=== PATIENT | male | born 1965 | race Caucasian/White ===

== ENCOUNTER 2016-11-17 07:04 | Observation (INO) | payer OTHER ==
[2016-11-17] MEDS ORDERED: DEXAMETHASONE SOD PHOSPHATE 10 MG/ML 1 ML VIAL IV STA (07:20)
[2016-11-17] MEDS ORDERED: IPRATROPIUM 0.5 MG/2.5 ML NEBU INHALATION STA (07:20)
[2016-11-17] MEDS ORDERED: ALBUTEROL NEBULIZED 2.5 MG/3 ML INHALATION STA (07:20)
[2016-11-17] MEDS ORDERED: SODIUM CHLORIDE 0.9% 1,000 ML IV STA (07:20)
--- NOTE | 2016-11-17 07:51 | ED ---
General Adult HPI - General Chief complaint: Shortness of Breath Stated complaint: KARTHIK Time Seen by Provider: 11/17/16 07:15 Source: patient, RN notes reviewed Mode of arrival: wheelchair Limitations: no limitations - History of Present Illness Initial comments: 51-year-old male with no significant past medical history presents with 2 day history of cough and difficult breathing. Patient states that this morning he became significantly more short of breath. He also reports some anterior chest tightness. Patient has no known history of asthma or COPD. He is a long-time smoker smokes approximately three quarters of a pack cigarettes daily. Denies fever or chills. Denies any radiating chest pain. Cough is been nonproductive. No gallop pain. No nausea vomiting or diarrhea. - Related Data Home Medications Medication Instructions Recorded Confirmed Dm/Acetaminophen/Doxylamine [Vicks 2 cap PO HS PRN 11/17/16 11/17/16 Nyquil Liquicaps] Allergies Allergy/AdvReac Type Severity Reaction Status Date / Time No Known Allergies Allergy Verified 11/17/16 07:30 Review of Systems ROS Statement: Those systems with pertinent positive or pertinent negative responses have been documented in the HPI. ROS Other: All systems not noted in ROS Statement are negative. Past Medical History Past Medical History: COPD History of Any Multi-Drug Resistant Organisms: None Reported Past Surgical History: Hernia Repair Past Psychological History: No Psychological Hx Reported Smoking Status: Current every day smoker Past Alcohol Use History: Daily Past Drug Use History: Marijuana General Exam Limitations: no limitations General appearance: alert, in distress Head exam: Present: atraumatic, normocephalic Eye exam: Present: normal appearance, PERRL ENT exam: Present: mucous membranes dry Neck exam: Present: full ROM. Absent: meningismus Respiratory exam: Present: respiratory distress, wheezes, rhonchi, prolonged expiratory Cardiovascular Exam: Present: normal rhythm, tachycardia GI/Abdominal exam: Present: soft. Absent: distended, tenderness Extremities exam: Present: normal inspection, normal capillary refill. Absent: pedal edema, calf tenderness Back exam: Present: normal inspection, full ROM. Absent: tenderness Neurological exam: Present: alert, oriented X3 Psychiatric exam: Present: normal affect, normal mood Skin exam: Present: warm, dry, intact. Absent: cyanosis, diaphoretic Course Vital Signs 11/17/16 11/17/16 11/17/16 07:11 07:31 07:49 Temperature 98.2 F Pulse Rate 115 H 109 H 101 H Respiratory 26 H 24 Rate Blood Pressure 168/121 152/89 O2 Sat by Pulse 94 L 100 Oximetry 11/17/16 11/17/16 07:59 08:17 Temperature Pulse Rate 110 H 108 H Respiratory 20 Rate Blood Pressure 164/94 O2 Sat by Pulse 99 Oximetry - Reevaluation(s) Reevaluation #1: 11/17/16 08:57 On reevaluation, respiratory status has improved, however patient still has accessory muscle use, and end expiratory wheeze. EKG Findings - EKG Comments: EKG Findings:: EKG shows sinus tachycardia with a ventricular rate of 111, AL interval 136, QRS duration 84, QTC 456, no ST segment elevation or depression, no T-wave abnormality Medical Decision Making - Medical Decision Making 51-year-old male no history of asthma or COPD presenting with cough and dyspnea. Patient has bilateral end expiratory wheeze, scattered rhonchi, accessory muscle use. He is given albuterol Atrovent, steroids in the emergency department. Chest x-ray is obtained, negative for focal pneumonia. On reevaluation after nebulized treatment patient still has accessory muscle use and proximal spastic cough as well as an expiratory wheeze. He will be placed in observation for continued treatment. Diagnosis: Acute bronchitis, reactive airway disease, tobacco use - Lab Data Result diagrams: 11/17/16 07:15 11/17/16 07:15 Lab Results 11/17/16 11/17/16 11/17/16 Range/Units 07:15 07:15 07:15 WBC 7.0 (3.8-10.6) k/uL RBC 5.18 (4.30-5.90) m/uL Hgb 17.0 (13.0-17.5) gm/dL Hct 48.6 (39.0-53.0) % MCV 93.9 (80.0-100.0) fL MCH 32.9 (25.0-35.0) pg MCHC 35.0 (31.0-37.0) g/dL RDW 13.3 (11.5-15.5) % Plt Count 211 (150-450) k/uL Neutrophils % 80 % Lymphocytes % 9 % Monocytes % 6 % Eosinophils % 3 % Basophils % 0 % Neutrophils # 5.6 (1.3-7.7) k/uL Lymphocytes # 0.6 L (1.0-4.8) k/uL Monocytes # 0.4 (0-1.0) k/uL Eosinophils # 0.2 (0-0.7) k/uL Basophils # 0.0 (0-0.2) k/uL PT (9.0-12.0) sec INR (<1.2) APTT (22.0-30.0) sec D-Dimer (<0.60) mg/L FEU Sodium 140 (137-145) mmol/L Potassium 4.4 (3.5-5.1) mmol/L Chloride 104 (98-107) mmol/L Carbon Dioxide 26 (22-30) mmol/L Anion Gap 10 mmol/L BUN 9 (9-20) mg/dL Creatinine 0.81 (0.66-1.25) mg/dL Est GFR (MDRD) Af Amer >60 (>60 ml/min/1.73 sqM) Est GFR (MDRD) Non-Af >60 (>60 ml/min/1.73 sqM) Glucose 95 (74-99) mg/dL Calcium 9.6 (8.4-10.2) mg/dL Total Bilirubin 0.4 (0.2-1.3) mg/dL AST 61 H (17-59) U/L ALT 55 (21-72) U/L Alkaline Phosphatase 79 (38-126) U/L Total Creatine Kinase 475 H (55-170) U/L CK-MB (CK-2) 8.7 H* (0.0-2.4) ng/mL CK-MB (CK-2) Rel Index 1.8 Troponin I <0.012 (0.000-0.034) ng/mL NT-Pro-B Natriuret Pep pg/mL Total Protein 7.4 (6.3-8.2) g/dL Albumin 4.6 (3.5-5.0) g/dL 11/17/16 11/17/16 Range/Units 07:15 07:15 WBC (3.8-10.6) k/uL RBC (4.30-5.90) m/uL Hgb (13.0-17.5) gm/dL Hct (39.0-53.0) % MCV (80.0-100.0) fL MCH (25.0-35.0) pg MCHC (31.0-37.0) g/dL RDW (11.5-15.5) % Plt Count (150-450) k/uL Neutrophils % % Lymphocytes % % Monocytes % % Eosinophils % % Basophils % % Neutrophils # (1.3-7.7) k/uL Lymphocytes # (1.0-4.8) k/uL Monocytes # (0-1.0) k/uL Eosinophils # (0-0.7) k/uL Basophils # (0-0.2) k/uL PT 9.5 (9.0-12.0) sec INR 0.9 (<1.2) APTT 24.5 (22.0-30.0) sec D-Dimer 0.29 (<0.60) mg/L FEU Sodium (137-145) mmol/L Potassium (3.5-5.1) mmol/L Chloride (98-107) mmol/L Carbon Dioxide (22-30) mmol/L Anion Gap mmol/L BUN (9-20) mg/dL Creatinine (0.66-1.25) mg/dL Est GFR (MDRD) Af Amer (>60 ml/min/1.73 sqM) Est GFR (MDRD) Non-Af (>60 ml/min/1.73 sqM) Glucose (74-99) mg/dL Calcium (8.4-10.2) mg/dL Total Bilirubin (0.2-1.3) mg/dL AST (17-59) U/L ALT (21-72) U/L Alkaline Phosphatase (38-126) U/L Total Creatine Kinase (55-170) U/L CK-MB (CK-2) (0.0-2.4) ng/mL CK-MB (CK-2) Rel Index Troponin I (0.000-0.034) ng/mL NT-Pro-B Natriuret Pep 78 pg/mL Total Protein (6.3-8.2) g/dL Albumin (3.5-5.0) g/dL Disposition Clinical Impression: Reactive airway disease Disposition: [facility] Referrals: None,Stated [Primary Care Provider] - 1-2 days Decision to Admit Reason: Admit from EC Decision Date: 11/17/16 Decision Time: 08:58
[2016-11-17 07:54] LABS: Basophils % (A) 0 %; CH 33.1; CHCM 35.4; Eosinophils # (A) 0.2 k/uL (0-0.7); Eosinophils % (A) 3 %; HCT 48.6 % (39.0-53.0); HDW 2.35; Luc # (Auto) 0.09; Luc % (Auto) 1; Lymphocytes # (A) 0.6 k/uL (1.0-4.8); Lymphocytes % (A) 9 %; MCH 32.9 pg (25.0-35.0); MCV 93.9 fL (80.0-100.0); Mean Platelet Volume 6.8; Monocytes # (A) 0.4 k/uL (0-1.0); Monocytes % (A) 6 %; Neutrophils # (A) 5.6 k/uL (1.3-7.7); Neutrophils % (A) 80 %; RBC 5.18 m/uL (4.30-5.90); RDW 13.3 % (11.5-15.5); WBC (Perox) 7.28
[2016-11-17 07:55] LABS: ALT 55 U/L (21-72); AST 61 U/L (17-59); Alkaline Phosphatase 79 U/L (38-126); Anion Gap 10 mmol/L; Blood Urea Nitrogen 9 mg/dL (9-20); Calcium 9.6 mg/dL (8.4-10.2); Carbon Dioxide 26 mmol/L (22-30); Chloride 104 mmol/L (98-107); Glucose 95 mg/dL (74-99); Non-African American GFR(MDRD) >60 (>60 ml/min/1.73 sqM); Potassium 4.4 mmol/L (3.5-5.1); Sodium 140 mmol/L (137-145); Total Bilirubin 0.4 mg/dL (0.2-1.3); Total Protein 7.4 g/dL (6.3-8.2)
[2016-11-17 08:01] LABS: INR 0.9 (<1.2); Partial Thromboplastin Time 24.5 sec (22.0-30.0); Prothrombin Time 9.5 sec (9.0-12.0)
[2016-11-17 08:09] LABS: Creatine Kinase 475 U/L (55-170)
--- NOTE | 2016-11-17 08:22 | XR ---
EXAMINATION TYPE: XR chest 2V DATE OF EXAM: 11/17/2016 COMPARISON: 07/04/2011 HISTORY: Shortness of breath TECHNIQUE: Frontal and lateral views of the chest are obtained. FINDINGS: Scattered senescent parenchymal changes noted. Hyperinflation compatible with COPD. No evidence for infiltrate. No evidence for atelectasis. Heart size is stable. Mediastinal structures are stable and grossly unremarkable. No evidence for hilar prominence. Degenerative changes dorsal spine. IMPRESSION: 1. No evidence for acute pulmonary disease.
[2016-11-17 08:23] LABS: Troponin I <0.012 ng/mL (0.000-0.034)
[2016-11-17 08:36] LABS: Creatine Kinase MB 8.7 ng/mL (0.0-2.4)
[2016-11-17] MEDS ORDERED: LEVOFLOXACIN 500 MG TAB PO SCH (09:00)
[2016-11-17] MEDS ORDERED: NICOTINE 21MG/24HR PATCH TRANSDERM SCH (09:00)
[2016-11-17] MEDS ORDERED: predniSONE 20 MG TAB PO SCH (12:00)
[2016-11-17] MEDS: IPRATROPIUM-ALBUTEROL 3 ML NEB INHALATION PRN ×2 (14:06→16:56)
[2016-11-17] MEDS ORDERED: HEPARIN SODIUM,PORCINE 5,000 UNIT/ML 1 ML VIAL SQ SCH (16:00)
[2016-11-17 19:32] VITALS: BP 142/88; PULSE 98; RESP 16; TEMP 98.3
--- NOTE | 2017-01-14 11:49 | P.HPIM ---
History of Present Illness H&P Date: 11/17/16 Chief Complaint: Shortness of breath 51-year-old male with no significant past medical history presents to the ER with complaints of shortness of breath and cough worsening for the past 2 days. Patient otherwise denied any sputum production. No complaints of chest pain patient does have chest tightness. Patient continues to smoke on a daily basis. Denied any nausea vomiting or abdominal pain no fever no chills. No recent illnesses or sick contacts. No recent travel. Review of Systems Constitutional: Patient denies any fever or chills . No generalized weakness or weight loss. Abdomen: Patient denied nausea vomiting and diarrhea and abdominal pain. Cardiovascular: Patient denies any chest pain or short of breath no palpitations. Respiratory: He does have cough without sputum production. Shortness of breath. Neurologic: Patient denied any numbness or tingling headache. Musculoskeletal: Patient denies any complaints of joint swelling or deformity. Skin: Negative Psychiatric: Negative Endocrine: No heat or cold intolerance. No recent weight gain. Genitourinary: No dysuria or hematuria. All other 14 point ROS negative except the above Past Medical History Past Medical History: COPD History of Any Multi-Drug Resistant Organisms: None Reported Past Surgical History: Hernia Repair Additional Past Surgical History / Comment(s): Bilateral inguinal hernia repairs. Past Anesthesia/Blood Transfusion Reactions: No Reported Reaction Smoking Status: Current every day smoker - Past Family History Mother Family Medical History: Diabetes Mellitus Additional Family Medical History / Comment(s): Mother has type II diabetes and trigeminal neuralgia Father Family Medical History: Coronary Artery Disease (CAD) Additional Family Medical History / Comment(s): Father had CABG and a mitral valve replaced. He is . Medications and Allergies Home Medications Medication Instructions Recorded Confirmed Type Dm/Acetaminophen/Doxylamine [Vicks 2 cap PO HS PRN 11/17/16 11/17/16 History Nyquil Liquicaps] Allergies Allergy/AdvReac Type Severity Reaction Status Date / Time No Known Allergies Allergy Verified 11/17/16 07:30 Physical Exam Vitals: Vital Signs Temp Pulse Resp BP Pulse Ox 11/17/16 11:12 98.7 F 90 18 144/98 95 11/17/16 09:47 98.4 F 96 20 137/88 95 11/17/16 08:17 108 H 20 164/94 99 11/17/16 07:59 110 H 11/17/16 07:49 101 H 24 152/89 100 11/17/16 07:31 109 H 11/17/16 07:11 98.2 F 115 H 26 H 168/121 94 L Intake and Output 11/16/16 11/17/16 11/17/16 22:59 06:59 14:59 Other: Weight 79.379 kg Patient Weight 11/18/16 06:59 Weight 79.379 kg PHYSICAL EXAMINATION: Patient is lying in the bed comfortably, no acute distress, awake alert and oriented.. HEENT: Normocephalic. Neck is supple. Pupils reactive. Nostrils clear. Oral cavity is moist. Ears reveal no drainage. Neck reveals no JVD, carotid bruits, or thyromegaly. CHEST EXAMINATION: Trachea is central. Symmetrical expansion. Bilateral air entry diminished with expiratory wheezing CARDIAC: Normal S1, S2 with no gallops. No murmurs ABDOMEN: Soft. Bowel sounds normal. No organomegaly. No abdominal bruits. Extremities: reveal no edema. No clubbing or cyanosis Neurologically awake, alert, oriented x3 with well-coordinated movements. No focal deficits noted Skin: No rash or skin lesions. Psychiatric: Operative. Nonsuicidal Musculoskeletal: No joint swelling or deformity. Normal range of motion. Results CBC & Chem 7: 11/17/16 07:15 11/17/16 07:15 Labs: Abnormal Lab Results - Last 24 Hours (Table) 11/17/16 11/17/16 11/17/16 Range/Units 07:15 07:15 07:15 Lymphocytes # 0.6 L (1.0-4.8) k/uL AST 61 H (17-59) U/L Total Creatine Kinase 475 H (55-170) U/L CK-MB (CK-2) 8.7 H* (0.0-2.4) ng/mL Thrombosis Risk Factor Assmnt - Choose All That Apply Any of the Below Risk Factors Present?: Yes Each Factor Represents 1 point: Age 41-60 years, Obesity (BMI >25) Other Risk Factors: No Other congenital or acquired thrombophilia - If yes, enter type in comment: No Thrombosis Risk Factor Assessment Total Risk Factor Score: 2 Thrombosis Risk Factor Assessment Level: Low Risk Assessment and Plan Assessment: #1 acute bronchospasm. Suspected underlying COPD with exacerbation Plan: Patient will be continued on DuoNeb's, prednisone and antibiotics in the form of levofloxacin. We will continue to monitor closely. Patient was advised to follow with pulmonary clinic upon discharge for pulmonary function tests. We will continue to monitor the patient and further recommendations as to on the clinical course.
--- NOTE | 2017-01-14 11:51 | P.DS ---
Providers Date of admission: 11/17/16 08:55 Expected date of discharge: 11/17/16 Attending physician: Randall Hummel Primary care physician: Stated None Hospital Course: Discharge diagnosis #1 acute bronchospasm. Suspected underlying COPD with exacerbation Hospital course 51-year-old male with no significant past medical history presents to the ER with complaints of shortness of breath and cough worsening for the past 2 days. Patient otherwise denied any sputum production. No complaints of chest pain patient does have chest tightness. Patient continues to smoke on a daily basis. Denied any nausea vomiting or abdominal pain no fever no chills. No recent illnesses or sick contacts. No recent travel. Patient was continued on DuoNeb's, prednisone and antibiotics in the form of levofloxacin. Patient was advised to follow with pulmonary clinic upon discharge for pulmonary function tests. We will continue to monitor the patient and further recommendations as to on the clinical course. Patient left AMA Patient Condition at Discharge: Fair Plan - Discharge Summary New Discharge Prescriptions: No Action Dm/Acetaminophen/Doxylamine [Vicks Nyquil Liquicaps] 2 cap PO HS PRN PRN Reason: Cold Symptoms Discharge Medication List Dm/Acetaminophen/Doxylamine [Vicks Nyquil Liquicaps] 2 cap PO HS PRN 11/17/16 [ History] Follow up Appointment(s)/Referral(s): None,Stated [Primary Care Provider] - 1-2 days Discharge Disposition: Left Against Medical Advice
== END 2016-11-17 21:18 | disposition left against medical advice (07) ==
LOC: EC 07:04 → 3OBS 08:55
PROVIDERS: ADMIT Internal Medicine; ATTEND Internal Medicine
DX: J45.909 Unspecified asthma, uncomplicated (principal); J20.9 Acute bronchitis, unspecified; F17.210 Nicotine dependence, cigarettes, uncomplicated
CPT/HCPCS: 36415; 71020; 80053; 82550; 82553; 83880; 84484; 85025; 85379; 85610; 85730; 87040; 93005; 94640; 96361; 96374; 99285

== ENCOUNTER 2021-07-08 21:37 | Inpatient (IN) | payer OTHER ==
--- NOTE | 2021-07-08 23:03 | ED ---
SOB HPI - General Chief Complaint: Shortness of Breath Stated Complaint: KARTHIK Time Seen by Provider: 07/08/21 23:01 Source: patient, RN notes reviewed, old records reviewed Mode of arrival: wheelchair Limitations: no limitations - History of Present Illness Initial Comments: Is a 56-year-old male who does have history of COPD. Patient presented today fo r cough congestion fever mainly not feeling well. He doesn't have any travel history sick contacts did for [place] today which was negative. No real chest pain just shortness of breath cough congestion. No travel history no significant sick contacts. Patient has had rotavirus in the past. MD Complaint: shortness of breath, cough, "asthma attack" (Fever) -: days(s) Severity: moderate Severity scale (1-10): 7 Quality: aching Consistency: constant Improves With: nothing Worsens With: exertion, movement Known History Of: COPD, asthma, recurrent pneumonia Context: recent URI, anxiety, recent illness Associated Symptoms: pain with inspiration, fever, cough, sputum production Treatments Prior to Arrival: none - Related Data Home Medications Medication Instructions Recorded Confirmed Dm/Acetaminophen/Doxylamine [Vicks 2 cap PO HS PRN 11/17/16 11/17/16 Nyquil Liquicaps] Allergies Allergy/AdvReac Type Severity Reaction Status Date / Time No Known Allergies Allergy Verified 07/08/21 22:53 Review of Systems ROS Statement: Those systems with pertinent positive or pertinent negative responses have been documented in the HPI. ROS Other: All systems not noted in ROS Statement are negative. Past Medical History Past Medical History: COPD History of Any Multi-Drug Resistant Organisms: None Reported Past Surgical History: Hernia Repair Additional Past Surgical History / Comment(s): Bilateral inguinal hernia repairs. Past Anesthesia/Blood Transfusion Reactions: No Reported Reaction Past Psychological History: No Psychological Hx Reported Smoking Status: Current every day smoker Past Alcohol Use History: Daily Past Drug Use History: Marijuana - Past Family History Mother Family Medical History: Diabetes Mellitus Additional Family Medical History / Comment(s): Mother has type II diabetes and trigeminal neuralgia Father Family Medical History: Coronary Artery Disease (CAD) Additional Family Medical History / Comment(s): Father had CABG and a mitral valve replaced. He is . General Exam Limitations: no limitations General appearance: alert, in no apparent distress, anxious Head exam: Present: atraumatic, normocephalic, normal inspection Eye exam: Present: normal appearance, PERRL, EOMI. Absent: scleral icterus, conjunctival injection, periorbital swelling ENT exam: Present: normal exam, mucous membranes dry Neck exam: Present: normal inspection. Absent: tenderness, meningismus, lym phadenopathy Respiratory exam: Present: respiratory distress, wheezes, accessory muscle use, decreased breath sounds, prolonged expiratory. Absent: rales, rhonchi, stridor Cardiovascular Exam: Present: normal rhythm, tachycardia, normal heart sounds. Absent: systolic murmur, diastolic murmur, rubs, gallop, clicks GI/Abdominal exam: Present: soft, normal bowel sounds. Absent: distended, tenderness, guarding, rebound, rigid Extremities exam: Present: normal inspection, full ROM, normal capillary refill. Absent: tenderness, pedal edema, joint swelling, calf tenderness Back exam: Present: normal inspection Neurological exam: Present: alert, oriented X3, CN II-XII intact Psychiatric exam: Present: normal affect, normal mood Skin exam: Present: warm, dry, intact, normal color. Absent: rash Course Vital Signs 07/08/21 07/09/21 07/09/21 22:48 00:20 00:25 Temperature 103 F H Pulse Rate 154 H 140 H 138 H Respiratory 24 Rate Blood Pressure 121/74 O2 Sat by Pulse 93 L Oximetry - Reevaluation(s) Reevaluation #1: 07/08/21 23:40 Medical record is reviewed Reevaluation #2: 07/09/21 00:55 Patient feeling improved here in the emergency department Reevaluation #3: 07/09/21 00:56 Patient informed results and questions answered - Consultations Consultation #1: Spoke with allegra who agrees to admit this patient Medical Decision Making - Medical Decision Making 56 male in mild distress with fever positive for influenza COPD exacerbation and impending alcohol withdrawal. Patient will be admitted for monitoring of the above, supportive care also hypomagnesemia and replacement - Lab Data Result diagrams: 07/08/21 23:17 07/08/21 23:17 Lab Results 07/08/21 07/08/21 07/08/21 Range/Units 22:56 22:56 23:17 WBC 5.0 (3.8-10.6) k/uL RBC 3.39 L (4.30-5.90) m/uL Hgb 14.3 (13.0-17.5) gm/dL Hct 40.5 (39.0-53.0) % MCV 119.4 H (80.0-100.0) fL MCH 42.3 H (25.0-35.0) pg MCHC 35.4 (31.0-37.0) g/dL RDW 15.7 H (11.5-15.5) % Plt Count 142 L (150-450) k/uL MPV 8.0 Neutrophils % (Manual) 82 % Band Neuts % (Manual) 5 % Lymphocytes % (Manual) 3 % Monocytes % (Manual) 9 % Basophils % (Manual) 1 % Neutrophils # (Manual) 4.30 (1.3-7.7) k/uL Lymphocytes # (Manual) 0.15 L (1.0-4.8) k/uL Monocytes # (Manual) 0.45 (0-1.0) k/uL Basophils # (Manual) 0.05 (0-0.2) k/uL Nucleated RBCs 0 (0-0) /100 WBC Manual Slide Review Performed Poikilocytosis (manual Present Macrocytosis Marked A Stomatocytes Present PT (9.0-12.0) sec INR (<1.2) APTT (22.0-30.0) sec Sodium (137-145) mmol/L Potassium (3.5-5.1) mmol/L Chloride (98-107) mmol/L Carbon Dioxide (22-30) mmol/L Anion Gap mmol/L BUN (9-20) mg/dL Creatinine (0.66-1.25) mg/dL Est GFR (CKD-EPI)AfAm (>60 ml/min/1.73 sqM) Est GFR (CKD-EPI)NonAf (>60 ml/min/1.73 sqM) Glucose (74-99) mg/dL Plasma Lactic Acid Pop (0.7-2.0) mmol/L Calcium (8.4-10.2) mg/dL Magnesium (1.6-2.3) mg/dL Total Bilirubin (0.2-1.3) mg/dL AST (17-59) U/L ALT (4-49) U/L Alkaline Phosphatase (38-126) U/L Troponin I (0.000-0.034) ng/mL C-Reactive Protein (<1.0) mg/dL NT-Pro-B Natriuret Pep pg/mL Total Protein (6.3-8.2) g/dL Albumin (3.5-5.0) g/dL Coronavirus (PCR) Not Detected (Not Detectd) Influenza Type A RNA Detected H (Not Detectd) Influenza Type B (PCR) Not Detected (Not Detectd) 07/08/21 07/08/21 07/08/21 Range/Units 23:17 23:17 23:17 WBC (3.8-10.6) k/uL RBC (4.30-5.90) m/uL Hgb (13.0-17.5) gm/dL Hct (39.0-53.0) % MCV (80.0-100.0) fL MCH (25.0-35.0) pg MCHC (31.0-37.0) g/dL RDW (11.5-15.5) % Plt Count (150-450) k/uL MPV Neutrophils % (Manual) % Band Neuts % (Manual) % Lymphocytes % (Manual) % Monocytes % (Manual) % Basophils % (Manual) % Neutrophils # (Manual) (1.3-7.7) k/uL Lymphocytes # (Manual) (1.0-4.8) k/uL Monocytes # (Manual) (0-1.0) k/uL Basophils # (Manual) (0-0.2) k/uL Nucleated RBCs (0-0) /100 WBC Manual Slide Review Poikilocytosis (manual Macrocytosis Stomatocytes PT 10.8 (9.0-12.0) sec INR 1.0 (<1.2) APTT 27.7 (22.0-30.0) sec Sodium 127 L (137-145) mmol/L Potassium 3.8 (3.5-5.1) mmol/L Chloride 93 L (98-107) mmol/L Carbon Dioxide 26 (22-30) mmol/L Anion Gap 8 mmol/L BUN 15 (9-20) mg/dL Creatinine 0.87 (0.66-1.25) mg/dL Est GFR (CKD-EPI)AfAm >90 (>60 ml/min/1.73 sqM) Est GFR (CKD-EPI)NonAf >90 (>60 ml/min/1.73 sqM) Glucose 105 H (74-99) mg/dL Plasma Lactic Acid Pop 1.6 (0.7-2.0) mmol/L Calcium 8.6 (8.4-10.2) mg/dL Magnesium 0.9 L* (1.6-2.3) mg/dL Total Bilirubin 1.0 (0.2-1.3) mg/dL AST 119 H (17-59) U/L ALT 38 (4-49) U/L Alkaline Phosphatase 122 (38-126) U/L Troponin I (0.000-0.034) ng/mL C-Reactive Protein 5.9 H (<1.0) mg/dL NT-Pro-B Natriuret Pep pg/mL Total Protein 6.9 (6.3-8.2) g/dL Albumin 4.3 (3.5-5.0) g/dL Coronavirus (PCR) (Not Detectd) Influenza Type A RNA (Not Detectd) Influenza Type B (PCR) (Not Detectd) 07/08/21 07/08/21 Range/Units 23:17 23:17 WBC (3.8-10.6) k/uL RBC (4.30-5.90) m/uL Hgb (13.0-17.5) gm/dL Hct (39.0-53.0) % MCV (80.0-100.0) fL MCH (25.0-35.0) pg MCHC (31.0-37.0) g/dL RDW (11.5-15.5) % Plt Count (150-450) k/uL MPV Neutrophils % (Manual) % Band Neuts % (Manual) % Lymphocytes % (Manual) % Monocytes % (Manual) % Basophils % (Manual) % Neutrophils # (Manual) (1.3-7.7) k/uL Lymphocytes # (Manual) (1.0-4.8) k/uL Monocytes # (Manual) (0-1.0) k/uL Basophils # (Manual) (0-0.2) k/uL Nucleated RBCs (0-0) /100 WBC Manual Slide Review Poikilocytosis (manual Macrocytosis Stomatocytes PT (9.0-12.0) sec INR (<1.2) APTT (22.0-30.0) sec Sodium (137-145) mmol/L Potassium (3.5-5.1) mmol/L Chloride (98-107) mmol/L Carbon Dioxide (22-30) mmol/L Anion Gap mmol/L BUN (9-20) mg/dL Creatinine (0.66-1.25) mg/dL Est GFR (CKD-EPI)AfAm (>60 ml/min/1.73 sqM) Est GFR (CKD-EPI)NonAf (>60 ml/min/1.73 sqM) Glucose (74-99) mg/dL Plasma Lactic Acid Pop (0.7-2.0) mmol/L Calcium (8.4-10.2) mg/dL Magnesium (1.6-2.3) mg/dL Total Bilirubin (0.2-1.3) mg/dL AST (17-59) U/L ALT (4-49) U/L Alkaline Phosphatase (38-126) U/L Troponin I 0.023 (0.000-0.034) ng/mL C-Reactive Protein (<1.0) mg/dL NT-Pro-B Natriuret Pep 250 pg/mL Total Protein (6.3-8.2) g/dL Albumin (3.5-5.0) g/dL Coronavirus (PCR) (Not Detectd) Influenza Type A RNA (Not Detectd) Influenza Type B (PCR) (Not Detectd) - EKG Data -: EKG Interpreted by Me (EKG is sinus tachycardia 151 PA 126 QRS 90 QTC 365) - Radiology Data Radiology results: report reviewed (Chest x-rays negative for acute disease), image reviewed Critical Care Time Critical Care Time: Yes Total Critical Care Time: 31 Disposition Clinical Impression: Reactive airway disease, Acute exacerbation of chronic obstructive pulmonary disease, Fever, Tachycardia, Hypomagnesemia, Influenza A, Weakness, Alcohol withdrawal, Sepsis Disposition: ADMITTED IP TO THIS HOSP Condition: Fair Is patient prescribed a controlled substance at d/c from ED?: No Referrals: None,Stated [Primary Care Provider] - 1-2 days
[2021-07-08] MEDS ORDERED: SODIUM CHLORIDE 0.9% 500 ML 500 ML IV STA (23:05)
[2021-07-08] MEDS ORDERED: IPRATROPIUM-ALBUTEROL 3 ML NEB INHALATION STA (23:05)
[2021-07-08] MEDS ORDERED: IBUPROFEN 800 MG TAB PO STA (23:05)
[2021-07-08] MEDS ORDERED: ACETAMINOPHEN TAB 500 MG TAB PO STA (23:05)
[2021-07-08] MEDS ORDERED: SODIUM CHLORIDE 0.9% 1,000 ML IV STA ×2 (23:05)
--- NOTE | 2021-07-08 23:45 | XR ---
EXAMINATION TYPE: XR chest 1V portable DATE OF EXAM: 07/08/2021 COMPARISON: 11/17/2016 HISTORY: Short of breath TECHNIQUE: FINDINGS: Heart is normal. Lungs are clear of infiltrate. No heart failure. There are chest leads. Co stophrenic angles are clear. IMPRESSION: No active cardiopulmonary disease. No change.
[2021-07-08 23:49] LABS: HCT 40.5 % (39.0-53.0); HGB 14.3 gm/dL (13.0-17.5); MCHC 35.4 g/dL (31.0-37.0); MCV 119.4 fL (80.0-100.0); Macrocytosis Marked; Platelet Count 142 k/uL (150-450); RBC 3.39 m/uL (4.30-5.90); RDW 15.7 % (11.5-15.5)
[2021-07-08 23:50] LABS: MCH 42.3 pg (25.0-35.0)
[2021-07-08 23:58] LABS: Partial Thromboplastin Time 27.7 sec (22.0-30.0); Prothrombin Time 10.8 sec (9.0-12.0)
[2021-07-09 00:07] LABS: ALT 38 U/L (4-49); AST 119 U/L (17-59); African American GFR (CKD) >90 (>60 ml/min/1.73 sqM); Albumin 4.3 g/dL (3.5-5.0); Alkaline Phosphatase 122 U/L (38-126); Anion Gap 8 mmol/L; Blood Urea Nitrogen 15 mg/dL (9-20); C Reactive Protein 5.9 mg/dL (<1.0); Calcium 8.6 mg/dL (8.4-10.2); Carbon Dioxide 26 mmol/L (22-30); Chloride 93 mmol/L (98-107); Glucose 105 mg/dL (74-99); Non-African American GFR(CKD) >90 (>60 ml/min/1.73 sqM); Potassium 3.8 mmol/L (3.5-5.1); Sodium 127 mmol/L (137-145); Total Protein 6.9 g/dL (6.3-8.2)
[2021-07-09 00:12] LABS: Magnesium 0.9 mg/dL (1.6-2.3)
[2021-07-09] MEDS ORDERED: SODIUM CHLORIDE 0.9% 1,000 ML IV STA (00:43)
[2021-07-09] MEDS ORDERED: MAGNESIUM OXIDE 400 MG TAB PO STA (00:43)
[2021-07-09] MEDS ORDERED: SODIUM CHLORIDE 0.9% 500 ML 500 ML IV STA (00:43)
[2021-07-09] MEDS ORDERED: OSELTAMIVIR 75 MG CAP PO STA (00:44)
[2021-07-09] MEDS ORDERED: ONDANSETRON 4 MG/2 ML VIAL IVP STA (00:45)
[2021-07-09] MEDS ORDERED: DIAZEPAM 5 MG/ML 2 ML INJ IVP STA (00:45)
[2021-07-09] MEDS ORDERED: DIAZEPAM 5 MG/ML 2 ML INJ IVP PRN (00:45)
[2021-07-09] MEDS ORDERED: ONDANSETRON 4 MG/2 ML VIAL IVP PRN (00:45)
[2021-07-09] MEDS ORDERED: LORazepam 2 MG/ML INJ IV STA ×6 (00:45→04:01)
[2021-07-09 00:49] LABS: Band Neutrophils % 5 %; Basophils # (M) 0.05 k/uL (0-0.2); Lymphocytes # (M) 0.15 k/uL (1.0-4.8); Monocytes # (M) 0.45 k/uL (0-1.0); Neutrophils % (M) 82 %; Nucleated Red Blood Cells 0 /100 WBC (0-0); Total Cells Counted 100
[2021-07-09 00:51] LABS: Poikilocytosis (M) Present; Stomatocytes Present
[2021-07-09] MEDS ORDERED: methylPREDNISolone SOD SUCCI 125 MG/2 ML VIAL IV STA (00:52)
[2021-07-09] MEDS ORDERED: NALOXONE 0.4 MG/ML 1 ML VIAL IV PRN ×2 (00:52→04:02)
[2021-07-09] MEDS ORDERED: ACETAMINOPHEN TAB 325 MG TAB PO PRN (00:52)
[2021-07-09] MEDS ORDERED: IPRATROPIUM-ALBUTEROL 3 ML NEB INHALATION PRN (00:52)
[2021-07-09] MEDS ORDERED: MORPHINE SULFATE 4 MG/ML SYRINGE IV PRN (00:52)
[2021-07-09] MEDS ORDERED: IPRATROPIUM-ALBUTEROL 3 ML NEB INHALATION STA (00:52)
[2021-07-09] MEDS ORDERED: THIAMINE 100 MG/ML 2 ML VIAL IM ONE (01:00)
[2021-07-09] MEDS: MAGNESIUM SULFATE-D5W PMX 1 GM in DEXTROSE/WATER 1 100ML.BAG IVPB SCH ×4 (01:11→06:09)
[2021-07-09] MEDS: DEXTROSE 5%-0.45% NACL 1,000 ML IV SCH ×2 (01:14→15:14)
[2021-07-09] MEDS: LORazepam 2 MG/ML INJ IV PRN ×2 (03:17→03:25)
[2021-07-09] MEDS ORDERED: MIDAZOLAM 1 MG/ML 5 ML VIAL IV STA (03:55)
[2021-07-09] MEDS ORDERED: SUCCINYLCHOLINE CHLORIDE VIAL 200 MG/10 ML VIAL IV STA (03:58)
[2021-07-09] MEDS ORDERED: PROPOFOL 10 MG/ML 20 ML VIAL IV ONE (04:02)
--- NOTE | 2021-07-09 04:06 | ED ---
Medical Decision Making - Medical Decision Making 56-year-old male date on condition. Patient does have influenza with road going to significantly active delirium tremens requiring significant amounts of Ativan to the point of unresponsiveness not involuntary movements possible seizure-like activity. Patient intubated for airway protection and will be transferred inpatient care in the ICU - Lab Data Result diagrams: 07/08/21 23:17 07/08/21 23:17 Lab Results 07/08/21 07/08/21 07/08/21 Range/Units 22:56 22:56 23:17 WBC 5.0 (3.8-10.6) k/uL RBC 3.39 L (4.30-5.90) m/uL Hgb 14.3 (13.0-17.5) gm/dL Hct 40.5 (39.0-53.0) % MCV 119.4 H (80.0-100.0) fL MCH 42.3 H (25.0-35.0) pg MCHC 35.4 (31.0-37.0) g/dL RDW 15.7 H (11.5-15.5) % Plt Count 142 L (150-450) k/uL MPV 8.0 Neutrophils % (Manual) 82 % Band Neuts % (Manual) 5 % Lymphocytes % (Manual) 3 % Monocytes % (Manual) 9 % Basophils % (Manual) 1 % Neutrophils # (Manual) 4.30 (1.3-7.7) k/uL Lymphocytes # (Manual) 0.15 L (1.0-4.8) k/uL Monocytes # (Manual) 0.45 (0-1.0) k/uL Basophils # (Manual) 0.05 (0-0.2) k/uL Nucleated RBCs 0 (0-0) /100 WBC Manual Slide Review Performed Poikilocytosis (manual Present Macrocytosis Marked A Stomatocytes Present PT (9.0-12.0) sec INR (<1.2) APTT (22.0-30.0) sec Sodium (137-145) mmol/L Potassium (3.5-5.1) mmol/L Chloride (98-107) mmol/L Carbon Dioxide (22-30) mmol/L Anion Gap mmol/L BUN (9-20) mg/dL Creatinine (0.66-1.25) mg/dL Est GFR (CKD-EPI)AfAm (>60 ml/min/1.73 sqM) Est GFR (CKD-EPI)NonAf (>60 ml/min/1.73 sqM) Glucose (74-99) mg/dL Plasma Lactic Acid Pop (0.7-2.0) mmol/L Calcium (8.4-10.2) mg/dL Magnesium (1.6-2.3) mg/dL Total Bilirubin (0.2-1.3) mg/dL AST (17-59) U/L ALT (4-49) U/L Alkaline Phosphatase (38-126) U/L Troponin I (0.000-0.034) ng/mL C-Reactive Protein (<1.0) mg/dL NT-Pro-B Natriuret Pep pg/mL Total Protein (6.3-8.2) g/dL Albumin (3.5-5.0) g/dL Coronavirus (PCR) Not Detected (Not Detectd) Influenza Type A RNA Detected H (Not Detectd) Influenza Type B (PCR) Not Detected (Not Detectd) 07/08/21 07/08/21 07/08/21 Range/Units 23:17 23:17 23:17 WBC (3.8-10.6) k/uL RBC (4.30-5.90) m/uL Hgb (13.0-17.5) gm/dL Hct (39.0-53.0) % MCV (80.0-100.0) fL MCH (25.0-35.0) pg MCHC (31.0-37.0) g/dL RDW (11.5-15.5) % Plt Count (150-450) k/uL MPV Neutrophils % (Manual) % Band Neuts % (Manual) % Lymphocytes % (Manual) % Monocytes % (Manual) % Basophils % (Manual) % Neutrophils # (Manual) (1.3-7.7) k/uL Lymphocytes # (Manual) (1.0-4.8) k/uL Monocytes # (Manual) (0-1.0) k/uL Basophils # (Manual) (0-0.2) k/uL Nucleated RBCs (0-0) /100 WBC Manual Slide Review Poikilocytosis (manual Macrocytosis Stomatocytes PT 10.8 (9.0-12.0) sec INR 1.0 (<1.2) APTT 27.7 (22.0-30.0) sec Sodium 127 L (137-145) mmol/L Potassium 3.8 (3.5-5.1) mmol/L Chloride 93 L (98-107) mmol/L Carbon Dioxide 26 (22-30) mmol/L Anion Gap 8 mmol/L BUN 15 (9-20) mg/dL Creatinine 0.87 (0.66-1.25) mg/dL Est GFR (CKD-EPI)AfAm >90 (>60 ml/min/1.73 sqM) Est GFR (CKD-EPI)NonAf >90 (>60 ml/min/1.73 sqM) Glucose 105 H (74-99) mg/dL Plasma Lactic Acid Pop 1.6 (0.7-2.0) mmol/L Calcium 8.6 (8.4-10.2) mg/dL Magnesium 0.9 L* (1.6-2.3) mg/dL Total Bilirubin 1.0 (0.2-1.3) mg/dL AST 119 H (17-59) U/L ALT 38 (4-49) U/L Alkaline Phosphatase 122 (38-126) U/L Troponin I (0.000-0.034) ng/mL C-Reactive Protein 5.9 H (<1.0) mg/dL NT-Pro-B Natriuret Pep pg/mL Total Protein 6.9 (6.3-8.2) g/dL Albumin 4.3 (3.5-5.0) g/dL Coronavirus (PCR) (Not Detectd) Influenza Type A RNA (Not Detectd) Influenza Type B (PCR) (Not Detectd) 07/08/21 07/08/21 Range/Units 23:17 23:17 WBC (3.8-10.6) k/uL RBC (4.30-5.90) m/uL Hgb (13.0-17.5) gm/dL Hct (39.0-53.0) % MCV (80.0-100.0) fL MCH (25.0-35.0) pg MCHC (31.0-37.0) g/dL RDW (11.5-15.5) % Plt Count (150-450) k/uL MPV Neutrophils % (Manual) % Band Neuts % (Manual) % Lymphocytes % (Manual) % Monocytes % (Manual) % Basophils % (Manual) % Neutrophils # (Manual) (1.3-7.7) k/uL Lymphocytes # (Manual) (1.0-4.8) k/uL Monocytes # (Manual) (0-1.0) k/uL Basophils # (Manual) (0-0.2) k/uL Nucleated RBCs (0-0) /100 WBC Manual Slide Review Poikilocytosis (manual Macrocytosis Stomatocytes PT (9.0-12.0) sec INR (<1.2) APTT (22.0-30.0) sec Sodium (137-145) mmol/L Potassium (3.5-5.1) mmol/L Chloride (98-107) mmol/L Carbon Dioxide (22-30) mmol/L Anion Gap mmol/L BUN (9-20) mg/dL Creatinine (0.66-1.25) mg/dL Est GFR (CKD-EPI)AfAm (>60 ml/min/1.73 sqM) Est GFR (CKD-EPI)NonAf (>60 ml/min/1.73 sqM) Glucose (74-99) mg/dL Plasma Lactic Acid Pop (0.7-2.0) mmol/L Calcium (8.4-10.2) mg/dL Magnesium (1.6-2.3) mg/dL Total Bilirubin (0.2-1.3) mg/dL AST (17-59) U/L ALT (4-49) U/L Alkaline Phosphatase (38-126) U/L Troponin I 0.023 (0.000-0.034) ng/mL C-Reactive Protein (<1.0) mg/dL NT-Pro-B Natriuret Pep 250 pg/mL Total Protein (6.3-8.2) g/dL Albumin (3.5-5.0) g/dL Coronavirus (PCR) (Not Detectd) Influenza Type A RNA (Not Detectd) Influenza Type B (PCR) (Not Detectd) - Radiology Data Radiology results: report reviewed (Chest x-ray positive for ET tube), image reviewed Critical Care Time Critical Care Time: Yes Total Critical Care Time: 65 Disposition Clinical Impression: Reactive airway disease, Acute exacerbation of chronic obstructive pulmonary disease, Fever, Tachycardia, Hypomagnesemia, Influenza A, Weakness, Alcohol withdrawal, Sepsis, Acute respiratory failure, Acute respiratory distress syndrome in adult, Delirium tremens Disposition: ADMITTED IP TO THIS HOSP Condition: Critical Is patient prescribed a controlled substance at d/c from ED?: No Procedures - [place] Protocol (Time Out) Nurse: Cari Goodman R - Intubation Sedative: Versed Paralytic: Succinylcholine Laryngoscope: Diomedes Size: 4 ET Tube Size: 8 ET Tube Uncuffed: No Tube Secured Location: teeth Tube Placement Confirmation: visualized tube passing through cords, equal breath sounds bilaterally, no breath sounds over epigastrium, confirmation by capnometry Patient Tolerated Procedure: well Intubation Complications: none
[2021-07-09] MEDS ORDERED: ACETAMINOPHEN IV (For NPO) 1,000 MG in EMPTY BAG 1 BAG IVPB ONE (04:15)
[2021-07-09 04:36] LABS: ABG Base Excess -5.9 mmol/L; ABG HCO3 22 mmol/L (21-25); ABG Oxygen Saturation 99.4 % (94-97); ABG PCO2 59 mmHg (35-45); ABG PO2 >400 mmHg (83-108); ABG TCO2 24 mmol/L (19-24); Allen Test Performed? Yes
[2021-07-09 04:44] LABS: ABG PH 7.19 (7.35-7.45)
--- NOTE | 2021-07-09 04:53 | P.HPIM ---
History of Present Illness H&P Date: 07/09/21 The patient is a 56-year-old male with a PMH of EtOH abuse and COPD who had presented to the emergency room for fever and overall not feeling well. The patient was reportedly denying experiencing chest discomfort or shortness of breath. While in the emergency room, the patient was septic and developed delirium tremens. He received 20 mg of Ativan IV push without significant improvement. He subsequently had a seizure and was intubated for airway protection. Laboratory evaluation revealed magnesium of 0.9, troponin 0.023, lactic acid 1.6, and influenza type A positive. Initial EKG had revealed sinus tachycardia with APCs at 151 bpm. The patient was intubated at the time of evaluation and no history could thereby be obtained. Review of systems: Unable to obtain as patient intubated Physical examination: General: non toxic, no distress, appears at stated age, normal weight Derm: no unusual rashes/lesions no unusual ecchymoses, warm, dry Head: atraumatic, normocephalic, symmetric Eyes: Anicteric sclera, pupils equal round reactive to light ENT: Nose and ears atraumatic Neck: No thyromegaly, no cervical lymphadenopathy, trachea midline, supple Mouth: no lip lesion Cardiovascular: S1S2 reg, no murmur, positive posterior tibial pulse bilateral, no edema, capillary refill less than 2 seconds Lungs: CTA bilateral, no rhonchi, no rales , no accessory muscle use Abdominal: soft, nontender to palpation, no guarding, no appreciable organomegaly, normal bowel sounds Ext: no gross muscle atrophy, no contractures, Neuro: Unable to assess, unresponsive to noxious stimuli Assessment/plan Sepsis secondary to influenza infection -Continue with Tamiflu -IVFs -F/u cultures Delirium tremens -CIWA protocol Hypomagnesemia -Replace and monitor Acute hypoxic respiratory failure with baseline COPD -Continue with Solu-Medrol DVT prophylaxis -Heparin subcu The patient is admitted with an anticipated greater than 2 midnight stay for evaluation of sepsis, influenza CODE STATUS: Full Code Anticipated discharge date: 3-[address]: Home Past Medical History Past Medical History: COPD History of Any Multi-Drug Resistant Organisms: None Reported Past Surgical History: Hernia Repair Additional Past Surgical History / Comment(s): Bilateral inguinal hernia repairs. Past Anesthesia/Blood Transfusion Reactions: No Reported Reaction Past Psychological History: No Psychological Hx Reported Smoking Status: Current every day smoker Past Alcohol Use History: Daily Past Drug Use History: Marijuana - Past Family History Mother Family Medical History: Diabetes Mellitus Additional Family Medical History / Comment(s): Mother has type II diabetes and trigeminal neuralgia Father Family Medical History: Coronary Artery Disease (CAD) Additional Family Medical History / Comment(s): Father had CABG and a mitral valve replaced. He is . Medications and Allergies Home Medications Medication Instructions Recorded Confirmed Type Dm/Acetaminophen/Doxylamine [Vicks 2 cap PO HS PRN 11/17/16 11/17/16 History Nyquil Liquicaps] Allergies Allergy/AdvReac Type Severity Reaction Status Date / Time No Known Allergies Allergy Verified 07/08/21 22:53 Physical Exam Vitals: Vital Signs Temp Pulse Resp BP Pulse Ox 07/09/21 04:00 128 H 16 256/150 98 07/09/21 03:52 146 H 18 189/136 98 07/09/21 03:29 130 H 22 146/96 07/09/21 03:16 126 H 18 127/85 94 L 07/09/21 02:59 123 H 18 126/89 97 07/09/21 02:44 117 H 07/09/21 02:36 117 H 07/09/21 01:00 101.2 F H 115 H 20 111/69 96 07/09/21 00:25 138 H 07/09/21 00:20 140 H 07/08/21 22:48 103 F H 154 H 24 121/74 93 L Intake and Output 07/08/21 07/08/21 07/09/21 14:59 22:59 06:59 Other: Weight 77.111 kg Results CBC & Chem 7: 07/08/21 23:17 07/08/21 23:17 Labs: Abnormal Lab Results - Last 24 Hours (Table) 07/08/21 07/08/21 07/08/21 Range/Units 22:56 23:17 23:17 RBC 3.39 L (4.30-5.90) m/uL MCV 119.4 H (80.0-100.0) fL MCH 42.3 H (25.0-35.0) pg RDW 15.7 H (11.5-15.5) % Plt Count 142 L (150-450) k/uL Lymphocytes # (Manual) 0.15 L (1.0-4.8) k/uL Macrocytosis Marked A Sodium 127 L (137-145) mmol/L Chloride 93 L (98-107) mmol/L Glucose 105 H (74-99) mg/dL Magnesium 0.9 L* (1.6-2.3) mg/dL AST 119 H (17-59) U/L C-Reactive Protein 5.9 H (<1.0) mg/dL Influenza Type A RNA Detected H (Not Detectd)
[2021-07-09] MEDS: MIDAZOLAM HCL 50 MG in SODIUM CHLORIDE 0.9% 40 ML IV SCH ×2 (04:59→09:25)
[2021-07-09 05:01] LABS: Basophils % (A) 1 %; Eosinophils % (A) 0 %; HCT 37.8 % (39.0-53.0); HGB 12.9 gm/dL (13.0-17.5); Lymphocytes # (A) 0.4 k/uL (1.0-4.8); Lymphocytes % (A) 8 %; MCH 41.2 pg (25.0-35.0); MCHC 34.1 g/dL (31.0-37.0); MCV 120.8 fL (80.0-100.0); Macrocytosis Marked; Monocytes # (A) 0.1 k/uL (0-1.0); Monocytes % (A) 2 %; Neutrophils # (A) 4.8 k/uL (1.3-7.7); Neutrophils % (A) 88 %; Platelet Count 138 k/uL (150-450); RBC 3.13 m/uL (4.30-5.90); RDW 15.8 % (11.5-15.5); WBC 5.5 k/uL (3.8-10.6)
--- NOTE | 2021-07-09 05:01 | XR ---
EXAMINATION TYPE: XR chest 1V portable DATE OF EXAM: 07/09/2021 COMPARISON: Yesterday HISTORY: Short of breath TECHNIQUE: FINDINGS: The endotracheal tube is 4 cm from the tammy. There is nasogastric tube with the tip in th e gastric fundus. Lungs are clear of infiltrate. No heart failure. Heart size is normal. There are ch est leads. IMPRESSION: No active cardiopulmonary disease. Tubing in good position. No adverse change.
[2021-07-09 05:02] LABS: ALT 39 U/L (4-49); AST 150 U/L (17-59); African American GFR (CKD) >90 (>60 ml/min/1.73 sqM); Albumin 3.7 g/dL (3.5-5.0); Alkaline Phosphatase 94 U/L (38-126); Anion Gap 7 mmol/L; Blood Urea Nitrogen 16 mg/dL (9-20); Calcium 7.2 mg/dL (8.4-10.2); Carbon Dioxide 23 mmol/L (22-30); Chloride 100 mmol/L (98-107); Glucose 147 mg/dL (74-99); Magnesium 1.9 mg/dL (1.6-2.3); Non-African American GFR(CKD) >90 (>60 ml/min/1.73 sqM); Phosphorus 5.2 mg/dL (2.5-4.5); Potassium 4.2 mmol/L (3.5-5.1); Sodium 130 mmol/L (137-145); Total Bilirubin 0.8 mg/dL (0.2-1.3); Total Protein 6.2 g/dL (6.3-8.2)
[2021-07-09] MEDS ORDERED: methylPREDNISolone SOD SUCCI 125 MG/2 ML VIAL IV SCH (06:00)
[2021-07-09] MEDS ORDERED: ENOXAPARIN 40 MG/0.4 ML SYRINGE SQ SCH (09:00)
[2021-07-09] MEDS ORDERED: PANTOPRAZOLE 40 MG/10 ML VIAL IV SCH (09:00)
[2021-07-09] MEDS: OSELTAMIVIR 75 MG CAP PO SCH ×2 (09:18→20:36)
[2021-07-09] MEDS: MAGNESIUM OXIDE 400 MG TAB PO SCH ×2 (09:18→20:36)
[2021-07-09] MEDS: PANTOPRAZOLE 40 MG/10 ML VIAL IV SCH (09:22)
--- NOTE | 2021-07-09 09:47 | P.CNPUL ---
History of Present Illness Consult date: 07/09/21 Requesting physician: Ariane Tai Reason for consult: dyspnea, cough, hypoxemia Chief complaint: Shortness of breath History of present illness: 56-year-old male patient, current smoker, with history of COPD, EtOH and marijuana use, presented to the emergency department on 07/08/2021 for evaluat ion of cough, congestion, dyspnea and fever. Patient tested positive for influenza A, and tested negative for COVID-19 and influenza B. He had a fever of 103 degrees Fahrenheit on presentation. He was tachycardic with a rate of 154, but in sinus mechanism. Chest x-ray showed no active cardiopulmonary disease. Patient was started on Tamiflu, IV steroids, and breathing treatments. However patient was starting to become agitated, and it was suspected that he was going through acute EtOH withdrawal, patient was given multiple doses of IV Ativan, to the point of unresponsiveness, and there was a concern about his airway protection and for that reason she was intubated and placed on mechanical ventilator. He was started on propofol and Versed infusion. He is awaiting a bed in the ICU, he seen in the emergency department. He is sedated and intubated, he is on assist-control mode of ventilation with a rate of 26, tidal volume 450, FiO2 100% and PEEP of 5, blood gas this morning shows pO2 of greater than 400, pCO2 of 59, and pH of 7.19. This was done on respiratory rate of 24 which was subsequently increased to 26, and FiO2 was dropped down to 40%. His chest x-ray today shows no active cardiopulmonary disease, ET tube 4 cm above the tammy. Today's blood work has been reviewed, with little, is 5.5, hemoglobin is 12.9, serum sodium is 1:30 which is improved from 127 on admiss ion, potassium is 4.2, chloride is 100, BUN is 16, creatinine 0.78. Troponin was 0.0-3, CRP was 5.9, proBNP was 250. Lactic acid was 2.3, patient was given 1, 1/2 L in fluid boluses, currently he is on 0.0 missing a rate of 80 ML per hour, lactic acid has improved and is down to 0.7. Arroyo catheter is in place, patient is producing adequate amount of clear and dilute urine. This morning his fever is controlled, and he is 97.8, blood pressure is 98/71, he is in sinus mechanism with a controlled rate at 85. He is resting comfortably, no evidence of grand mal seizures, he continues on thiamine replacement Review of Systems All systems: negative Constitutional: Denies chills, Denies fever Eyes: denies blurred vision, denies pain Ears, nose, mouth and throat: Denies headache, Denies sore throat Cardiovascular: Denies chest pain, Denies shortness of breath Respiratory: Reports cough, Reports dyspnea Gastrointestinal: Denies abdominal pain, Denies diarrhea, Denies nausea, Denies vomiting Musculoskeletal: Denies myalgias Integumentary: Denies pruritus, Denies rash Neurological: Denies numbness, Denies weakness Psychiatric: Denies anxiety, Denies depression Endocrine: Denies fatigue, Denies weight change Past Medical History Past Medical History: COPD History of Any Multi-Drug Resistant Organisms: None Reported Past Surgical History: Hernia Repair Additional Past Surgical History / Comment(s): Bilateral inguinal hernia repairs. Past Anesthesia/Blood Transfusion Reactions: No Reported Reaction Past Psychological History: No Psychological Hx Reported Smoking Status: Current every day smoker Past Alcohol Use History: Daily Past Drug Use History: Marijuana - Past Family History Mother Family Medical History: Diabetes Mellitus Additional Family Medical History / Comment(s): Mother has type II diabetes and trigeminal neuralgia Father Family Medical History: Coronary Artery Disease (CAD) Additional Family Medical History / Comment(s): Father had CABG and a mitral valve replaced. He is . Medications and Allergies Home Medications Medication Instructions Recorded Confirmed Type Unable To Assess [Unable to Assess] 07/09/21 07/09/21 History Allergies Allergy/AdvReac Type Severity Reaction Status Date / Time No Known Allergies Allergy Verified 07/08/21 22:53 Physical Exam Vitals: Vital Signs Temp Pulse Resp BP Pulse Ox 07/09/21 08:35 76 16 98/69 98 07/09/21 07:50 78 18 98/71 98 07/09/21 07:30 80 07/09/21 07:21 82 07/09/21 07:16 98 07/09/21 07:00 97.8 F 85 16 98/71 07/09/21 06:00 93 18 115/80 97 07/09/21 05:00 105 H 16 104/67 97 07/09/21 04:40 109 H 16 115/79 98 07/09/21 04:00 128 H 16 256/150 98 07/09/21 03:52 146 H 18 189/136 98 07/09/21 03:29 130 H 22 146/96 07/09/21 03:16 126 H 18 127/85 94 L 07/09/21 02:59 123 H 18 126/89 97 07/09/21 02:44 117 H 07/09/21 02:36 117 H 07/09/21 01:00 101.2 F H 115 H 20 111/69 96 07/09/21 00:25 138 H 07/09/21 00:20 140 H 07/08/21 22:48 103 F H 154 H 24 121/74 93 L Intake and Output 07/08/21 07/09/21 07/09/21 22:59 06:59 14:59 Intake Total 27.376 35.833 Balance 27.376 35.833 Intake: Intake, IV Titration 27.376 35.833 Amount Midazolam HCl 50 mg In 35.833 Sodium Chloride 0.9% 40 ml @ 10 MG/HR 10 mls/hr IV .Q5H JIMENEZ Rx#:[id number] propofoL 1,000 mg In 27.376 Empty Bag 1 bag @ 20 MCG/ KG/MIN 9.253 mls/hr IV . [id number] JIMENEZ Rx#:[id number] Other: Weight 77.111 kg GENERAL EXAM: Sedated, and intubated, 56-year-old male, comfortable in no apparent distress. HEAD: Normocephalic/atraumatic. EYES: Normal reaction of pupils, equal size. Conjunctiva pink, sclera white. NOSE: Clear with pink turbinates. THROAT: No erythema or exudates. NECK: No masses, no JVD, no thyroid enlargement, no adenopathy. CHEST: No chest wall deformity. Symmetrical expansion. LUNGS: Equal air entry with no crackles, wheeze, rhonchi or dullness. CVS: Regular rate and rhythm, normal S1 and S2, no gallops, no murmurs, no rubs ABDOMEN: Soft, nontender. No hepatosplenomegaly, normal bowel sounds, no guarding or rigidity. EXTREMITIES: No clubbing, no edema, no cyanosis, 2+ pulses and upper and lower extremities. MUSCULOSKELETAL: Muscle strength and tone normal. SPINE: No scoliosis or deformity SKIN: No rashes CENTRAL NERVOUS SYSTEM: Sedated and intubated No focal deficits, tone is normal in all 4 extremities. Results - Laboratory Findings CBC and BMP: 07/09/21 04:36 07/09/21 04:36 ABG ABG pH 7.19 (7.35-7.45) L* 07/09/21 04:31 ABG pCO2 59 mmHg (35-45) H 07/09/21 04:31 ABG pO2 >400 mmHg (83-108) H 07/09/21 04:31 ABG O2 Saturation 99.4 % (94-97) H 07/09/21 04:31 PT/INR, D-dimer PT 10.8 sec (9.0-12.0) 07/08/21 23:17 INR 1.0 (<1.2) 07/08/21 23:17 Abnormal lab findings: Abnormal Labs 07/08/21 07/08/21 07/08/21 22:56 23:17 23:17 RBC 3.39 L Hgb Hct MCV 119.4 H MCH 42.3 H RDW 15.7 H Plt Count 142 L Lymphocytes # Lymphocytes # (Manual) 0.15 L Macrocytosis Marked A ABG pH ABG pCO2 ABG pO2 ABG O2 Saturation Sodium 127 L Chloride 93 L Glucose 105 H Plasma Lactic Acid Pop Calcium Phosphorus Magnesium 0.9 L* AST 119 H C-Reactive Protein 5.9 H Total Protein Influenza Type A RNA Detected H 07/09/21 07/09/21 07/09/21 04:31 04:36 04:36 RBC 3.13 L Hgb 12.9 L Hct 37.8 L MCV 120.8 H MCH 41.2 H RDW 15.8 H Plt Count 138 L Lymphocytes # 0.4 L Lymphocytes # (Manual) Macrocytosis Marked A ABG pH 7.19 L* ABG pCO2 59 H ABG pO2 >400 H ABG O2 Saturation 99.4 H Sodium Chloride Glucose Plasma Lactic Acid Pop 2.3 H* Calcium Phosphorus Magnesium AST C-Reactive Protein Total Protein Influenza Type A RNA 07/09/21 04:36 RBC Hgb Hct MCV MCH RDW Plt Count Lymphocytes # Lymphocytes # (Manual) Macrocytosis ABG pH ABG pCO2 ABG pO2 ABG O2 Saturation Sodium 130 L Chloride Glucose 147 H Plasma Lactic Acid Pop Calcium 7.2 L Phosphorus 5.2 H Magnesium AST 150 H C-Reactive Protein Total Protein 6.2 L Influenza Type A RNA - Diagnostic Findings Chest x-ray: report reviewed, image reviewed Additional studies: EKG reviewed Assessment and Plan Plan: Assessment: #1. Acute influenza A infection #2. Acute hypercapnic respiratory failure related to benzodiazepines used to control acute alcohol withdrawal, requiring intubation and placement on mechanical ventilator on 07/08/2021 #3. Acute alcohol withdrawal, and delirium tremens #4. Mild lactic acidosis, corrected with IV fluids #5. Hypomagnesemia #6. Mild hyponatremia, likely hypovolemic, improved with IV hydration #7. COPD #8. Chronic smoker #9. EtOH abuse #10. Marijuana use Plan: Continue current vent settings Continue nebulized bronchodilators, continue DuoNeb every 4 hours Continue weaning FiO2 to keep O2 sats at or above 92 Patient is on Tamiflu, we'll discontinue the IV steroids Continue GI and DVT prophylaxis Continue 0.9 at 80, continue thiamine replacement [place] protocol Consult RD for to feeding recommendation Follow-up chest x-ray and labs tomorrow Monitor for seizure activity We'll keep intubated and sedated today We'll evaluate for readiness to do spontaneous awakening and spontaneous breathing trials tomorrow We'll follow I have personally seen and examined the patient, performed the documentation and the assessment and plan as written. Number of minutes spent on the visit: [15] Time with Patient: Greater than 30
[2021-07-09] MEDS: IPRATROPIUM-ALBUTEROL 3 ML NEB INHALATION SCH ×3 (11:01→19:52)
[2021-07-09 18:06] LABS: Glucose,Whole Blood 165 mg/dL (75-99)
[2021-07-09] MEDS: THIAMINE 100 MG TAB PO SCH (18:50)
[2021-07-09] MEDS: CHLORHEXIDINE GLUCONATE 15 ML CUP MUCOUS MEM SCH (20:36)
[2021-07-10] MEDS ORDERED: IPRATROPIUM-ALBUTEROL 3 ML NEB ONE
[2021-07-10 05:33] LABS: ALT 37 U/L (4-49); AST 97 U/L (17-59); African American GFR (CKD) >90 (>60 ml/min/1.73 sqM); Albumin 3.1 g/dL (3.5-5.0); Alkaline Phosphatase 89 U/L (38-126); Anion Gap 3 mmol/L; Blood Urea Nitrogen 14 mg/dL (9-20); Calcium 8.5 mg/dL (8.4-10.2); Carbon Dioxide 25 mmol/L (22-30); Chloride 109 mmol/L (98-107); Glucose 149 mg/dL (74-99); Magnesium 2.3 mg/dL (1.6-2.3); Non-African American GFR(CKD) >90 (>60 ml/min/1.73 sqM); Phosphorus 3.3 mg/dL (2.5-4.5); Potassium 3.6 mmol/L (3.5-5.1); Sodium 137 mmol/L (137-145); Total Bilirubin 0.4 mg/dL (0.2-1.3); Total Protein 5.5 g/dL (6.3-8.2)
[2021-07-10] MEDS: IPRATROPIUM-ALBUTEROL 3 ML NEB INHALATION SCH ×6 (05:46→23:21)
[2021-07-10 05:58] LABS: ABG Base Excess -0.8 mmol/L; ABG HCO3 25 mmol/L (21-25); ABG Oxygen Saturation 96.8 % (94-97); ABG PCO2 44 mmHg (35-45); ABG PH 7.36 (7.35-7.45); ABG PO2 84 mmHg (83-108); ABG TCO2 26 mmol/L (19-24); Allen Test Performed? Yes
[2021-07-10 06:09] LABS: Basophils # (A) 0.1 k/uL (0-0.2); Basophils % (A) 1 %; Eosinophils % (A) 0 %; HCT 35.6 % (39.0-53.0); Lymphocytes # (A) 0.3 k/uL (1.0-4.8); Lymphocytes % (A) 4 %; MCH 41.3 pg (25.0-35.0); MCHC 33.8 g/dL (31.0-37.0); MCV 122.2 fL (80.0-100.0); Macrocytosis Marked; Mean Platelet Volume 9.3; Monocytes # (A) 0.2 k/uL (0-1.0); Monocytes % (A) 3 %; Neutrophils % (A) 91 %; Platelet Count 143 k/uL (150-450); RBC 2.91 m/uL (4.30-5.90); WBC 7.7 k/uL (3.8-10.6)
[2021-07-10] MEDS: POTASSIUM CHLORIDE 10 MEQ in WATER FOR INJECTION 1 100ML.BAG IVPB SCH ×2 (06:30→08:11)
[2021-07-10] MEDS: DEXTROSE 5%-0.45% NACL 1,000 ML IV SCH ×2 (07:00→15:09)
--- NOTE | 2021-07-10 07:17 | XR ---
EXAMINATION TYPE: XR chest 1V DATE OF EXAM: 07/10/2021 COMPARISON: 07/09/2021 HISTORY: SOB, Follow Up FINDINGS: Indwelling tubes and catheters are unchanged. No focal infiltrates seen. Stable appearance of the cardio-mediastinal structures at this time. IMPRESSION: 1. Stable portable chest. Clinical correlation and follow up until resolution is recommended.
[2021-07-10] MEDS: THIAMINE 100 MG TAB PO SCH ×3 (07:24→17:32)
[2021-07-10] MEDS: MORPHINE SULFATE 4 MG/ML SYRINGE IV PRN ×2 (08:08→10:41)
[2021-07-10] MEDS: CHLORHEXIDINE GLUCONATE 15 ML CUP MUCOUS MEM SCH (08:12)
[2021-07-10] MEDS: PANTOPRAZOLE 40 MG/10 ML VIAL IV SCH (08:12)
[2021-07-10] MEDS: OSELTAMIVIR 75 MG CAP PO SCH ×2 (08:52→21:48)
[2021-07-10] MEDS: MAGNESIUM OXIDE 400 MG TAB PO SCH ×2 (08:53→21:48)
--- NOTE | 2021-07-10 10:15 | P.PN ---
Subjective Progress Note Date: 07/10/21 Principal diagnosis: Alcohol withdrawal syndrome. 56-year-old male patient, current smoker, with history of COPD, EtOH and marijuana use, presented to the emergency department on 07/08/2021 for evaluation of cough, congestion, dyspnea and fever. Patient tested positive for influenza A, and tested negative for COVID-19 and influenza B. He had a fever of 103 degrees Fahrenheit on presentation. He was tachycardic with a rate of 154, but in sinus mechanism. Chest x-ray showed no active cardiopulmonary disease. Patient was started on Tamiflu, IV steroids, and breathing treatments. However patient was starting to become agitated, and it was suspected that he was going through acute EtOH withdrawal, patient was given multiple doses of IV Ativan, to the point of unresponsiveness, and there was a concern about his airway protection and for that reason she was intubated and placed on mechanical ventilator. He was started on propofol and Versed infusion. He is awaiting a bed in the ICU, he seen in the emergency department. He is sedated and intubated, he is on assist-control mode of ventilation with a rate of 26, tidal volume 450, FiO2 100% and PEEP of 5, blood gas this morning shows pO2 of greater than 400, pCO2 of 59, and pH of 7.19. This was done on respiratory rate of 24 which was subsequently increased to 26, and FiO2 was dropped down to 40%. His chest x-ray today shows no active cardiopulmonary disease, ET tube 4 cm above the tammy. Today's blood work has been reviewed, with little, is 5.5, hemoglobin is 12.9, serum sodium is 1:30 which is improved from 127 on admission, potassium is 4.2, chloride is 100, BUN is 16, creatinine 0.78. Troponin was 0.0-3, CRP was 5.9, proBNP was 250. Lactic acid was 2.3, patient was given 1, 1/2 L in fluid boluses, currently he is on 0.0 missing a rate of 80 ML per hour, lactic acid has improved and is down to 0.7. Arroyo catheter is in place, patient is producing adequate amount of clear and dilute urine. This morning his fever is controlled, and he is 97.8, blood pressure is 98/71, he is in sinus mechanism with a controlled rate at 85. He is resting comfortably, no evidence of grand mal seizures, he continues on thiamine replacement Progress note dated 07/10/2021. This is a 56-year-old male, who is seen today in room 267, and the intensive care unit. Yesterday, he was seen in the emergency room. He has a history of COPD, alcohol and marijuana use, and chronic tobacco use. The patient was seen in the emergency room for alcohol withdrawal syndrome, and became very agitated, and was started on Ativan, and required intubation and mechanical ventilation for airway protection. He was also found to be positive for influenza A, and was started on Tamiflu. The patient remains in the intensive care unit on the ventilator. Vent settings include a volume assist control, rate 26, tidal volume 450, FiO2 40%, and PEEP of 5. Blood gases show pO2 of 84, pCO2 44, and a pH is 7.36. The patient's on D5.45 at 80 mL an hour, propofol 50 mcg/kg/m, and no tube feedings. Today, the patient will have a daily interruption of sedation, and a spontaneous breathing trial, on pressure support of 5, and CPAP of 5. I believe the patient can likely be extubated. White count 7.7, hemoglobin 12, hematocrit 35.6, platelet count 243,000. Sodium 137, potassium 3.6, chlorides 109, CO2 25, BUN 14, creatinine 0.6. Albumin 3.1. Chest x-ray, and my opinion, is normal. Objective - Vital Signs Vital signs: Vital Signs Temp 97.7 F 07/10/21 08:00 Pulse 94 07/10/21 10:00 Resp 26 H 07/10/21 10:00 BP 112/77 07/10/21 10:00 Pulse Ox 98 07/10/21 10:00 Intake & Output 07/09/21 07/10/21 07/10/21 18:59 06:59 18:59 Intake Total 2898.189 8183.169 400 Output Total 5625 1230 155 Balance -4029.158 -211.831 245 Weight 77.111 kg 71.5 kg Intake: IV 1340 880 240 Dextrose 5%-0.45% NaCl 1, 1240 880 240 000 ml @ 80 mls/hr IV . [id number] COUNTS INCLUDE 234 BEDS AT THE [facility] Rx#:[id number] propofoL 1,000 mg In 100 Empty Bag 1 bag @ 20 MCG/ KG/MIN 9.253 mls/hr IV . [id number] [facility] Rx#:[id number] Intake, IV Titration 255.842 138.169 100 Amount Midazolam HCl 50 mg In 35.833 Sodium Chloride 0.9% 40 ml @ 10 MG/HR 10 mls/hr IV .Q5H [facility] Rx#:[id number] Potassium Chloride 10 meq 100 In Water For Injection 1 100ml.bag @ 100 mls/hr IVPB Q1H [facility] Rx#: [id number] propofoL 1,000 mg In 220.009 138.169 Empty Bag 1 bag @ 20 MCG/ KG/MIN 9.253 mls/hr IV . [id number] [facility] Rx#:[id number] Other 60 Output: Gastric Drainage 400 Urine 5625 830 155 Other: Voiding Method Indwelling Catheter Indwelling Catheter - Exam No acute distress, sedated, with an orally placed endotracheal tube and NG tube. HEENT examination is grossly unremarkable. Neck supple. Full range of motion. No adenopathy thyromegaly or neck vein distention. Cardiovascular examination reveals regular rhythm rate. S1-S2 normal. No S3 or S4. No discernible murmur noted. Heart rate 94 bpm. Lungs reveal mild scattered rhonchi. No wheezes. No crackles. Breath sounds equal bilaterally. Saturations are 98%. Abdomen soft bowel sounds are heard. No masses or tenderness. Extremities are intact. No cyanosis clubbing or edema. Skin is without rash or lesion. Neurologic examination could not be properly assessed. - Labs CBC & Chem 7: 07/10/21 03:50 07/10/21 03:50 Labs: Abnormal Lab Results - Last 24 Hours (Table) 07/09/21 07/10/21 07/10/21 Range/Units 18:03 03:50 03:50 RBC 2.91 L (4.30-5.90) m/uL Hgb 12.0 L (13.0-17.5) gm/dL Hct 35.6 L (39.0-53.0) % MCV 122.2 H (80.0-100.0) fL MCH 41.3 H (25.0-35.0) pg Plt Count 143 L (150-450) k/uL Lymphocytes # 0.3 L (1.0-4.8) k/uL Macrocytosis Marked A ABG Total CO2 (19-24) mmol/L Chloride 109 H (98-107) mmol/L Creatinine 0.60 L (0.66-1.25) mg/dL Glucose 149 H (74-99) mg/dL POC Glucose (mg/dL) 165 H (75-99) mg/dL AST 97 H (17-59) U/L Total Protein 5.5 L (6.3-8.2) g/dL Albumin 3.1 L (3.5-5.0) g/dL 07/10/21 Range/Units 05:56 RBC (4.30-5.90) m/uL Hgb (13.0-17.5) gm/dL Hct (39.0-53.0) % MCV (80.0-100.0) fL MCH (25.0-35.0) pg Plt Count (150-450) k/uL Lymphocytes # (1.0-4.8) k/uL Macrocytosis ABG Total CO2 26 H (19-24) mmol/L Chloride (98-107) mmol/L Creatinine (0.66-1.25) mg/dL Glucose (74-99) mg/dL POC Glucose (mg/dL) (75-99) mg/dL AST (17-59) U/L Total Protein (6.3-8.2) g/dL Albumin (3.5-5.0) g/dL Microbiology - Last 24 Hours (Table) 07/09/21 04:25 Gram Stain - Preliminary Sputum Sputum Culture - Preliminary 07/08/21 23:17 Blood Culture - Preliminary Blood No Growth after 24 hours Assessment and Plan Assessment: Acute influenza A infection. Hypercapnic respiratory failure secondary to excess Ativan use, for alcohol withdrawal, requiring intubation and mechanical ventilation on 07/08/2021. Acute alcohol withdrawal syndrome, and delirium tremens. Mild lactic acidosis. Hypomagnesemia. Mild hyponatremia. COPD from chronic tobacco use. Chronic alcohol abuse. History of marijuana use. Plan: Plan dated 07/10/2021. The patient will have a daily interruption of sedation today, and hopefully a spontaneous breathing trial, on pressure support of 5 and CPAP of 5. The patient's labs, x-rays, and medications all reviewed. Blood gases are excellent. The patient remains on propofol at 50 mcg/kg/m. Tube feedings have not yet been started. If he is not extubated today, we will have to be started today. The patient will continue on Ativan for potential alcohol withdrawal if necessary. The patient was started on Tamiflu, 75 mg twice a day for a total of 5 days. Additional recommendations and suggestions are forthcoming. Prognosis is guarded. Time with Patient: Greater than 30
[2021-07-10] MEDS: LORazepam 2 MG/ML INJ IV PRN (11:20)
[2021-07-10] MEDS: DEXMEDETOMIDINE/0.9% NACL(PMX) 400 MCG in EMPTY BAG 1 BAG IV SCH (12:05)
--- NOTE | 2021-07-10 15:07 | P.PN ---
Subjective Progress Note Date: 07/10/21 Pt was successfully extubated to [facility]NC. Still groggy, encephalopathic. Gen: awake, alert HEENT: normocephalic, atraumatic, good hearing acuity, moist mucous membranes Resp: good air exchange, breathing comfortably with no accessory muscle use CVS: good distal perfusion x 4, GI: soft, NTTP, ND : no SPT, no CVAT, odom catheter is present MSK: no pitting edema, no clubbing Neuro: non-focal, moving all extremities Psych: cooperative, euthymic mood Assessment/plan: Sepsis secondary to influenza infection -Continue with Tamiflu -IVFs -F/u cultures Alcohol withdrawal syndrome Delirium tremens -CIWA protocol+ Ativan when necessary -Thiamine, folate, multivitamin Hypomagnesemia -Replace and monitor Acute hypoxic respiratory failure with baseline COPD -Continue with Solu-Medrol DVT prophylaxis -Heparin subcu The patient is admitted with an anticipated greater than 2 midnight stay for evaluation of sepsis, influenza CODE STATUS: Full Code Anticipated discharge date: 3-[address]: Home Objective - Vital Signs Vital signs: Vital Signs Temp 99.6 F 07/10/21 12:00 Pulse 107 H 07/10/21 14:00 Resp 31 H 07/10/21 14:00 BP 106/81 07/10/21 14:00 Pulse Ox 94 L 07/10/21 14:00 Intake & Output 07/09/21 07/10/21 07/10/21 18:59 06:59 18:59 Intake Total 9869.062 2734.169 752.773 Output Total 5625 1230 620 Balance -4029.158 -211.831 132.773 Weight 77.111 kg 71.5 kg 71.5 kg Intake: IV 1340 880 560 Dextrose 5%-0.45% NaCl 1, 1240 880 560 000 ml @ 80 mls/hr IV . [id number] [facility] Rx#:[id number] propofoL 1,000 mg In 100 Empty Bag 1 bag @ 20 MCG/ KG/MIN 9.253 mls/hr IV . [id number] [facility] Rx#:[id number] Intake, IV Titration 255.842 138.169 132.773 Amount Dexmedetomidine/0.9% NaCl 10.487 (Pmx) 400 mcg In Empty Bag 1 bag @ 0.4 MCG/KG/HR 7.15 mls/hr IV .Q14H [facility] Rx#:[id number] Midazolam HCl 50 mg In 35.833 Sodium Chloride 0.9% 40 ml @ 10 MG/HR 10 mls/hr IV .Q5H [facility] Rx#:[id number] Potassium Chloride 10 meq 100 In Water For Injection 1 100ml.bag @ 100 mls/hr IVPB Q1H [facility] Rx#: [id number] propofoL 1,000 mg In 220.009 138.169 22.286 Empty Bag 1 bag @ 20 MCG/ KG/MIN 9.253 mls/hr IV . [id number] [facility] Rx#:[id number] Other 60 Output: Gastric Drainage 400 300 Urine 5625 830 320 Other: Voiding Method Indwelling Catheter Indwelling Catheter Indwelling Catheter - Labs CBC & Chem 7: 07/10/21 03:50 07/10/21 03:50 Labs: Abnormal Lab Results - Last 24 Hours (Table) 07/09/21 07/10/21 07/10/21 Range/Units 18:03 03:50 03:50 RBC 2.91 L (4.30-5.90) m/uL Hgb 12.0 L (13.0-17.5) gm/dL Hct 35.6 L (39.0-53.0) % MCV 122.2 H (80.0-100.0) fL MCH 41.3 H (25.0-35.0) pg Plt Count 143 L (150-450) k/uL Lymphocytes # 0.3 L (1.0-4.8) k/uL Macrocytosis Marked A ABG Total CO2 (19-24) mmol/L Chloride 109 H (98-107) mmol/L Creatinine 0.60 L (0.66-1.25) mg/dL Glucose 149 H (74-99) mg/dL POC Glucose (mg/dL) 165 H (75-99) mg/dL AST 97 H (17-59) U/L Total Protein 5.5 L (6.3-8.2) g/dL Albumin 3.1 L (3.5-5.0) g/dL 07/10/21 Range/Units 05:56 RBC (4.30-5.90) m/uL Hgb (13.0-17.5) gm/dL Hct (39.0-53.0) % MCV (80.0-100.0) fL MCH (25.0-35.0) pg Plt Count (150-450) k/uL Lymphocytes # (1.0-4.8) k/uL Macrocytosis ABG Total CO2 26 H (19-24) mmol/L Chloride (98-107) mmol/L Creatinine (0.66-1.25) mg/dL Glucose (74-99) mg/dL POC Glucose (mg/dL) (75-99) mg/dL AST (17-59) U/L Total Protein (6.3-8.2) g/dL Albumin (3.5-5.0) g/dL Microbiology - Last 24 Hours (Table) 07/09/21 04:25 Gram Stain - Preliminary Sputum Sputum Culture - Preliminary Streptococcus pneumoniae 07/08/21 23:17 Blood Culture - Preliminary Blood No Growth after 24 hours
[2021-07-10] MEDS ORDERED: ACETAMINOPHEN IV (For NPO) 1,000 MG in EMPTY BAG 1 BAG IVPB PRN (16:26)
[2021-07-11] MEDS: DEXTROSE 5%-0.45% NACL 1,000 ML IV SCH ×2 (01:22→16:06)
[2021-07-11] MEDS: DEXMEDETOMIDINE/0.9% NACL(PMX) 400 MCG in EMPTY BAG 1 BAG IV SCH ×4 (01:22→18:57)
[2021-07-11] MEDS: LORazepam 2 MG/ML INJ IV PRN ×4 (03:04→21:26)
[2021-07-11] MEDS: IPRATROPIUM-ALBUTEROL 3 ML NEB INHALATION SCH ×5 (03:27→20:00)
[2021-07-11] MEDS ORDERED: HALOPERIDOL LACTATE 5 MG/ML 1 ML VIAL IM ONE (03:31)
[2021-07-11] MEDS ORDERED: QUEtiapine 100 MG TAB PO STA (03:32)
[2021-07-11 07:54] LABS: HCT 34.8 % (39.0-53.0); HGB 11.8 gm/dL (13.0-17.5); MCHC 33.8 g/dL (31.0-37.0); MCV 121.4 fL (80.0-100.0); Macrocytosis Marked; Mean Platelet Volume 8.6; Platelet Count 137 k/uL (150-450); RBC 2.87 m/uL (4.30-5.90); WBC 3.6 k/uL (3.8-10.6)
[2021-07-11] MEDS: PANTOPRAZOLE 40 MG/10 ML VIAL IV SCH (08:10)
--- NOTE | 2021-07-11 08:27 | XR ---
EXAMINATION TYPE: XR chest 1V portable DATE OF EXAM: 07/11/2021 Comparison: 07/10/2021 Clinical History: 56-year-old male influenza Findings: Old healed fracture deformity right mid clavicular shaft. Heart borderline in size. Patchy interstiti al opacities bilaterally have increased in the interval. No pleural effusion. NG tube removed in the interval. Impression: Slight interval increasing mild patchy interstitial infiltrates. Correlate for atypical pneumonias.
[2021-07-11 08:49] LABS: African American GFR (CKD) >90 (>60 ml/min/1.73 sqM); Anion Gap 3 mmol/L; Blood Urea Nitrogen 13 mg/dL (9-20); Calcium 8.4 mg/dL (8.4-10.2); Carbon Dioxide 28 mmol/L (22-30); Chloride 106 mmol/L (98-107); Glucose 107 mg/dL (74-99); Non-African American GFR(CKD) >90 (>60 ml/min/1.73 sqM); Potassium 4.2 mmol/L (3.5-5.1); Sodium 137 mmol/L (137-145)
[2021-07-11] MEDS ORDERED: HALOPERIDOL LACTATE 5 MG/ML 1 ML VIAL IM PRN (09:29)
--- NOTE | 2021-07-11 10:39 | P.PN ---
Subjective Progress Note Date: 07/11/21 Principal diagnosis: Alcohol withdrawal syndrome. 56-year-old male patient, current smoker, with history of COPD, EtOH and marijuana use, presented to the emergency department on 07/08/2021 for evaluation of cough, congestion, dyspnea and fever. Patient tested positive for influenza A, and tested negative for COVID-19 and influenza B. He had a fever of 103 degrees Fahrenheit on presentation. He was tachycardic with a rate of 154, but in sinus mechanism. Chest x-ray showed no active cardiopulmonary disease. Patient was started on Tamiflu, IV steroids, and breathing treatments. However patient was starting to become agitated, and it was suspected that he was going through acute EtOH withdrawal, patient was given multiple doses of IV Ativan, to the point of unresponsiveness, and there was a concern about his airway protection and for that reason she was intubated and placed on mechanical ventilator. He was started on propofol and Versed infusion. He is awaiting a bed in the ICU, he seen in the emergency department. He is sedated and intubated, he is on assist-control mode of ventilation with a rate of 26, tidal volume 450, FiO2 100% and PEEP of 5, blood gas this morning shows pO2 of greater than 400, pCO2 of 59, and pH of 7.19. This was done on respiratory rate of 24 which was subsequently increased to 26, and FiO2 was dropped down to 40%. His chest x-ray today shows no active cardiopulmonary disease, ET tube 4 cm above the tammy. Today's blood work has been reviewed, with little, is 5.5, hemoglobin is 12.9, serum sodium is 1:30 which is improved from 127 on admission, potassium is 4.2, chloride is 100, BUN is 16, creatinine 0.78. Troponin was 0.0-3, CRP was 5.9, proBNP was 250. Lactic acid was 2.3, patient was given 1, 1/2 L in fluid boluses, currently he is on 0.0 missing a rate of 80 ML per hour, lactic acid has improved and is down to 0.7. Arroyo catheter is in place, patient is producing adequate amount of clear and dilute urine. This morning his fever is controlled, and he is 97.8, blood pressure is 98/71, he is in sinus mechanism with a controlled rate at 85. He is resting comfortably, no evidence of grand mal seizures, he continues on thiamine replacement Progress note dated 07/10/2021. This is a 56-year-old male, who is seen today in room 267, and the intensive care unit. Yesterday, he was seen in the emergency room. He has a history of COPD, alcohol and marijuana use, and chronic tobacco use. The patient was seen in the emergency room for alcohol withdrawal syndrome, and became very agitated, and was started on Ativan, and required intubation and mechanical ventilation for airway protection. He was also found to be positive for influenza A, and was started on Tamiflu. The patient remains in the intensive care unit on the ventilator. Vent settings include a volume assist control, rate 26, tidal volume 450, FiO2 40%, and PEEP of 5. Blood gases show pO2 of 84, pCO2 44, and a pH is 7.36. The patient's on D5.45 at 80 mL an hour, propofol 50 mcg/kg/m, and no tube feedings. Today, the patient will have a daily interruption of sedation, and a spontaneous breathing trial, on pressure support of 5, and CPAP of 5. I believe the patient can likely be extubated. White count 7.7, hemoglobin 12, hematocrit 35.6, platelet count 243,000. Sodium 137, potassium 3.6, chlorides 109, CO2 25, BUN 14, creatinine 0.6. Albumin 3.1. Chest x-ray, and my opinion, is normal. Progress note dated 07/11/2021. This is a 56-year-old male, who was extubated yesterday, July 10. Post extubation, the patient was quite agitated, and required different medications including IM Haldol, oral Seroquel, and IV Ativan. Currently, the patient is on dexmedetomidine at 1.2 mcg/kg/h. He's on 4 L nasal cannula. He is getting dextrose with half-normal saline at 80 mL an hour. He is much less agitated today, and sleeping currently. White count 3.6, hemoglobin 11.8, hematocrit 34.8, platelet count 137,000. Blood gases yesterday have been reviewed. Sodium 137, potassium 4.2, chlorides 106, CO2 28, BUN 13, creatinine 0.66. Anion gap is normal. Chest x-ray shows some bilateral patchy infiltrates. Objective - Vital Signs Vital signs: Vital Signs Temp 99.5 F 07/11/21 08:00 Pulse 100 07/11/21 08:25 Resp 25 H 07/11/21 08:00 BP 133/87 07/11/21 08:00 Pulse Ox 97 07/11/21 08:00 Intake & Output 07/10/21 07/11/21 07/11/21 18:59 06:59 18:59 Intake Total 6068.116 0128.121 252.543 Output Total 910 460 135 Balance 352.248 733.121 117.543 Weight 71.5 kg 70 kg Intake: IV 960 1040 160 Dextrose 5%-0.45% NaCl 1, 960 1040 160 000 ml @ 80 mls/hr IV . [id number] [facility] Rx#:[id number] Intake, IV Titration 242.248 153.121 92.543 Amount ACETAMINOPHEN IV (For NPO 100 ) 1,000 mg In Empty Bag 1 bag @ 400 mls/hr IVPB Q6HR PRN Rx#:[id number] Dexmedetomidine/0.9% NaCl 19.962 153.121 42.543 (Pmx) 400 mcg In Empty Bag 1 bag @ 0.4 MCG/KG/HR 7.15 mls/hr IV .Q14H [facility] Rx#:[id number] Potassium Chloride 10 meq 100 In Water For Injection 1 100ml.bag @ 100 mls/hr IVPB Q1H [facility] Rx#: [id number] cefTRIAXone 1 gm In 50 Sodium Chloride 0.9% 50 ml @ 100 mls/hr IVPB Q24HR [facility] Rx#:[id number] propofoL 1,000 mg In 22.286 Empty Bag 1 bag @ 20 MCG/ KG/MIN 9.253 mls/hr IV . [id number] [facility] Rx#:[id number] Other 60 Output: Gastric Drainage 300 Urine 610 460 135 Other: Voiding Method Indwelling Catheter Indwelling Catheter Indwelling Catheter - Exam No acute distress, sleeping, and on nasal cannula at 4 L. HEENT examination is grossly unremarkable. Neck supple. Full range of motion. No adenopathy thyromegaly or neck vein distention. Cardiovascular examination reveals regular rhythm rate. S1-S2 normal. No S3 or S4. No discernible murmur noted. Heart rate 100 bpm. Lungs reveal mild scattered rhonchi. No wheezes. No crackles. Breath sounds equal bilaterally. Saturations are 98%. Abdomen soft bowel sounds are heard. No masses or tenderness. Extremities are intact. No cyanosis clubbing or edema. Skin is without rash or lesion. Neurologic examination is currently stable. - Labs CBC & Chem 7: 07/11/21 07:25 07/11/21 07:25 Labs: Abnormal Lab Results - Last 24 Hours (Table) 07/11/21 07/11/21 Range/Units 07:25 07:25 WBC 3.6 L (3.8-10.6) k/uL RBC 2.87 L (4.30-5.90) m/uL Hgb 11.8 L (13.0-17.5) gm/dL Hct 34.8 L (39.0-53.0) % MCV 121.4 H (80.0-100.0) fL MCH 41.0 H (25.0-35.0) pg Plt Count 137 L (150-450) k/uL Macrocytosis Marked A Glucose 107 H (74-99) mg/dL Microbiology - Last 24 Hours (Table) 07/08/21 23:17 Blood Culture - Preliminary Blood No Growth after 48 hours 07/09/21 04:25 Gram Stain - Preliminary Sputum Sputum Culture - Preliminary Streptococcus pneumoniae Assessment and Plan Assessment: Acute influenza A infection. Hypercapnic respiratory failure secondary to excess Ativan use, for alcohol withdrawal, requiring intubation and mechanical ventilation on 07/08/2021, and successful extubation on 07/10/2021. Acute alcohol withdrawal syndrome, and delirium tremens. Mild lactic acidosis. Hypomagnesemia. Mild hyponatremia. COPD from chronic tobacco use. Chronic alcohol abuse. History of marijuana use. Plan: Plan dated 07/10/2021. The patient will have a daily interruption of sedation today, and hopefully a spontaneous breathing trial, on pressure support of 5 and CPAP of 5. The patient's labs, x-rays, and medications all reviewed. Blood gases are excellent. The patient remains on propofol at 50 mcg/kg/m. Tube feedings have not yet been started. If he is not extubated today, we will have to be started today. The patient will continue on Ativan for potential alcohol withdrawal if necessary. The patient was started on Tamiflu, 75 mg twice a day for a total of 5 days. Additional recommendations and suggestions are forthcoming. Prognosis is guarded. Plan dated 07/11/2021. The patient was extubated yesterday. Last night, the patient gave the nurses a very difficult time, with significant agitation, and confusion. The patient received IV Ativan, IM Haldol, and oral Seroquel. The patient remains on dexmedetomidine. Additional recommendations and suggestions are forthcoming. The patient remains on Tamiflu for influenza a infection. Labs, x-rays, and medications are reviewed. Prognosis is guarded. We will continue to see the patient and make recommendations where appropriate. Time with Patient: Greater than 30
[2021-07-11] MEDS: LEVOFLOXACIN 750MG-D5W PMX 750 MG in DEXTROSE/WATER 1 150ML.BAG IVPB SCH (13:13)
--- NOTE | 2021-07-11 13:49 | P.PN ---
Subjective Progress Note Date: 07/11/21 Pt still groggy, encephalopathic. Gen: awake, alert HEENT: normocephalic, atraumatic, good hearing acuity, moist mucous membranes Resp: good air exchange, breathing comfortably with no accessory muscle use CVS: good distal perfusion x 4, GI: soft, NTTP, ND : no SPT, no CVAT, odom catheter is present MSK: no pitting edema, no clubbing Neuro: non-focal, moving all extremities Psych: cooperative, euthymic mood Assessment/plan: Sepsis secondary to influenza infection -Continue with Tamiflu -IVFs -F/u cultures Alcohol withdrawal syndrome Delirium tremens -CIWA protocol+ Ativan when necessary -Thiamine, folate, multivitamin Hypomagnesemia -Replace and monitor Acute hypoxic respiratory failure with baseline COPD -Continue with Solu-Medrol DVT prophylaxis -Heparin subcu The patient is admitted with an anticipated greater than 2 midnight stay for evaluation of sepsis, influenza CODE STATUS: Full Code Anticipated discharge date: 3-[address]: Home Objective - Vital Signs Vital signs: Vital Signs Temp 99 F 07/11/21 12:00 Pulse 92 07/11/21 13:00 Resp 23 07/11/21 13:00 BP 124/86 07/11/21 13:00 Pulse Ox 95 07/11/21 13:00 Intake & Output 07/10/21 07/11/21 07/11/21 18:59 06:59 18:59 Intake Total 5896.510 3290.121 820.248 Output Total 910 460 320 Balance 352.248 733.121 500.248 Weight 71.5 kg 70 kg Intake: IV 960 1040 480 Dextrose 5%-0.45% NaCl 1, 960 1040 480 000 ml @ 80 mls/hr IV . [id number] [facility] Rx#:[id number] Intake, IV Titration 242.248 153.121 340.248 Amount ACETAMINOPHEN IV (For NPO 100 ) 1,000 mg In Empty Bag 1 bag @ 400 mls/hr IVPB Q6HR PRN Rx#:[id number] Dexmedetomidine/0.9% NaCl 19.962 153.121 140.248 (Pmx) 400 mcg In Empty Bag 1 bag @ 0.4 MCG/KG/HR 7.15 mls/hr IV .Q14H [facility] Rx#:[id number] Levofloxacin 750Mg-D5w 150 Pmx 750 mg In Dextrose/ Water 1 150ml.bag @ 100 mls/hr IVPB Q24H [facility] Rx#: [id number] Potassium Chloride 10 meq 100 In Water For Injection 1 100ml.bag @ 100 mls/hr IVPB Q1H [facility] Rx#: [id number] cefTRIAXone 1 gm In 50 Sodium Chloride 0.9% 50 ml @ 100 mls/hr IVPB Q24HR [facility] Rx#:[id number] propofoL 1,000 mg In 22.286 Empty Bag 1 bag @ 20 MCG/ KG/MIN 9.253 mls/hr IV . [id number] [facility] Rx#:[id number] Other 60 Output: Gastric Drainage 300 Urine 610 460 320 Other: Voiding Method Indwelling Catheter Indwelling Catheter Indwelling Catheter - Labs CBC & Chem 7: 07/11/21 07:25 07/11/21 07:25 Labs: Abnormal Lab Results - Last 24 Hours (Table) 07/11/21 07/11/21 Range/Units 07:25 07:25 WBC 3.6 L (3.8-10.6) k/uL RBC 2.87 L (4.30-5.90) m/uL Hgb 11.8 L (13.0-17.5) gm/dL Hct 34.8 L (39.0-53.0) % MCV 121.4 H (80.0-100.0) fL MCH 41.0 H (25.0-35.0) pg Plt Count 137 L (150-450) k/uL Macrocytosis Marked A Glucose 107 H (74-99) mg/dL Microbiology - Last 24 Hours (Table) 07/09/21 04:25 Gram Stain - Final Sputum Sputum Culture - Final Streptococcus pneumoniae 07/08/21 23:17 Blood Culture - Preliminary Blood No Growth after 48 hours
[2021-07-11] MEDS: THIAMINE 100 MG TAB PO SCH ×2 (14:10→18:17)
[2021-07-11] MEDS: QUEtiapine 50 MG TAB PO SCH ×4 (14:10→20:51)
[2021-07-11] MEDS: OSELTAMIVIR 75 MG CAP PO SCH ×3 (14:10→20:50)
[2021-07-11] MEDS: MAGNESIUM OXIDE 400 MG TAB PO SCH ×2 (14:10→20:53)
[2021-07-11] MEDS: HALOPERIDOL LACTATE 5 MG/ML 1 ML VIAL IM PRN (16:06)
[2021-07-11] MEDS: MORPHINE SULFATE 4 MG/ML SYRINGE IV PRN (16:23)
[2021-07-12] MEDS: LORazepam 2 MG/ML INJ IV PRN ×10 (00:27→23:13)
[2021-07-12] MEDS: IPRATROPIUM-ALBUTEROL 3 ML NEB INHALATION SCH ×7 (00:49→23:26)
[2021-07-12] MEDS: DEXTROSE 5%-0.45% NACL 1,000 ML IV SCH ×2 (01:31→18:16)
[2021-07-12] MEDS: HALOPERIDOL LACTATE 5 MG/ML 1 ML VIAL IM PRN ×2 (02:12→22:08)
[2021-07-12] MEDS: DEXMEDETOMIDINE/0.9% NACL(PMX) 400 MCG in EMPTY BAG 1 BAG IV SCH ×5 (02:15→20:46)
[2021-07-12] MEDS ORDERED: cloNIDine HCL 0.1 MG TAB PO PRN (05:06)
[2021-07-12 07:44] LABS: African American GFR (CKD) >90 (>60 ml/min/1.73 sqM); Anion Gap 7 mmol/L; Blood Urea Nitrogen 12 mg/dL (9-20); Calcium 8.4 mg/dL (8.4-10.2); Carbon Dioxide 27 mmol/L (22-30); Chloride 104 mmol/L (98-107); Glucose 103 mg/dL (74-99); Magnesium 1.7 mg/dL (1.6-2.3); Non-African American GFR(CKD) >90 (>60 ml/min/1.73 sqM); Potassium 3.7 mmol/L (3.5-5.1); Sodium 138 mmol/L (137-145)
[2021-07-12] MEDS ORDERED: Magnesium Replacement Protocol 1 EACH MISC MISCELLANE PRN (07:54)
[2021-07-12] MEDS: CLEVIDIPINE BUTYRATE 25 MG in EMPTY BAG 1 BAG IV SCH ×3 (09:44→21:45)
[2021-07-12] MEDS: MAGNESIUM OXIDE 400 MG TAB PO SCH (09:58)
[2021-07-12] MEDS: QUEtiapine 50 MG TAB PO SCH (09:58)
[2021-07-12] MEDS: THIAMINE 100 MG TAB PO SCH (09:58)
[2021-07-12] MEDS: OSELTAMIVIR 75 MG CAP PO SCH (09:58)
[2021-07-12] MEDS: MAGNESIUM SULFATE-D5W PMX 1 GM in DEXTROSE/WATER 1 100ML.BAG IVPB SCH ×2 (10:10→13:16)
[2021-07-12] MEDS: PANTOPRAZOLE 40 MG/10 ML VIAL IV SCH (10:11)
--- NOTE | 2021-07-12 10:56 | P.PN ---
Subjective Progress Note Date: 07/05/21 Principal diagnosis: Alcohol withdrawal syndrome. 56-year-old male patient, current smoker, with history of COPD, EtOH and marijuana use, presented to the emergency department on 07/08/2021 for evaluation of cough, congestion, dyspnea and fever. Patient tested positive for influenza A, and tested negative for COVID-19 and influenza B. He had a fever of 103 degrees Fahrenheit on presentation. He was tachycardic with a rate of 154, but in sinus mechanism. Chest x-ray showed no active cardiopulmonary disease. Patient was started on Tamiflu, IV steroids, and breathing treatments. However patient was starting to become agitated, and it was suspected that he was going through acute EtOH withdrawal, patient was given multiple doses of IV Ativan, to the point of unresponsiveness, and there was a concern about his airway protection and for that reason she was intubated and placed on mechanical ventilator. He was started on propofol and Versed infusion. He is awaiting a bed in the ICU, he seen in the emergency department. He is sedated and intubated, he is on assist-control mode of ventilation with a rate of 26, tidal volume 450, FiO2 100% and PEEP of 5, blood gas this morning shows pO2 of greater than 400, pCO2 of 59, and pH of 7.19. This was done on respiratory rate of 24 which was subsequently increased to 26, and FiO2 was dropped down to 40%. His chest x-ray today shows no active cardiopulmonary disease, ET tube 4 cm above the tammy. Today's blood work has been reviewed, with little, is 5.5, hemoglobin is 12.9, serum sodium is 1:30 which is improved from 127 on admission, potassium is 4.2, chloride is 100, BUN is 16, creatinine 0.78. Troponin was 0.0-3, CRP was 5.9, proBNP was 250. Lactic acid was 2.3, patient was given 1, 1/2 L in fluid boluses, currently he is on 0.0 missing a rate of 80 ML per hour, lactic acid has improved and is down to 0.7. Arroyo catheter is in place, patient is producing adequate amount of clear and dilute urine. This morning his fever is controlled, and he is 97.8, blood pressure is 98/71, he is in sinus mechanism with a controlled rate at 85. He is resting comfortably, no evidence of grand mal seizures, he continues on thiamine replacement Progress note dated 07/10/2021. This is a 56-year-old male, who is seen today in room 267, and the intensive care unit. Yesterday, he was seen in the emergency room. He has a history of COPD, alcohol and marijuana use, and chronic tobacco use. The patient was seen in the emergency room for alcohol withdrawal syndrome, and became very agitated, and was started on Ativan, and required intubation and mechanical ventilation for airway protection. He was also found to be positive for influenza A, and was started on Tamiflu. The patient remains in the intensive care unit on the ventilator. Vent settings include a volume assist control, rate 26, tidal volume 450, FiO2 40%, and PEEP of 5. Blood gases show pO2 of 84, pCO2 44, and a pH is 7.36. The patient's on D5.45 at 80 mL an hour, propofol 50 mcg/kg/m, and no tube feedings. Today, the patient will have a daily interruption of sedation, and a spontaneous breathing trial, on pressure support of 5, and CPAP of 5. I believe the patient can likely be extubated. White count 7.7, hemoglobin 12, hematocrit 35.6, platelet count 243,000. Sodium 137, potassium 3.6, chlorides 109, CO2 25, BUN 14, creatinine 0.6. Albumin 3.1. Chest x-ray, and my opinion, is normal. Progress note dated 07/11/2021. This is a 56-year-old male, who was extubated yesterday, July 10. Post extubation, the patient was quite agitated, and required different medications including IM Haldol, oral Seroquel, and IV Ativan. Currently, the patient is on dexmedetomidine at 1.2 mcg/kg/h. He's on 4 L nasal cannula. He is getting dextrose with half-normal saline at 80 mL an hour. He is much less agitated today, and sleeping currently. White count 3.6, hemoglobin 11.8, hematocrit 34.8, platelet count 137,000. Blood gases yesterday have been reviewed. Sodium 137, potassium 4.2, chlorides 106, CO2 28, BUN 13, creatinine 0.66. Anion gap is normal. Chest x-ray shows some bilateral patchy infiltrates. Progress note dated 07/12/2021. This is a 56-year-old male, who was extubated on July 10. The patient was very agitated post extubation, and required number different medications to calm him down. This included IV Ativan, dexmedetomidine, Seroquel, and Haldol. Currently, he's on dexmedetomidine at 1 mcg/kg/h, 6 L nasal cannula, and half- normal saline at 80 mL an hour. We will add some Cleveprex, for elevated blood pressure. The patient can continue getting IV Ativan or IM Haldol, as needed. Sodium 138, potassium 3.7, chlorides 104, CO2 27, anion gap 7, BUN 12, and creatinine 0.66. Sputum sampling showing evidence of Streptococcus pneumoniae. Objective - Vital Signs Vital signs: Vital Signs Temp 99.0 F 07/12/21 08:00 Pulse 95 07/12/21 10:00 Resp 22 07/12/21 10:00 BP 189/136 07/12/21 10:00 Pulse Ox 95 07/12/21 10:00 Intake & Output 07/11/21 07/12/21 07/12/21 18:59 06:59 18:59 Intake Total 8304.813 3199.570 389.409 Output Total 620 615 225 Balance 720.000 549.570 164.409 Weight 72.9 kg Intake: IV 880 960 320 Dextrose 5%-0.45% NaCl 1, 880 960 320 000 ml @ 80 mls/hr IV . [id number] [facility] Rx#:[id number] Intake, IV Titration 400.000 204.570 69.409 Amount Clevidipine Butyrate 25 1.067 mg In Empty Bag 1 bag @ 1 MG/HR 2 mls/hr IV .Q24H [facility] Rx#:[id number] Dexmedetomidine/0.9% NaCl 200.000 204.570 68.342 (Pmx) 400 mcg In Empty Bag 1 bag @ 0.4 MCG/KG/HR 7.15 mls/hr IV .Q14H [facility] Rx#:[id number] Levofloxacin 750Mg-D5w 150 Pmx 750 mg In Dextrose/ Water 1 150ml.bag @ 100 mls/hr IVPB Q24H [facility] Rx#: [id number] cefTRIAXone 1 gm In 50 Sodium Chloride 0.9% 50 ml @ 100 mls/hr IVPB Q24HR [facility] Rx#:[id number] Oral 60 Output: Urine 620 615 225 Other: Voiding Method Indwelling Catheter Indwelling Catheter # Voids 180 - Exam No acute distress, sleeping, and on nasal cannula at 6 L. HEENT examination is grossly unremarkable. Neck supple. Full range of motion. No adenopathy thyromegaly or neck vein distention. Cardiovascular examination reveals regular rhythm rate. S1-S2 normal. No S3 or S4. No discernible murmur noted. Heart rate 95 bpm. Lungs reveal mild scattered rhonchi. No wheezes. No crackles. Sonorous respir ations are noted. Breath sounds equal bilaterally. Saturations are 95 %. Abdomen soft bowel sounds are heard. No masses or tenderness. Extremities are intact. No cyanosis clubbing or edema. Skin is without rash or lesion. Neurologic examination is currently stable. - Labs CBC & Chem 7: 07/11/21 07:25 07/12/21 07:11 Labs: Abnormal Lab Results - Last 24 Hours (Table) 07/12/21 Range/Units 07:11 Glucose 103 H (74-99) mg/dL Microbiology - Last 24 Hours (Table) 07/08/21 23:17 Blood Culture - Preliminary Blood No Growth after 72 hours 07/09/21 04:25 Gram Stain - Final Sputum Sputum Culture - Final Streptococcus pneumoniae Assessment and Plan Assessment: Acute influenza A infection. Hypercapnic respiratory failure secondary to excess Ativan use, for alcohol withdrawal, requiring intubation and mechanical ventilation on 07/08/2021, and successful extubation on 07/10/2021. Acute alcohol withdrawal syndrome, and delirium tremens. Streptococcus pneumoniae tracheobronchitis/pneumonia. Mild lactic acidosis. Hypomagnesemia. Mild hyponatremia. COPD from chronic tobacco use. Chronic alcohol abuse. History of marijuana use. Plan: Plan dated 07/10/2021. The patient will have a daily interruption of sedation today, and hopefully a spontaneous breathing trial, on pressure support of 5 and CPAP of 5. The patient's labs, x-rays, and medications all reviewed. Blood gases are excellent. The patient remains on propofol at 50 mcg/kg/m. Tube feedings have not yet been started. If he is not extubated today, we will have to be started today. The patient will continue on Ativan for potential alcohol withdrawal if necessary. The patient was started on Tamiflu, 75 mg twice a day for a total of 5 days. Additional recommendations and suggestions are forthcoming. Prognosis is guarded. Plan dated 07/11/2021. The patient was extubated yesterday. Last night, the patient gave the nurses a very difficult time, with significant agitation, and confusion. The patient received IV Ativan, IM Haldol, and oral Seroquel. The patient remains on dexmedetomidine. Additional recommendations and suggestions are forthcoming. The patient remains on Tamiflu for influenza a infection. Labs, x-rays, and medications are reviewed. Prognosis is guarded. We will continue to see the patient and make recommendations where appropriate. Progress note dated 07/12/2021. Currently, the patient's resting relatively comfortably in the intensive care unit. The patient is on Levaquin. That will cover his Streptococcus pneumoniae in the sputum. Remains on IV Ativan, and IM Haldol, as needed. The patient is complaining his 5 days of Tamiflu for influenza A infection. Labs, x-rays, medications are reviewed. Prognosis is guarded. The patient is started on Cleveprex for blood pressure control. Additional recommendations and congestions are forthcoming. We will continue to follow the patient and make recommendations where appropriate. Time with Patient: Less than 30
--- NOTE | 2021-07-12 11:54 | XR ---
EXAMINATION TYPE: XR chest 1V portable DATE OF EXAM: 07/12/2021 Comparison: 07/11/2021 Clinical History: 56-year-old male shortness of breath Findings: Heart upper limits of normal in size. Mild hyperinflation. Interstitial prominence. Patchy medial rig ht basilar opacity. Old healed fracture deformity right clavicular shaft. Impression: COPD, similar interstitial densities, and slight increase in patchy medial right basilar atelectasis versus infiltrate. Correlate for any symptoms of potential pneumonia.
[2021-07-12] MEDS: LEVOFLOXACIN 750MG-D5W PMX 750 MG in DEXTROSE/WATER 1 150ML.BAG IVPB SCH (13:17)
--- NOTE | 2021-07-12 13:42 | P.PN ---
Subjective Progress Note Date: 07/12/21 Pt still groggy, encephalopathic. Gen: awake, alert HEENT: normocephalic, atraumatic, good hearing acuity, moist mucous membranes Resp: good air exchange, breathing comfortably with no accessory muscle use CVS: good distal perfusion x 4, GI: soft, NTTP, ND : no SPT, no CVAT, odom catheter is present MSK: no pitting edema, no clubbing Neuro: non-focal, moving all extremities Psych: cooperative, euthymic mood Assessment/plan: Sepsis secondary to influenza infection Community Acquired Pneumonia -Continue with Tamiflu -IVFs -F/u cultures -Ceftriaxone Alcohol withdrawal syndrome Delirium tremens -CIWA protocol+ Ativan when necessary -Thiamine, folate, multivitamin Hypomagnesemia -Replace and monitor Acute hypoxic respiratory failure with baseline COPD -Continue with Solu-Medrol DVT prophylaxis -Heparin subcu The patient is admitted with an anticipated greater than 2 midnight stay for e valuation of sepsis, influenza CODE STATUS: Full Code Anticipated discharge date: 3-[address]: Home Objective - Vital Signs Vital signs: Vital Signs Temp 97.9 F 07/12/21 12:00 Pulse 88 07/12/21 13:00 Resp 21 07/12/21 13:00 BP 136/92 07/12/21 13:00 Pulse Ox 92 L 07/12/21 13:00 Intake & Output 07/11/21 07/12/21 07/12/21 18:59 06:59 18:59 Intake Total 8343.483 3534.570 646.809 Output Total 620 615 775 Balance 720.000 549.570 -128.191 Weight 72.9 kg Intake: IV 880 960 560 Dextrose 5%-0.45% NaCl 1, 880 960 560 000 ml @ 80 mls/hr IV . [id number] [facility] Rx#:[id number] Intake, IV Titration 400.000 204.570 86.809 Amount Clevidipine Butyrate 25 18.467 mg In Empty Bag 1 bag @ 1 MG/HR 2 mls/hr IV .Q24H [facility] Rx#:[id number] Dexmedetomidine/0.9% NaCl 200.000 204.570 68.342 (Pmx) 400 mcg In Empty Bag 1 bag @ 0.4 MCG/KG/HR 7.15 mls/hr IV .Q14H [facility] Rx#:[id number] Levofloxacin 750Mg-D5w 150 Pmx 750 mg In Dextrose/ Water 1 150ml.bag @ 100 mls/hr IVPB Q24H [facility] Rx#: [id number] cefTRIAXone 1 gm In 50 Sodium Chloride 0.9% 50 ml @ 100 mls/hr IVPB Q24HR [facility] Rx#:[id number] Oral 60 Output: Urine 620 615 775 Other: Voiding Method Indwelling Catheter Indwelling Catheter Indwelling Catheter # Voids 180 - Labs CBC & Chem 7: 07/11/21 07:25 07/12/21 07:11 Labs: Abnormal Lab Results - Last 24 Hours (Table) 07/12/21 Range/Units 07:11 Glucose 103 H (74-99) mg/dL Microbiology - Last 24 Hours (Table) 07/08/21 23:17 Blood Culture - Preliminary Blood No Growth after 72 hours 07/09/21 04:25 Gram Stain - Final Sputum Sputum Culture - Final Streptococcus pneumoniae
[2021-07-12] MEDS ORDERED: IPRATROPIUM-ALBUTEROL 3 ML NEB INHALATION PRN (23:27)
[2021-07-13] MEDS: LORazepam 2 MG/ML INJ IV PRN ×9 (00:30→22:12)
[2021-07-13] MEDS: CLEVIDIPINE BUTYRATE 25 MG in EMPTY BAG 1 BAG IV SCH ×4 (00:49→20:52)
[2021-07-13] MEDS: DEXMEDETOMIDINE/0.9% NACL(PMX) 400 MCG in EMPTY BAG 1 BAG IV SCH ×4 (01:54→17:09)
[2021-07-13] MEDS: HALOPERIDOL LACTATE 5 MG/ML 1 ML VIAL IM PRN (04:24)
[2021-07-13] MEDS: DEXTROSE 5%-0.45% NACL 1,000 ML IV SCH (05:01)
[2021-07-13] MEDS ORDERED: Magnesium Replacement Protocol 1 EACH MISC MISCELLANE PRN (07:37)
[2021-07-13] MEDS: IPRATROPIUM-ALBUTEROL 3 ML NEB INHALATION SCH ×4 (08:05→21:59)
[2021-07-13] MEDS: MAGNESIUM SULFATE-D5W PMX 1 GM in DEXTROSE/WATER 1 100ML.BAG IVPB SCH ×2 (09:05→12:32)
[2021-07-13] MEDS: PANTOPRAZOLE 40 MG/10 ML VIAL IV SCH (09:06)
--- NOTE | 2021-07-13 11:27 | P.PN ---
Subjective Progress Note Date: 07/13/21 Principal diagnosis: Influenza A infection, acute EtOH withdrawal 56-year-old male patient, current smoker, with history of COPD, EtOH and marijuana use, presented to the emergency department on 07/08/2021 for evaluation of cough, congestion, dyspnea and fever. Patient tested positive for influenza A, and tested negative for COVID-19 and influenza B. He had a fever of 103 degrees Fahrenheit on presentation. He was tachycardic with a rate of 154, but in sinus mechanism. Chest x-ray showed no active cardiopulmonary disease. Patient was started on Tamiflu, IV steroids, and breathing treatments. However patient was starting to become agitated, and it was suspected that he was going through acute EtOH withdrawal, patient was given multiple doses of IV Ativan, to the point of unresponsiveness, and there was a concern about his airway protection and for that reason she was intubated and placed on mechanical ventilator. He was started on propofol and Versed infusion. He is awaiting a bed in the ICU, he seen in the emergency department. He is sedated and intubate d, he is on assist-control mode of ventilation with a rate of 26, tidal volume 450, FiO2 100% and PEEP of 5, blood gas this morning shows pO2 of greater than 400, pCO2 of 59, and pH of 7.19. This was done on respiratory rate of 24 which was subsequently increased to 26, and FiO2 was dropped down to 40%. His chest x-ray today shows no active cardiopulmonary disease, ET tube 4 cm above the tammy. Today's blood work has been reviewed, with little, is 5.5, hemoglobin is 12.9, serum sodium is 1:30 which is improved from 127 on admission, potassium is 4.2, chloride is 100, BUN is 16, creatinine 0.78. Troponin was 0.0-3, CRP was 5.9, proBNP was 250. Lactic acid was 2.3, patient was given 1, 1/2 L in fluid boluses, currently he is on 0.0 missing a rate of 80 ML per hour, lactic acid has improved and is down to 0.7. Arroyo catheter is in place, patient is producing adequate amount of clear and dilute urine. This morning his fever is controlled, and he is 97.8, blood pressure is 98/71, he is in sinus mechanism with a controlled rate at 85. He is resting comfortably, no evidence of grand mal seizures, he continues on thiamine replacement. On 07/13/2021 patient seen in follow-up in the intensive care unit. Patient was successfully weaned and extubated from mechanical ventilator on 07/10/2021. His alcohol withdrawal symptoms seem to be improving, patient remains on Precedex infusion, which is currently down to 0.8 mics per kilo per hour. Patient has required some intermittent doses of Ativan, required only 2 mg of Ativan last night, in addition to a single dose of morphine yesterday in the afternoon. His resting comfortably, he is drowsy, but he does respond to verbal stimulation, follows simple command. Does not appear to be in any acute distress. Also remains on Cleviprex at 4 mg per hour, and D5 half-normal saline at a rate of 80 ML per hour. Currently on 8 L of oxygen his pulse ox is 96%. Yesterday's chest x-ray was showing COPD, some interstitial densities, and patchy medial right basilar atelectasis versus infiltrate with the possibility of potential pne umonia possibly related to aspiration. Today's lab 7 reviewed showing electrolytes and renal profile within normal limits. Magnesium is 1.7 it is being replaced per protocol. Sputum culture showed Streptococcus pneumonia, blood cultures have been negative. Patient has been started on Levaquin for strep pneumonia. T-max in the last 24 hours was 99.7F, blood pressure is been stable. He is in sinus mechanism with a rate of 77. No nausea vomiting or diarrhea, abdomen is soft. Objective - Vital Signs Vital signs: Vital Signs Temp 99 F 07/13/21 08:30 Pulse 77 07/13/21 10:00 Resp 18 07/13/21 10:00 BP 121/92 07/13/21 10:00 Pulse Ox 94 L 07/13/21 10:00 Intake & Output 07/12/21 07/13/21 07/13/21 18:59 06:59 18:59 Intake Total 3369.294 3677.312 427.356 Output Total 1625 3025 525 Balance -134.347 -1706.688 -97.644 Weight 66.5 kg 66.5 kg Intake: IV 1310 960 320 Dextrose 5%-0.45% NaCl 1, 960 960 320 000 ml @ 80 mls/hr IV . [id number] [facility] Rx#:[id number] levaquin 150 magnesium 200 Intake, IV Titration 180.653 358.312 107.356 Amount Clevidipine Butyrate 25 18.467 77.566 46.133 mg In Empty Bag 1 bag @ 1 MG/HR 2 mls/hr IV .Q24H [facility] Rx#:[id number] Dexmedetomidine/0.9% NaCl 162.186 280.746 61.223 (Pmx) 400 mcg In Empty Bag 1 bag @ 0.4 MCG/KG/HR 7.15 mls/hr IV .Q14H [facility] Rx#:[id number] Output: Urine 1625 3025 525 Other: Voiding Method Indwelling Catheter Indwelling Catheter - Exam GENERAL EXAM: Drowsy, but arousable to voice, follows simple commands, 56-year-old white male, 7 L of oxygen pulse ox is 94% comfortable in no apparent distress. HEAD: Normocephalic/atraumatic. EYES: Normal reaction of pupils, equal size. Conjunctiva pink, sclera white. NOSE: Clear with pink turbinates. THROAT: No erythema or exudates. NECK: No masses, no JVD, no thyroid enlargement, no adenopathy. CHEST: No chest wall deformity. Symmetrical expansion. LUNGS: Equal air entry with no crackles, wheeze, rhonchi or dullness. CVS: Regular rate and rhythm, normal S1 and S2, no gallops, no murmurs, no rubs ABDOMEN: Soft, nontender. No hepatosplenomegaly, normal bowel sounds, no guarding or rigidity. EXTREMITIES: No clubbing, no edema, no cyanosis, 2+ pulses and upper and lower extremities. MUSCULOSKELETAL: Muscle strength and tone normal. SPINE: No scoliosis or deformity SKIN: No rashes CENTRAL NERVOUS SYSTEM: Drowsy but responds to verbal stimulation. No focal deficits, tone is normal in all 4 extremities. - Labs CBC & Chem 7: 07/11/21 07:25 07/12/21 07:11 Labs: Microbiology - Last 24 Hours (Table) 07/08/21 23:17 Blood Culture - Preliminary Blood No Growth after 96 hours Assessment and Plan Plan: Assessment: #1. Acute influenza A infection #2. Acute pneumonia, sputum culture showed strep pneumonia, currently on Levaquin #3. Acute hypercapnic respiratory failure related to excess Ativan used to control acute alcohol withdrawal, requiring intubation and placement on mechani dar ventilator on 07/08/2021, extubated on 07/10/2021 #4. Acute alcohol withdrawal, and delirium tremens #5. Mild lactic acidosis, corrected with IV fluids #6. Hypomagnesemia #7. Mild hyponatremia, likely hypovolemic, improved with IV hydration #8. COPD #9. Chronic smoker #10. EtOH abuse #11. Marijuana use Plan: Continue current antibiotics Maintain aspiration precautions Wean Precedex as tolerated Continue CIWA protocol monitoring Continue Cleviprex for BP control until the patient is safe to take oral medications Weaning FiO2 to maintain O2 saturations at or above 92% Continue breathing treatments Follow-up labs tomorrow Continue monitoring in the intensive care unit Maintain safety precautions I have personally seen and examined the patient, performed the documentation and the assessment and plan as written. Number of minutes spent on the visit: [15] Time with Patient: Less than 30
[2021-07-13 12:33] LABS: HCT 39.1 % (39.0-53.0); HGB 13.2 gm/dL (13.0-17.5); MCH 40.9 pg (25.0-35.0); MCHC 33.9 g/dL (31.0-37.0); MCV 120.7 fL (80.0-100.0); Macrocytosis Marked; Mean Platelet Volume 9.3; Platelet Count 247 k/uL (150-450); RBC 3.24 m/uL (4.30-5.90); RDW 14.7 % (11.5-15.5)
[2021-07-13 13:32] LABS: African American GFR (CKD) >90 (>60 ml/min/1.73 sqM); Anion Gap 2 mmol/L; Blood Urea Nitrogen 8 mg/dL (9-20); Calcium 8.4 mg/dL (8.4-10.2); Carbon Dioxide 38 mmol/L (22-30); Chloride 97 mmol/L (98-107); Glucose 101 mg/dL (74-99); Non-African American GFR(CKD) >90 (>60 ml/min/1.73 sqM); Sodium 137 mmol/L (137-145)
[2021-07-13 13:38] LABS: Potassium 3.4 mmol/L (3.5-5.1)
[2021-07-13 13:47] LABS: Band Neutrophils % 1 %; Eosinophils # (M) 0.07 k/uL (0-0.7); Metamyelocytes % 2 %; Myelocytes % 2 %; Neutrophils % (M) 58 %; Nucleated Red Blood Cells 1 /100 WBC (0-0); Total Cells Counted 200
[2021-07-13 13:48] LABS: Lymphocytes # (M) 1.14 k/uL (1.0-4.8); Metamyelocytes # (M) 0.13 k/uL (0); Monocytes # (M) 1.41 k/uL (0-1.0); Myelocytes # (M) 0.13 k/uL (0); WBC 6.7 k/uL (3.8-10.6)
--- NOTE | 2021-07-13 13:54 | P.PN ---
Subjective Progress Note Date: 07/13/21 Pt still groggy, encephalopathic. Gen: awake, alert HEENT: normocephalic, atraumatic, good hearing acuity, moist mucous membranes Resp: good air exchange, breathing comfortably with no accessory muscle use CVS: good distal perfusion x 4, GI: soft, NTTP, ND : no SPT, no CVAT, odom catheter is present MSK: no pitting edema, no clubbing Neuro: non-focal, moving all extremities Psych: cooperative, euthymic mood Assessment/plan: Sepsis secondary to influenza infection Community Acquired Pneumonia -Continue with Tamiflu -IVFs -F/u cultures -Ceftriaxone Alcohol withdrawal syndrome Delirium tremens -CIWA protocol+ Ativan when necessary -Thiamine, folate, multivitamin Hypomagnesemia -Replace and monitor Acute hypoxic respiratory failure with baseline COPD -Continue with Solu-Medrol DVT prophylaxis -Heparin subcu The patient is admitted with an anticipated greater than 2 midnight stay for e valuation of sepsis, influenza CODE STATUS: Full Code Anticipated discharge date: 3-[address]: Home Objective - Vital Signs Vital signs: Vital Signs Temp 99 F 07/13/21 08:30 Pulse 84 07/13/21 12:30 Resp 16 07/13/21 12:38 BP 145/112 07/13/21 12:30 Pulse Ox 92 L 07/13/21 12:30 Intake & Output 07/12/21 07/13/21 07/13/21 18:59 06:59 18:59 Intake Total 6109.636 3452.312 627.356 Output Total 1625 3025 770 Balance -134.347 -1706.688 -142.644 Weight 66.5 kg 66.5 kg Intake: IV 1310 960 520 Dextrose 5%-0.45% NaCl 1, 960 960 320 000 ml @ 80 mls/hr IV . [id number] [facility] Rx#:[id number] levaquin 150 magnesium 200 200 Intake, IV Titration 180.653 358.312 107.356 Amount Clevidipine Butyrate 25 18.467 77.566 46.133 mg In Empty Bag 1 bag @ 1 MG/HR 2 mls/hr IV .Q24H [facility] Rx#:[id number] Dexmedetomidine/0.9% NaCl 162.186 280.746 61.223 (Pmx) 400 mcg In Empty Bag 1 bag @ 0.4 MCG/KG/HR 7.15 mls/hr IV .Q14H [facility] Rx#:[id number] Output: Urine 1625 3025 770 Other: Voiding Method Indwelling Catheter Indwelling Catheter Indwelling Catheter - Labs CBC & Chem 7: 07/13/21 06:53 07/13/21 13:06 Labs: Abnormal Lab Results - Last 24 Hours (Table) 07/13/21 07/13/21 Range/Units 06:53 13:06 RBC 3.24 L (4.30-5.90) m/uL MCV 120.7 H (80.0-100.0) fL MCH 40.9 H (25.0-35.0) pg Monocytes # (Manual) 1.41 H (0-1.0) k/uL Metamyelocytes # (Man) 0.13 H (0) k/uL Myelocytes # (Manual) 0.13 H (0) k/uL Nucleated RBCs 1 H (0-0) /100 WBC Macrocytosis Marked A Potassium 3.4 L (3.5-5.1) mmol/L Chloride 97 L (98-107) mmol/L Carbon Dioxide 38 H (22-30) mmol/L BUN 8 L (9-20) mg/dL Creatinine 0.57 L (0.66-1.25) mg/dL Glucose 101 H (74-99) mg/dL Microbiology - Last 24 Hours (Table) 07/08/21 23:17 Blood Culture - Preliminary Blood No Growth after 96 hours
[2021-07-13] MEDS: LEVOFLOXACIN 750MG-D5W PMX 750 MG in DEXTROSE/WATER 1 150ML.BAG IVPB SCH (14:08)
[2021-07-13] MEDS ORDERED: Potassium Replacement Protocol 1 EACH MISC MISCELLANE PRN (16:56)
[2021-07-13] MEDS: POTASSIUM CHLORIDE 10 MEQ in WATER FOR INJECTION 1 100ML.BAG IVPB SCH ×4 (17:12→21:24)
[2021-07-14] MEDS: DEXMEDETOMIDINE/0.9% NACL(PMX) 400 MCG in EMPTY BAG 1 BAG IV SCH ×3 (01:35→09:09)
[2021-07-14] MEDS: DEXTROSE 5%-0.45% NACL 1,000 ML IV SCH ×3 (01:36→19:10)
[2021-07-14] MEDS: LORazepam 2 MG/ML INJ IV PRN ×2 (02:28→23:01)
[2021-07-14] MEDS: CLEVIDIPINE BUTYRATE 25 MG in EMPTY BAG 1 BAG IV SCH (05:40)
[2021-07-14] MEDS: IPRATROPIUM-ALBUTEROL 3 ML NEB INHALATION SCH ×4 (08:07→19:52)
[2021-07-14 08:32] LABS: African American GFR (CKD) >90 (>60 ml/min/1.73 sqM); Anion Gap 8 mmol/L; Blood Urea Nitrogen 10 mg/dL (9-20); Calcium 8.5 mg/dL (8.4-10.2); Carbon Dioxide 30 mmol/L (22-30); Chloride 100 mmol/L (98-107); Glucose 100 mg/dL (74-99); Magnesium 1.8 mg/dL (1.6-2.3); Non-African American GFR(CKD) >90 (>60 ml/min/1.73 sqM); Potassium 3.4 mmol/L (3.5-5.1); Sodium 138 mmol/L (137-145)
[2021-07-14 08:43] LABS: HCT 42.4 % (39.0-53.0); HGB 14.3 gm/dL (13.0-17.5); MCH 40.2 pg (25.0-35.0); MCHC 33.8 g/dL (31.0-37.0); Macrocytosis Marked; Mean Platelet Volume 8.7; Platelet Count 350 k/uL (150-450); RBC 3.57 m/uL (4.30-5.90); RDW 14.6 % (11.5-15.5); WBC 8.9 k/uL (3.8-10.6)
[2021-07-14] MEDS ORDERED: Magnesium Replacement Protocol 1 EACH MISC MISCELLANE PRN (08:54)
[2021-07-14] MEDS ORDERED: Potassium Replacement Protocol 1 EACH MISC MISCELLANE PRN (08:54)
[2021-07-14] MEDS: PANTOPRAZOLE 40 MG/10 ML VIAL IV SCH (09:09)
[2021-07-14] MEDS: MAGNESIUM SULFATE-D5W PMX 1 GM in DEXTROSE/WATER 1 100ML.BAG IVPB SCH ×2 (09:12→10:32)
[2021-07-14] MEDS: POTASSIUM CHLORIDE 10 MEQ in WATER FOR INJECTION 1 100ML.BAG IVPB SCH ×6 (09:13→23:01)
[2021-07-14 09:21] LABS: Band Neutrophils % 5 %; Eosinophils # (M) 0.09 k/uL (0-0.7); Lymphocytes # (M) 2.05 k/uL (1.0-4.8); Metamyelocytes # (M) 0.18 k/uL (0); Metamyelocytes % 2 %; Myelocytes # (M) 0.18 k/uL (0); Myelocytes % 2 %; Neutrophils % (M) 42 %; Nucleated Red Blood Cells 0 /100 WBC (0-0); Total Cells Counted 200
[2021-07-14] MEDS: LEVOFLOXACIN 750MG-D5W PMX 750 MG in DEXTROSE/WATER 1 150ML.BAG IVPB SCH (12:42)
--- NOTE | 2021-07-14 13:46 | P.PN ---
Subjective Progress Note Date: 07/14/21 Principal diagnosis: Acute alcohol withdrawal and influenza A infection 56-year-old male patient, current smoker, with history of COPD, EtOH and marijuana use, presented to the emergency department on 07/08/2021 for evaluation of cough, congestion, dyspnea and fever. Patient tested positive for influenza A, and tested negative for COVID-19 and influenza B. He had a fever of 103 degrees Fahrenheit on presentation. He was tachycardic with a rate of 154, but in sinus mechanism. Chest x-ray showed no active cardiopulmonary disease. Patient was started on Tamiflu, IV steroids, and breathing treatments. However patient was starting to become agitated, and it was suspected that he was going through acute EtOH withdrawal, patient was given multiple doses of IV Ativan, to the point of unresponsiveness, and there was a concern about his airway protection and for that reason she was intubated and placed on mechanical ventilator. He was started on propofol and Versed infusion. He is awaiting a bed in the ICU, he seen in the emergency department. He is sedated and int ubated, he is on assist-control mode of ventilation with a rate of 26, tidal volume 450, FiO2 100% and PEEP of 5, blood gas this morning shows pO2 of greater than 400, pCO2 of 59, and pH of 7.19. This was done on respiratory rate of 24 which was subsequently increased to 26, and FiO2 was dropped down to 40%. His chest x-ray today shows no active cardiopulmonary disease, ET tube 4 cm above the tammy. Today's blood work has been reviewed, with little, is 5.5, hemoglobin is 12.9, serum sodium is 1:30 which is improved from 127 on admission, potassium is 4.2, chloride is 100, BUN is 16, creatinine 0.78. Troponin was 0.0-3, CRP was 5.9, proBNP was 250. Lactic acid was 2.3, patient was given 1, 1/2 L in fluid boluses, currently he is on 0.0 missing a rate of 80 ML per hour, lactic acid has improved and is down to 0.7. Arroyo catheter is in place, patient is producing adequate amount of clear and dilute urine. This morning his fever is controlled, and he is 97.8, blood pressure is 98/71, he is in sinus mechanism with a controlled rate at 85. He is resting comfortably, no evidence of grand mal seizures, he continues on thiamine replacement. On 07/13/2021 patient seen in follow-up in the intensive care unit. Patient was successfully weaned and extubated from mechanical ventilator on 07/10/2021. His alcohol withdrawal symptoms seem to be improving, patient remains on Precedex infusion, which is currently down to 0.8 mics per kilo per hour. Patient has required some intermittent doses of Ativan, required only 2 mg of Ativan last night, in addition to a single dose of morphine yesterday in the afternoon. His resting comfortably, he is drowsy, but he does respond to verbal stimulation, follows simple command. Does not appear to be in any acute distress. Also remains on Cleviprex at 4 mg per hour, and D5 half-normal saline at a rate of 80 ML per hour. Currently on 8 L of oxygen his pulse ox is 96%. Yesterday's chest x-ray was showing COPD, some interstitial densities, and patchy medial right basilar atelectasis versus infiltrate with the possibility of potential pneumonia possibly related to aspiration. Today's lab 7 reviewed showing electrolytes and renal profile within normal limits. Magnesium is 1.7 it is being replaced per protocol. Sputum culture showed Streptococcus pneumonia, blood cultures have been negative. Patient has been started on Levaquin for strep pneumonia. T-max in the last 24 hours was 99.7F, blood pressure is been stable. He is in sinus mechanism with a rate of 77. No nausea vomiting or diarrhea, abdomen is soft. Reevaluated today on 07/14/2021, patient remains in the ICU, remains on 2 L nasal cannula with O2 sat showed 94%, remains on Precedex and this is being weaned down, he is on Cleviprex at 2 mg per hour. Patient is requiring intermittently Ativan and Haldol. But overall the patient is doing much better. Remains on Levaquin. Patient is drowsy, but seems to be a bit more cooperative today compared to the last few days. Sputum was positive for Streptococcus pneumonia, chest x-ray showed minimal bibasilar infiltrates blood cultures have been negative. Objective - Vital Signs Vital signs: Vital Signs Temp 97.1 F L 07/14/21 08:00 Pulse 73 07/14/21 12:00 Resp 24 07/14/21 12:00 BP 107/80 07/14/21 12:00 Pulse Ox 95 07/14/21 12:00 Intake & Output 07/13/21 07/14/21 07/14/21 18:59 06:59 18:59 Intake Total 5110.399 6773.2 792.422 Output Total 1385 2105 203 Balance 47.669 -659.8 589.422 Weight 66.5 kg 64.5 kg Intake: IV 1190 1160 655 Dextrose 5%-0.45% NaCl 1, 640 960 155 000 ml @ 80 mls/hr IV . [id number] [facility] Rx#:[id number] Magnesium Sulfate-D5w Pmx 200 1 gm In Dextrose/Water 1 100ml.bag @ 100 mls/hr IVPB Q1H [facility] Rx#: [id number] Potassium Chloride 10 meq 200 200 300 In Water For Injection 1 100ml.bag @ 100 mls/hr IVPB Q1HR [facility] Rx#: [id number] levaquin 150 magnesium 200 Intake, IV Titration 242.669 285.2 137.422 Amount Clevidipine Butyrate 25 96.133 85.2 28.533 mg In Empty Bag 1 bag @ 1 MG/HR 2 mls/hr IV .Q24H [facility] Rx#:[id number] Dexmedetomidine/0.9% NaCl 146.536 200 108.889 (Pmx) 400 mcg In Empty Bag 1 bag @ 0.4 MCG/KG/HR 7.15 mls/hr IV .Q14H [facility] Rx#:[id number] Output: Urine 1385 2105 203 Other: Voiding Method Indwelling Catheter Indwelling Catheter Indwelling Catheter - Exam Physical Exam: Revealed 56-year-old white male, sedated, lethargic, but arousable. HEENT:[Neck is supple.] [No neck masses.] [No thyromegaly.] [No JVD.] Chest: [Minimal crackles at the bases. No rhonchi and no wheezes. Cardiac Exam: [Normal S1 and S2, no S3 gallop, no murmur.] Abdomen: [Soft, nontender, no megaly, no rebound, no guarding, normal bowel sounds.] Extremities: [No clubbing, no edema, no cyanosis.] Neurological Exam: Lethargic, arousable, does not follow instructions. Psychiatric: Could not fully assess. Musculoskeletal: No deformities and no limitation in range of motion. - Labs CBC & Chem 7: 07/14/21 07:00 07/14/21 07:00 Labs: Abnormal Lab Results - Last 24 Hours (Table) 07/13/21 07/13/21 07/13/21 Range/Units 06:53 06:53 13:06 RBC (4.30-5.90) m/uL MCV (80.0-100.0) fL MCH (25.0-35.0) pg Monocytes # (Manual) 1.41 H (0-1.0) k/uL Metamyelocytes # (Man) 0.13 H (0) k/uL Myelocytes # (Manual) 0.13 H (0) k/uL Nucleated RBCs 1 H (0-0) /100 WBC Macrocytosis Potassium 3.4 L (3.5-5.1) mmol/L Chloride 97 L (98-107) mmol/L Carbon Dioxide 38 H (22-30) mmol/L BUN 8 L (9-20) mg/dL Creatinine 0.57 L (0.66-1.25) mg/dL Glucose 101 H (74-99) mg/dL Procalcitonin 0.95 H (0.02-0.09) ng/mL 07/14/21 07/14/21 Range/Units 07:00 07:00 RBC 3.57 L (4.30-5.90) m/uL MCV 119.0 H (80.0-100.0) fL MCH 40.2 H (25.0-35.0) pg Monocytes # (Manual) 2.40 H (0-1.0) k/uL Metamyelocytes # (Man) 0.18 H (0) k/uL Myelocytes # (Manual) 0.18 H (0) k/uL Nucleated RBCs (0-0) /100 WBC Macrocytosis Marked A Potassium 3.4 L (3.5-5.1) mmol/L Chloride (98-107) mmol/L Carbon Dioxide (22-30) mmol/L BUN (9-20) mg/dL Creatinine 0.59 L (0.66-1.25) mg/dL Glucose 100 H (74-99) mg/dL Procalcitonin (0.02-0.09) ng/mL Microbiology - Last 24 Hours (Table) 07/08/21 23:17 Blood Culture - Preliminary Blood No Growth after 120 hours Assessment and Plan Assessment: Impression: Acute pneumonia secondary to Streptococcus pneumoniae Acute influenza infection Acute hypercapnic respiratory failure mostly related to sedation, required for alcohol withdrawal symptoms Acute alcohol withdrawal and delirium tremens Hypovolemic hyponatremia Underlying chronic obstructive lung disease, inactive at present. Chronic smoker Alcohol abuse Recommendation: Continue antibiotics Continue aspiration precautions Wean and possibly discontinue Precedex Continue ciwa protocol. Continue updrafts Continue to monitor in the ICU at least for the next 24-48 hours. We'll continue to follow Time with Patient: Less than 30
--- NOTE | 2021-07-14 14:22 | P.PN ---
Subjective Progress Note Date: 07/14/21 patient was somnolent this morning. He is only able to give me his name. I discussed the case with the nurse who said that she had just turned off his Precedex. Objective - Vital Signs Vital signs: Vital Signs Temp 97.1 F L 07/14/21 08:00 Pulse 115 H 07/14/21 14:00 Resp 14 07/14/21 14:00 BP 101/75 07/14/21 14:00 Pulse Ox 94 L 07/14/21 14:00 Intake & Output 07/13/21 07/14/21 07/14/21 18:59 06:59 18:59 Intake Total 3778.314 5309.2 872.422 Output Total 1385 2105 248 Balance 47.669 -659.8 624.422 Weight 66.5 kg 64.5 kg Intake: IV 1190 1160 735 Dextrose 5%-0.45% NaCl 1, 640 960 235 000 ml @ 80 mls/hr IV . [id number] [facility] Rx#:[id number] Magnesium Sulfate-D5w Pmx 200 1 gm In Dextrose/Water 1 100ml.bag @ 100 mls/hr IVPB Q1H [facility] Rx#: [id number] Potassium Chloride 10 meq 200 200 300 In Water For Injection 1 100ml.bag @ 100 mls/hr IVPB Q1HR [facility] Rx#: [id number] levaquin 150 magnesium 200 Intake, IV Titration 242.669 285.2 137.422 Amount Clevidipine Butyrate 25 96.133 85.2 28.533 mg In Empty Bag 1 bag @ 1 MG/HR 2 mls/hr IV .Q24H [facility] Rx#:[id number] Dexmedetomidine/0.9% NaCl 146.536 200 108.889 (Pmx) 400 mcg In Empty Bag 1 bag @ 0.4 MCG/KG/HR 7.15 mls/hr IV .Q14H [facility] Rx#:[id number] Output: Urine 1385 2105 248 Other: Voiding Method Indwelling Catheter Indwelling Catheter Indwelling Catheter - Exam General examination - Alert and Oriented 1 in NAD Heart - + S1S2 no murmurs Lungs - diminished breath sounds bilaterally Abdomen soft NT ND +ve BS Extremities - No edema [employer] - Moving all 4 extremities spontaneously Psych - somnolent - Labs CBC & Chem 7: 07/14/21 07:00 07/14/21 07:00 Labs: Abnormal Lab Results - Last 24 Hours (Table) 07/13/21 07/14/21 07/14/21 Range/Units 06:53 07:00 07:00 RBC 3.57 L (4.30-5.90) m/uL MCV 119.0 H (80.0-100.0) fL MCH 40.2 H (25.0-35.0) pg Monocytes # (Manual) 2.40 H (0-1.0) k/uL Metamyelocytes # (Man) 0.18 H (0) k/uL Myelocytes # (Manual) 0.18 H (0) k/uL Macrocytosis Marked A Potassium 3.4 L (3.5-5.1) mmol/L Creatinine 0.59 L (0.66-1.25) mg/dL Glucose 100 H (74-99) mg/dL Procalcitonin 0.95 H (0.02-0.09) ng/mL Microbiology - Last 24 Hours (Table) 07/08/21 23:17 Blood Culture - Preliminary Blood No Growth after 120 hours Assessment and Plan Assessment: #Acute pneumonia secondary to Streptococcus pneumonia #Acute influenza infection #Acute hypercapnic respiratory failure mostly related to sedation -Continue Levaquin -Aspiration precautions -Patient currently on 2 L nasal cannula and is satting well #Acute alcohol withdrawal with delirium tremens -Patient weaned off the Precedex drip this morning -CIWA protocol -Patient also on when necessary Haldol #Chronic obstructive lung disease -stable #Chronic smoker The patient is admitted with an anticipated greater than 2 midnight stay for evaluation of sepsis, influenza CODE STATUS: Full Code Anticipated discharge date: 3-[address]: Home
[2021-07-14] MEDS ORDERED: SODIUM CHLORIDE 0.9% 1,000 ML IV ONE (16:10)
[2021-07-15 03:40] LABS: Glucose,Whole Blood 104 mg/dL (75-99)
[2021-07-15] MEDS ORDERED: cloNIDine HCL 0.1 MG TAB PO STA (04:18)
[2021-07-15] MEDS: BENZONATATE 100 MG CAP PO PRN ×2 (04:31→09:59)
[2021-07-15] MEDS: LORazepam 2 MG/ML INJ IV PRN ×5 (06:10→15:16)
[2021-07-15] MEDS: IPRATROPIUM-ALBUTEROL 3 ML NEB INHALATION SCH ×6 (07:24→19:38)
[2021-07-15 08:52] LABS: African American GFR (CKD) >90 (>60 ml/min/1.73 sqM); Anion Gap 7 mmol/L; Blood Urea Nitrogen 14 mg/dL (9-20); Calcium 8.1 mg/dL (8.4-10.2); Carbon Dioxide 26 mmol/L (22-30); Chloride 105 mmol/L (98-107); Glucose 95 mg/dL (74-99); Non-African American GFR(CKD) >90 (>60 ml/min/1.73 sqM); Sodium 138 mmol/L (137-145)
[2021-07-15] MEDS: PANTOPRAZOLE 40 MG/10 ML VIAL IV SCH (09:14)
[2021-07-15] MEDS ORDERED: DIPHENOX-ATROP 2.5-0.025 MG 1 EACH TAB PO PRN (09:54)
[2021-07-15] MEDS: METOPROLOL TARTRATE 25 MG TAB PO SCH ×2 (10:01→20:27)
[2021-07-15] MEDS: DEXTROSE 5%-0.45% NACL 1,000 ML IV SCH ×2 (10:07→13:47)
--- NOTE | 2021-07-15 11:17 | P.PN ---
Subjective Progress Note Date: 07/15/21 Patient is much more awake and alert today. He is AAO 3. Per nurse patient did require Ativan twice last night due to hallucinations. Patient also and moderate to severe respiratory distress. He is using his abdominal muscles to breathe. I reviewed the chest x-ray myself and there are no acute findings. Patient's O2 requirements have been increasing. I did tell the ICU nurse to notify pulmonology. Objective - Vital Signs Vital signs: Vital Signs Temp 98.6 F 07/15/21 07:30 Pulse 120 H 07/15/21 10:54 Resp 31 H 07/15/21 10:00 BP 177/101 07/15/21 10:00 Pulse Ox 94 L 07/15/21 10:00 Intake & Output 07/14/21 07/15/21 07/15/21 18:59 06:59 18:59 Intake Total 2462.422 1360 320 Output Total 368 540 360 Balance 2094.422 820 -40 Weight 67 kg Intake: IV 2325 1160 320 Dextrose 5%-0.45% NaCl 1, 475 960 320 000 ml @ 80 mls/hr IV . [id number] [facility] Rx#:[id number] Levofloxacin 750Mg-D5w 150 Pmx 750 mg In Dextrose/ Water 1 150ml.bag @ 100 mls/hr IVPB Q24H [facility] Rx#: [id number] Magnesium Sulfate-D5w Pmx 200 1 gm In Dextrose/Water 1 100ml.bag @ 100 mls/hr IVPB Q1H [facility] Rx#: [id number] Potassium Chloride 10 meq 200 In Water For Injection 1 100ml.bag @ 100 mls/hr IVPB Q1H [facility] Rx#: [id number] Potassium Chloride 10 meq 500 In Water For Injection 1 100ml.bag @ 100 mls/hr IVPB Q1HR [facility] Rx#: [id number] Sodium Chloride 0.9% 1, 1000 000 ml @ 999 mls/hr IV . Q1H1M [facility] Rx#:[id number] Intake, IV Titration 137.422 Amount Clevidipine Butyrate 25 28.533 mg In Empty Bag 1 bag @ 1 MG/HR 2 mls/hr IV .Q24H [facility] Rx#:[id number] Dexmedetomidine/0.9% NaCl 108.889 (Pmx) 400 mcg In Empty Bag 1 bag @ 0.4 MCG/KG/HR 7.15 mls/hr IV .Q14H [facility] Rx#:[id number] Oral 200 Output: Urine 368 540 360 Other: Voiding Method Indwelling Catheter Indwelling Catheter Indwelling Catheter # Bowel Movements 1 1 - Exam General examination - Alert and Oriented 3 in moderate to severe respiratory distress Heart - + S1S2 no murmurs Lungs -mild wheezing with rhonchi throughout Abdomen soft NT ND +ve BS Extremities - No edema 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 Psych - mildly confused - Labs CBC & Chem 7: 07/14/21 07:00 07/15/21 07:55 Labs: Abnormal Lab Results - Last 24 Hours (Table) 07/15/21 07/15/21 Range/Units 03:27 07:55 POC Glucose (mg/dL) 104 H (75-99) mg/dL Calcium 8.1 L (8.4-10.2) mg/dL Microbiology - Last 24 Hours (Table) 07/08/21 23:17 Blood Culture - Final Blood No Growth after 144 hours Assessment and Plan Assessment: #Acute pneumonia secondary to Streptococcus pneumonia #Acute influenza infection #Acute hypercapnic respiratory failure #COPD exacerbation -Continue Levaquin -Aspiration precautions -Patient currently on 2 L nasal cannula and is satting well -We'll start the patient on steroids. Resume breathing treatments -Patient is a low threshold for BiPAP #Acute alcohol withdrawal with delirium tremens -Patient weaned off the Precedex drip this morning -CIWA protocol -Patient also on when necessary Haldol #Chronic smoker The patient is admitted with an anticipated greater than 2 midnight stay for evaluation of sepsis, influenza CODE STATUS: Full Code Anticipated discharge date: 3-[address]: Home
[2021-07-15] MEDS: methylPREDNISolone SOD SUCCI 40 MG/ML 1 ML VIAL IV SCH (11:50)
--- NOTE | 2021-07-15 12:06 | XR ---
EXAMINATION TYPE: XR chest 1V portable DATE OF EXAM: 07/15/2021 COMPARISON: 07/12/2021 INDICATION: Short of breath TECHNIQUE: Single frontal view of the chest is obtained. Tip of the left costophrenic angle is exclud ed from [id number]. FINDINGS: The heart size is normal. The pulmonary vasculature is normal. No suspicious infiltrates are evident. IMPRESSION: 1. No acute pulmonary process radiographically evident..
--- NOTE | 2021-07-15 12:10 | P.PN ---
Subjective Progress Note Date: 07/15/21 Principal diagnosis: Acute alcohol withdrawal and influenza A infection 56-year-old male patient, current smoker, with history of COPD, EtOH and marijuana use, presented to the emergency department on 07/08/2021 for evaluation of cough, congestion, dyspnea and fever. Patient tested positive for influenza A, and tested negative for COVID-19 and influenza B. He had a fever of 103 degrees Fahrenheit on presentation. He was tachycardic with a rate of 154, but in sinus mechanism. Chest x-ray showed no active cardiopulmonary disease. Patient was started on Tamiflu, IV steroids, and breathing treatments. However patient was starting to become agitated, and it was suspected that he was going through acute EtOH withdrawal, patient was given multiple doses of IV Ativan, to the point of unresponsiveness, and there was a concern about his airway protection and for that reason she was intubated and placed on mechanical ventilator. He was started on propofol and Versed infusion. He is awaiting a bed in the ICU, he seen in the emergency department. He is sedated and int ubated, he is on assist-control mode of ventilation with a rate of 26, tidal volume 450, FiO2 100% and PEEP of 5, blood gas this morning shows pO2 of greater than 400, pCO2 of 59, and pH of 7.19. This was done on respiratory rate of 24 which was subsequently increased to 26, and FiO2 was dropped down to 40%. His chest x-ray today shows no active cardiopulmonary disease, ET tube 4 cm above the tammy. Today's blood work has been reviewed, with little, is 5.5, hemoglobin is 12.9, serum sodium is 1:30 which is improved from 127 on admission, potassium is 4.2, chloride is 100, BUN is 16, creatinine 0.78. Troponin was 0.0-3, CRP was 5.9, proBNP was 250. Lactic acid was 2.3, patient was given 1, 1/2 L in fluid boluses, currently he is on 0.0 missing a rate of 80 ML per hour, lactic acid has improved and is down to 0.7. Arroyo catheter is in place, patient is producing adequate amount of clear and dilute urine. This morning his fever is controlled, and he is 97.8, blood pressure is 98/71, he is in sinus mechanism with a controlled rate at 85. He is resting comfortably, no evidence of grand mal seizures, he continues on thiamine replacement. On 07/13/2021 patient seen in follow-up in the intensive care unit. Patient was successfully weaned and extubated from mechanical ventilator on 07/10/2021. His alcohol withdrawal symptoms seem to be improving, patient remains on Precedex infusion, which is currently down to 0.8 mics per kilo per hour. Patient has required some intermittent doses of Ativan, required only 2 mg of Ativan last night, in addition to a single dose of morphine yesterday in the afternoon. His resting comfortably, he is drowsy, but he does respond to verbal stimulation, follows simple command. Does not appear to be in any acute distress. Also remains on Cleviprex at 4 mg per hour, and D5 half-normal saline at a rate of 80 ML per hour. Currently on 8 L of oxygen his pulse ox is 96%. Yesterday's chest x-ray was showing COPD, some interstitial densities, and patchy medial right basilar atelectasis versus infiltrate with the possibility of potential pneumonia possibly related to aspiration. Today's lab 7 reviewed showing electrolytes and renal profile within normal limits. Magnesium is 1.7 it is being replaced per protocol. Sputum culture showed Streptococcus pneumonia, blood cultures have been negative. Patient has been started on Levaquin for strep pneumonia. T-max in the last 24 hours was 99.7F, blood pressure is been stable. He is in sinus mechanism with a rate of 77. No nausea vomiting or diarrhea, abdomen is soft. Reevaluated today on 07/14/2021, patient remains in the ICU, remains on 2 L nasal cannula with O2 sat showed 94%, remains on Precedex and this is being weaned down, he is on Cleviprex at 2 mg per hour. Patient is requiring intermittently Ativan and Haldol. But overall the patient is doing much better. Remains on Levaquin. Patient is drowsy, but seems to be a bit more cooperative today compared to the last few days. Sputum was positive for Streptococcus pneumonia, chest x-ray showed minimal bibasilar infiltrates blood cultures have been negative. Patient was reevaluated today on 07/15/2021, patient is doing fairly well, he is off Precedex, remains on antibiotics, remains on Tessalon Perles, patient is also on Ativan as needed, remains on the CIWA protocol. Remains on updrafts, patient had demonstrated significant improvement in the last few days while in the ICU. Hence I plan to transfer the patient out of the ICU to regular medical floor. And possibly consider discharge planning in the next 24-48 hours. Basic metabolic profile today is normal. Patient has intermittent tachycardia and elevated blood pressure, hence I started the patient on metoprolol 25 mg by mouth twice a day Objective - Vital Signs Vital signs: Vital Signs Temp 98.6 F 07/15/21 07:30 Pulse 120 H 07/15/21 11:00 Resp 24 07/15/21 11:32 BP 161/132 07/15/21 11:00 Pulse Ox 99 07/15/21 11:00 Intake & Output 07/14/21 07/15/21 07/15/21 18:59 06:59 18:59 Intake Total 2462.422 1360 400 Output Total 368 540 435 Balance 2094.422 820 -35 Weight 67 kg Intake: IV 2325 1160 400 Dextrose 5%-0.45% NaCl 1, 475 960 400 000 ml @ 80 mls/hr IV . [id number] [facility] Rx#:[id number] Levofloxacin 750Mg-D5w 150 Pmx 750 mg In Dextrose/ Water 1 150ml.bag @ 100 mls/hr IVPB Q24H [facility] Rx#: [id number] Magnesium Sulfate-D5w Pmx 200 1 gm In Dextrose/Water 1 100ml.bag @ 100 mls/hr IVPB Q1H [facility] Rx#: [id number] Potassium Chloride 10 meq 200 In Water For Injection 1 100ml.bag @ 100 mls/hr IVPB Q1H [facility] Rx#: [id number] Potassium Chloride 10 meq 500 In Water For Injection 1 100ml.bag @ 100 mls/hr IVPB Q1HR [facility] Rx#: [id number] Sodium Chloride 0.9% 1, 1000 000 ml @ 999 mls/hr IV . Q1H1M [facility] Rx#:[id number] Intake, IV Titration 137.422 Amount Clevidipine Butyrate 25 28.533 mg In Empty Bag 1 bag @ 1 MG/HR 2 mls/hr IV .Q24H [facility] Rx#:[id number] Dexmedetomidine/0.9% NaCl 108.889 (Pmx) 400 mcg In Empty Bag 1 bag @ 0.4 MCG/KG/HR 7.15 mls/hr IV .Q14H [facility] Rx#:[id number] Oral 200 Output: Urine 368 540 435 Other: Voiding Method Indwelling Catheter Indwelling Catheter Indwelling Catheter # Bowel Movements 1 1 - Exam Physical Exam: Revealed 56-year-old white male, more arousable today, follows simple instructions, not in distress HEENT:[Neck is supple.] [No neck masses.] [No thyromegaly.] [No JVD.] Chest: [Minimal crackles at the bases. No rhonchi and no wheezes. Cardiac Exam: [Normal S1 and S2, no S3 gallop, no murmur.] Abdomen: [Soft, nontender, no megaly, no rebound, no guarding, normal bowel sounds.] Extremities: [No clubbing, no edema, no cyanosis.] Neurological Exam: Lethargic, arousable, does not follow instructions. Psychiatric: Normal mood, flat affect, normal mental status examination, follows simple instructions but rather slow Musculoskeletal: No deformities and no limitation in range of motion. - Labs CBC & Chem 7: 07/14/21 07:00 07/15/21 07:55 Labs: Abnormal Lab Results - Last 24 Hours (Table) 07/15/21 07/15/21 Range/Units 03:27 07:55 POC Glucose (mg/dL) 104 H (75-99) mg/dL Calcium 8.1 L (8.4-10.2) mg/dL Microbiology - Last 24 Hours (Table) 07/08/21 23:17 Blood Culture - Final Blood No Growth after 144 hours Assessment and Plan Assessment: Impression: Acute pneumonia secondary to Streptococcus pneumoniae Acute influenza infection Acute hypercapnic respiratory failure mostly related to sedation, required for alcohol withdrawal symptoms Acute alcohol withdrawal and delirium tremens Hypovolemic hyponatremia, resolved. Underlying chronic obstructive lung disease, inactive at present. Chronic smoker Alcohol abuse Recommendation: Continue antibiotics and/Levaquin. Continue aspiration precautions Continue ciwa protocol. Continue updrafts Transfer patient out of the ICU to a regular medical floor. We'll continue to follow Time with Patient: Less than 30
[2021-07-15] MEDS: HALOPERIDOL LACTATE 5 MG/ML 1 ML VIAL IM PRN (12:24)
[2021-07-15] MEDS: LEVOFLOXACIN 750MG-D5W PMX 750 MG in DEXTROSE/WATER 1 150ML.BAG IVPB SCH (12:40)
[2021-07-15] MEDS: CLEVIDIPINE BUTYRATE 25 MG in EMPTY BAG 1 BAG IV SCH ×2 (13:29→17:21)
[2021-07-15] MEDS ORDERED: DEXMEDETOMIDINE/0.9% NACL(PMX) 400 MCG in EMPTY BAG 1 BAG IV SCH (13:30)
[2021-07-15] MEDS ORDERED: propofoL 100 ML IV ONE (16:07)
[2021-07-15] MEDS ORDERED: CISATRACURIUM 2 MG/ML 5 ML VIAL IV ONE (16:28)
--- NOTE | 2021-07-15 16:39 | XR ---
EXAMINATION TYPE: XR chest 1V portable DATE OF EXAM: 07/15/2021 CLINICAL HISTORY: Difficulty breathing had to be intubated. TECHNIQUE: Single AP portable supine view of the chest is obtained. COMPARISON: Chest x-ray from earlier today and older studies FINDINGS: New Orogastric tube terminates distal esophageal level above the diaphragm and should be a dvanced. There is no endotracheal tube terminating at superior aortic knob level approximately 3 to 4 cm above tammy. Chronic parenchymal changes bilaterally without suspicious new focal airspace opacity, pleural effusi on, or pneumothorax seen. Cardiac silhouette size remains within normal limits. Old fracture deformit y of the right clavicle is redemonstrated. IMPRESSION: 1. New endotracheal tube satisfactory in position. 2. New orogastric tube needs to be advanced roughly 13 cm. 3. Chronic changes without new acute pulmonary process.
[2021-07-15 16:50] LABS: ABG Base Excess 3.3 mmol/L; ABG HCO3 29 mmol/L (21-25); ABG Oxygen Saturation 99.8 % (94-97); ABG PCO2 50 mmHg (35-45); ABG PH 7.37 (7.35-7.45); ABG PO2 393 mmHg (83-108); ABG TCO2 30 mmol/L (19-24)
[2021-07-15 16:55] LABS: Allen Test Performed? no
--- NOTE | 2021-07-15 18:59 | PCN ---
PROCEDURE NOTE PROCEDURE: Right radial arterial line insertion. PREOPERATIVE DIAGNOSIS: Hemodynamic monitoring, hypotension. POSTOPERATIVE DIAGNOSIS: Hemodynamic monitoring, hypotension. PROCEDURE DESCRIPTION: A time-out was completed verifying correct patient, procedure, site, positioning, and implant(s) or special equipment if applicable. Gordon's test was performed to ensure adequate perfusion. The patient's right wrist was prepped and draped in sterile fashion. 1% Lidocaine was used to anesthetize the area. An 18G Arrow arterial line was introduced into the radial artery. The catheter was threaded over the guide wire and the needle was removed with appropriate pulsatile blood return. Blood loss was minimal. The catheter was then sutured in place to the skin and a sterile dressing applied. Perfusion to the extremity distal to the point of catheter insertion was checked and found to be adequate. The patient tolerated the procedure well and there were no immediate complications. MMODL / IJN: [id number] /
--- NOTE | 2021-07-15 19:52 | XR ---
EXAMINATION TYPE: XR chest 1V portable DATE OF EXAM: 07/15/2021 COMPARISON: Same-day HISTORY: Tube placement TECHNIQUE: Single frontal view of the chest is obtained. FINDINGS: There is placement of a nasogastric tube with tip overlying the gastric fundus. The enteri c tube remains in place. No focal air space opacity, pleural effusion, or pneumothorax seen. The car diac silhouette size is within normal limits. The osseous structures are intact. IMPRESSION: Status post support apparatus. Otherwise no acute process.
[2021-07-15] MEDS: CHLORHEXIDINE GLUCONATE 15 ML CUP MUCOUS MEM SCH (20:33)
[2021-07-15 20:43] LABS: Glucose,Whole Blood 156 mg/dL (75-99)
[2021-07-16] MEDS: DEXTROSE 5%-0.45% NACL 1,000 ML IV SCH (02:11)
[2021-07-16 04:59] LABS: HCT 34.6 % (39.0-53.0); MCH 39.5 pg (25.0-35.0); MCHC 32.7 g/dL (31.0-37.0); MCV 120.6 fL (80.0-100.0); Macrocytosis Marked; Mean Platelet Volume 7.8; Platelet Count 513 k/uL (150-450); RBC 2.87 m/uL (4.30-5.90); RDW 14.9 % (11.5-15.5); WBC 10.2 k/uL (3.8-10.6)
[2021-07-16 05:12] LABS: HGB 11.3 gm/dL (13.0-17.5)
[2021-07-16 05:13] LABS: African American GFR (CKD) >90 (>60 ml/min/1.73 sqM); Anion Gap 3 mmol/L; Blood Urea Nitrogen 11 mg/dL (9-20); Calcium 8.1 mg/dL (8.4-10.2); Carbon Dioxide 29 mmol/L (22-30); Chloride 104 mmol/L (98-107); Glucose 144 mg/dL (74-99); Non-African American GFR(CKD) >90 (>60 ml/min/1.73 sqM); Sodium 136 mmol/L (137-145)
[2021-07-16 05:48] LABS: ABG Base Excess 4.3 mmol/L; ABG HCO3 29 mmol/L (21-25); ABG Oxygen Saturation 97.1 % (94-97); ABG PCO2 42 mmHg (35-45); ABG PH 7.44 (7.35-7.45); ABG PO2 92 mmHg (83-108); ABG TCO2 30 mmol/L (19-24)
[2021-07-16 05:50] LABS: Allen Test Performed? no
[2021-07-16 06:10] LABS: Band Neutrophils % 7 %; Lymphocytes # (M) 0.82 k/uL (1.0-4.8); Metamyelocytes # (M) 0.61 k/uL (0); Metamyelocytes % 6 %; Monocytes # (M) 0.71 k/uL (0-1.0); Myelocytes % 2 %; Neutrophils % (M) 72 %; Nucleated Red Blood Cells 0 /100 WBC (0-0); Total Cells Counted 200
--- NOTE | 2021-07-16 07:28 | XR ---
EXAMINATION TYPE: XR chest 1V portable DATE OF EXAM: 07/16/2021 Comparison: 07/15/2021 Clinical History: 56-year-old male Tube placement Findings: ET tube satisfactory. NG tube courses below the diaphragm. Heart normal size. Mild hyperinflation. So me mild stringy atelectasis in the lower lungs. Otherwise, no consolidation or pleural effusion. Old healed fracture deformity right clavicular shaft. Old healed right-sided rib fracture deformity. Impression: There may be underlying COPD. Some mild strandy atelectasis in the lower lungs. Otherwise, no acute p rocess.
[2021-07-16] MEDS: IPRATROPIUM-ALBUTEROL 3 ML NEB INHALATION SCH ×4 (07:44→19:09)
[2021-07-16] MEDS: CHLORHEXIDINE GLUCONATE 15 ML CUP MUCOUS MEM SCH ×2 (08:01→20:01)
[2021-07-16] MEDS: methylPREDNISolone SOD SUCCI 40 MG/ML 1 ML VIAL IV SCH (08:01)
[2021-07-16] MEDS: PANTOPRAZOLE 40 MG/10 ML VIAL IV SCH (08:01)
[2021-07-16] MEDS: LORazepam 2 MG/ML INJ IV PRN ×2 (08:36→21:16)
[2021-07-16] MEDS: METOPROLOL TARTRATE 25 MG TAB PO SCH ×2 (10:53→20:01)
[2021-07-16] MEDS: SODIUM CHLORIDE 0.9% 1,000 ML IV SCH ×2 (10:54→23:58)
--- NOTE | 2021-07-16 13:19 | P.PN ---
Subjective Progress Note Date: 07/16/21 Patient was intubated and sedated yesterday. He was in DTs. Patient currently maxed out on propranolol. He has been requiring when necessary Ativan as well. Objective - Vital Signs Vital signs: Vital Signs Temp 99 F 07/16/21 12:00 Pulse 85 07/16/21 12:00 Resp 26 H 07/16/21 12:00 BP 130/85 07/16/21 11:00 Pulse Ox 94 L 07/16/21 12:00 Intake & Output 07/15/21 07/16/21 07/16/21 18:59 06:59 18:59 Intake Total 9683.867 7239.635 861.156 Output Total 1860 685 460 Balance -663.125 686.635 401.156 Weight 67 kg 69 kg Intake: IV 1110 880 480 Dextrose 5%-0.45% NaCl 1, 960 880 320 000 ml @ 80 mls/hr IV . [id number] JIMENEZ Rx#:[id number] Levofloxacin 750Mg-D5w 150 Pmx 750 mg In Dextrose/ Water 1 150ml.bag @ 100 mls/hr IVPB Q24H JIMENEZ Rx#: [id number] Sodium Chloride 0.9% 1, 160 000 ml @ 80 mls/hr IV . [id number] JIMENEZ Rx#:[id number] Intake, IV Titration 86.875 281.635 192.156 Amount Clevidipine Butyrate 25 10.4 mg In Empty Bag 1 bag @ 2 MG/HR 4 mls/hr IV . [id number] JIMENEZ Rx#:[id number] Dexmedetomidine/0.9% NaCl 31.351 (Pmx) 400 mcg In Empty Bag 1 bag @ 0.2 MCG/KG/HR 3.35 mls/hr IV .Q24H JIMENEZ Rx#:[id number] propofoL 1,000 mg In 45.124 281.635 192.156 Empty Bag 1 bag @ 5 MCG/ KG/MIN 2.01 mls/hr IV . 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 Psych - unable to assess - Labs CBC & Chem 7: 07/16/21 04:38 07/16/21 04:38 Labs: Abnormal Lab Results - Last 24 Hours (Table) 07/15/21 07/15/21 07/16/21 Range/Units 16:48 20:41 04:38 RBC 2.87 L (4.30-5.90) m/uL Hgb 11.3 L D (13.0-17.5) gm/dL Hct 34.6 L (39.0-53.0) % MCV 120.6 H (80.0-100.0) fL MCH 39.5 H (25.0-35.0) pg Plt Count 513 H (150-450) k/uL Neutrophils # (Manual) 8.00 H (1.3-7.7) k/uL Lymphocytes # (Manual) 0.82 L (1.0-4.8) k/uL Metamyelocytes # (Man) 0.61 H (0) k/uL Myelocytes # (Manual) 0.20 H (0) k/uL Macrocytosis Marked A ABG pCO2 50 H (35-45) mmHg ABG pO2 393 H (83-108) mmHg ABG HCO3 29 H (21-25) mmol/L ABG Total CO2 30 H (19-24) mmol/L ABG O2 Saturation 99.8 H (94-97) % Sodium (137-145) mmol/L Creatinine (0.66-1.25) mg/dL Glucose (74-99) mg/dL POC Glucose (mg/dL) 156 H (75-99) mg/dL Calcium (8.4-10.2) mg/dL 07/16/21 07/16/21 Range/Units 04:38 05:45 RBC (4.30-5.90) m/uL Hgb (13.0-17.5) gm/dL Hct (39.0-53.0) % MCV (80.0-100.0) fL MCH (25.0-35.0) pg Plt Count (150-450) k/uL Neutrophils # (Manual) (1.3-7.7) k/uL Lymphocytes # (Manual) (1.0-4.8) k/uL Metamyelocytes # (Man) (0) k/uL Myelocytes # (Manual) (0) k/uL Macrocytosis ABG pCO2 (35-45) mmHg ABG pO2 (83-108) mmHg ABG HCO3 29 H (21-25) mmol/L ABG Total CO2 30 H (19-24) mmol/L ABG O2 Saturation 97.1 H (94-97) % Sodium 136 L (137-145) mmol/L Creatinine 0.65 L (0.66-1.25) mg/dL Glucose 144 H (74-99) mg/dL POC Glucose (mg/dL) (75-99) mg/dL Calcium 8.1 L (8.4-10.2) mg/dL Assessment and Plan Assessment: #Acute pneumonia secondary to Streptococcus pneumonia #Acute influenza infection #Acute hypercapnic respiratory failure #COPD exacerbation #Acute respiratory distress secondary to DTs -Continue Levaquin -Aspiration precautions -Patient intubated on 07/15/2021 for DTs -Resume steroids. Resume breathing treatments #Acute alcohol withdrawal with delirium tremens -Patient currently intubated and sedated #Chronic smoker The patient is admitted with an anticipated greater than 2 midnight stay for evaluation of sepsis, influenza CODE STATUS: Full Code Anticipated discharge date: Depending on clinical course Anticipated discharge place: Home
--- NOTE | 2021-07-16 14:03 | P.PN ---
Subjective Progress Note Date: 07/16/21 Principal diagnosis: Acute alcohol withdrawal and influenza A infection 56-year-old male patient, current smoker, with history of COPD, EtOH and marijuana use, presented to the emergency department on 07/08/2021 for evaluation of cough, congestion, dyspnea and fever. Patient tested positive for influenza A, and tested negative for COVID-19 and influenza B. He had a fever of 103 degrees Fahrenheit on presentation. He was tachycardic with a rate of 154, but in sinus mechanism. Chest x-ray showed no active cardiopulmonary disease. Patient was started on Tamiflu, IV steroids, and breathing treatments. However patient was starting to become agitated, and it was suspected that he was going through acute EtOH withdrawal, patient was given multiple doses of IV Ativan, to the point of unresponsiveness, and there was a concern about his airway protection and for that reason she was intubated and placed on mechanical ventilator. He was started on propofol and Versed infusion. He is awaiting a bed in the ICU, he seen in the emergency department. He is sedated and int ubated, he is on assist-control mode of ventilation with a rate of 26, tidal volume 450, FiO2 100% and PEEP of 5, blood gas this morning shows pO2 of greater than 400, pCO2 of 59, and pH of 7.19. This was done on respiratory rate of 24 which was subsequently increased to 26, and FiO2 was dropped down to 40%. His chest x-ray today shows no active cardiopulmonary disease, ET tube 4 cm above the tammy. Today's blood work has been reviewed, with little, is 5.5, hemoglobin is 12.9, serum sodium is 1:30 which is improved from 127 on admission, potassium is 4.2, chloride is 100, BUN is 16, creatinine 0.78. Troponin was 0.0-3, CRP was 5.9, proBNP was 250. Lactic acid was 2.3, patient was given 1, 1/2 L in fluid boluses, currently he is on 0.0 missing a rate of 80 ML per hour, lactic acid has improved and is down to 0.7. Arroyo catheter is in place, patient is producing adequate amount of clear and dilute urine. This morning his fever is controlled, and he is 97.8, blood pressure is 98/71, he is in sinus mechanism with a controlled rate at 85. He is resting comfortably, no evidence of grand mal seizures, he continues on thiamine replacement. On 07/13/2021 patient seen in follow-up in the intensive care unit. Patient was successfully weaned and extubated from mechanical ventilator on 07/10/2021. His alcohol withdrawal symptoms seem to be improving, patient remains on Precedex infusion, which is currently down to 0.8 mics per kilo per hour. Patient has required some intermittent doses of Ativan, required only 2 mg of Ativan last night, in addition to a single dose of morphine yesterday in the afternoon. His resting comfortably, he is drowsy, but he does respond to verbal stimulation, follows simple command. Does not appear to be in any acute distress. Also remains on Cleviprex at 4 mg per hour, and D5 half-normal saline at a rate of 80 ML per hour. Currently on 8 L of oxygen his pulse ox is 96%. Yesterday's chest x-ray was showing COPD, some interstitial densities, and patchy medial right basilar atelectasis versus infiltrate with the possibility of potential pneumonia possibly related to aspiration. Today's lab 7 reviewed showing electrolytes and renal profile within normal limits. Magnesium is 1.7 it is being replaced per protocol. Sputum culture showed Streptococcus pneumonia, blood cultures have been negative. Patient has been started on Levaquin for strep pneumonia. T-max in the last 24 hours was 99.7F, blood pressure is been stable. He is in sinus mechanism with a rate of 77. No nausea vomiting or diarrhea, abdomen is soft. Reevaluated today on 07/14/2021, patient remains in the ICU, remains on 2 L nasal cannula with O2 sat showed 94%, remains on Precedex and this is being weaned down, he is on Cleviprex at 2 mg per hour. Patient is requiring intermittently Ativan and Haldol. But overall the patient is doing much better. Remains on Levaquin. Patient is drowsy, but seems to be a bit more cooperative today compared to the last few days. Sputum was positive for Streptococcus pneumonia, chest x-ray showed minimal bibasilar infiltrates blood cultures have been negative. Patient was reevaluated today on 07/15/2021, patient is doing fairly well, he is off Precedex, remains on antibiotics, remains on Tessalon Perles, patient is also on Ativan as needed, remains on the CIWA protocol. Remains on updrafts, patient had demonstrated significant improvement in the last few days while in the ICU. Hence I plan to transfer the patient out of the ICU to regular medical floor. And possibly consider discharge planning in the next 24-48 hours. Basic metabolic profile today is normal. Patient has intermittent tachycardia and elevated blood pressure, hence I started the patient on metoprolol 25 mg by mouth twice a day Patient was reevaluated today on 07/16/2021, patient developed worsening symptoms of alcohol withdrawal yesterday, did not improve with multiple medications including Precedex, Haldol, Ativan, and the patient became more and more agitated, hence I recommended intubating the patient and he was placed on m echanical ventilation in the afternoon. Remains on mechanical ventilation his tidal volume is 450 rate is 26 FiO2 is 40% and PEEP of 5. ABG showed a pO2 of 92 pCO2 42 pH of 7.44. Patient is on propofol at 75 mcg/kg/m IV fluid at 80 mL/h. He is on GI and DVT prophylaxis. And is also on enteral feeding as per dietitian's recommendations WBC count is 10.2. Hemoglobin 11.3 electrolytes are normal renal profile is normal, chest x-ray showed COPD and minimal atelectasis in the lower lungs underlying pneumonia is not entirely ruled out Objective - Vital Signs Vital signs: Vital Signs Temp 99 F 07/16/21 12:00 Pulse 85 07/16/21 12:00 Resp 26 H 07/16/21 12:00 BP 130/85 07/16/21 11:00 Pulse Ox 94 L 07/16/21 12:00 Intake & Output 07/15/21 07/16/21 07/16/21 18:59 06:59 18:59 Intake Total 4878.031 5548.635 861.156 Output Total 1860 685 460 Balance -663.125 686.635 401.156 Weight 67 kg 69 kg Intake: IV 1110 880 480 Dextrose 5%-0.45% NaCl 1, 960 880 320 000 ml @ 80 mls/hr IV . [id number] [facility] Rx#:[id number] Levofloxacin 750Mg-D5w 150 Pmx 750 mg In Dextrose/ Water 1 150ml.bag @ 100 mls/hr IVPB Q24H JIMENEZ Rx#: [id number] Sodium Chloride 0.9% 1, 160 000 ml @ 80 mls/hr IV . [id number] JIMENEZ Rx#:[id number] Intake, IV Titration 86.875 281.635 192.156 Amount Clevidipine Butyrate 25 10.4 mg In Empty Bag 1 bag @ 2 MG/HR 4 mls/hr IV . [id number] JIMENEZ Rx#:[id number] Dexmedetomidine/0.9% NaCl 31.351 (Pmx) 400 mcg In Empty Bag 1 bag @ 0.2 MCG/KG/HR 3.35 mls/hr IV .Q24H JIMENEZ Rx#:[id number] propofoL 1,000 mg In 45.124 281.635 192.156 Empty Bag 1 bag @ 5 MCG/ KG/MIN 2.01 mls/hr IV . Q24H JIMENEZ Rx#:[id number] Tube Feeding 180 129 Other 30 60 Output: Urine 1860 685 460 Other: Voiding Method Indwelling Catheter Indwelling Catheter Indwelling Catheter # Bowel Movements 1 ABP, PAP, CO, CI - Last Documented Arterial Blood Pressure 93/43 - Labs CBC & Chem 7: 07/16/21 04:38 07/16/21 04:38 Labs: Abnormal Lab Results - Last 24 Hours (Table) 07/15/21 07/15/21 07/16/21 Range/Units 16:48 20:41 04:38 RBC 2.87 L (4.30-5.90) m/uL Hgb 11.3 L D (13.0-17.5) gm/dL Hct 34.6 L (39.0-53.0) % MCV 120.6 H (80.0-100.0) fL MCH 39.5 H (25.0-35.0) pg Plt Count 513 H (150-450) k/uL Neutrophils # (Manual) 8.00 H (1.3-7.7) k/uL Lymphocytes # (Manual) 0.82 L (1.0-4.8) k/uL Metamyelocytes # (Man) 0.61 H (0) k/uL Myelocytes # (Manual) 0.20 H (0) k/uL Macrocytosis Marked A ABG pCO2 50 H (35-45) mmHg ABG pO2 393 H (83-108) mmHg ABG HCO3 29 H (21-25) mmol/L ABG Total CO2 30 H (19-24) mmol/L ABG O2 Saturation 99.8 H (94-97) % Sodium (137-145) mmol/L Creatinine (0.66-1.25) mg/dL Glucose (74-99) mg/dL POC Glucose (mg/dL) 156 H (75-99) mg/dL Calcium (8.4-10.2) mg/dL 07/16/21 07/16/21 Range/Units 04:38 05:45 RBC (4.30-5.90) m/uL Hgb (13.0-17.5) gm/dL Hct (39.0-53.0) % MCV (80.0-100.0) fL MCH (25.0-35.0) pg Plt Count (150-450) k/uL Neutrophils # (Manual) (1.3-7.7) k/uL Lymphocytes # (Manual) (1.0-4.8) k/uL Metamyelocytes # (Man) (0) k/uL Myelocytes # (Manual) (0) k/uL Macrocytosis ABG pCO2 (35-45) mmHg ABG pO2 (83-108) mmHg ABG HCO3 29 H (21-25) mmol/L ABG Total CO2 30 H (19-24) mmol/L ABG O2 Saturation 97.1 H (94-97) % Sodium 136 L (137-145) mmol/L Creatinine 0.65 L (0.66-1.25) mg/dL Glucose 144 H (74-99) mg/dL POC Glucose (mg/dL) (75-99) mg/dL Calcium 8.1 L (8.4-10.2) mg/dL Assessment and Plan Assessment: Impression: Acute hypoxic respiratory failure, multifactorial, but this time the patient was reintubated mostly 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 Acute pneumonia secondary to Streptococcus pneumoniae Acute influenza infection Acute hypercapnic respiratory failure mostly related to sedation, required for alcohol withdrawal symptoms Acute alcohol withdrawal and delirium tremens Hypovolemic hyponatremia, resolved. Underlying chronic obstructive lung disease, inactive at present. Chronic smoker Alcohol abuse Recommendation: Continue ventilatory support Continue nutritional support/enteral feeding Continue GI and DVT prophylaxis Continue antibiotics and/Levaquin. Continue aspiration precautions Continue propofol and titrate accordingly Continue [facility] Patient will remain in the ICU Prognosis is guarded Critical care time is over 30 minutes Time with Patient: Greater than 30
[2021-07-16] MEDS: LEVOFLOXACIN 750MG-D5W PMX 750 MG in DEXTROSE/WATER 1 150ML.BAG IVPB SCH (14:09)
[2021-07-16] MEDS: CLEVIDIPINE BUTYRATE 25 MG in EMPTY BAG 1 BAG IV SCH (14:25)
[2021-07-16] MEDS: HEPARIN SODIUM,PORCINE/PF 5,000 UNIT/0.5 ML SYRINGE SQ SCH ×2 (16:11→23:59)
[2021-07-16] MEDS: MIDAZOLAM HCL 50 MG in SODIUM CHLORIDE 0.9% 40 ML IV SCH (23:06)
[2021-07-17 00:12] LABS: Glucose,Whole Blood 92 mg/dL (75-99)
[2021-07-17] MEDS: CLEVIDIPINE BUTYRATE 25 MG in EMPTY BAG 1 BAG IV SCH ×2 (03:10→05:05)
[2021-07-17] MEDS: MIDAZOLAM HCL 50 MG in SODIUM CHLORIDE 0.9% 40 ML IV SCH (04:04)
[2021-07-17 05:22] LABS: African American GFR (CKD) >90 (>60 ml/min/1.73 sqM); Anion Gap 2 mmol/L; Blood Urea Nitrogen 10 mg/dL (9-20); Calcium 8.5 mg/dL (8.4-10.2); Carbon Dioxide 28 mmol/L (22-30); Chloride 111 mmol/L (98-107); Glucose 105 mg/dL (74-99); Non-African American GFR(CKD) >90 (>60 ml/min/1.73 sqM); Potassium 3.5 mmol/L (3.5-5.1); Sodium 141 mmol/L (137-145)
[2021-07-17] MEDS: POTASSIUM BICARBONATE/CIT AC 20 MEQ TABLET.EFF NG-TUBE SCH ×2 (05:39→06:31)
[2021-07-17 05:42] LABS: ABG Base Excess 4.8 mmol/L; ABG HCO3 29 mmol/L (21-25); ABG Oxygen Saturation 93.9 % (94-97); ABG PCO2 40 mmHg (35-45); ABG PH 7.46 (7.35-7.45); ABG PO2 68 mmHg (83-108); ABG TCO2 30 mmol/L (19-24)
[2021-07-17 05:46] LABS: Allen Test Performed? No
--- NOTE | 2021-07-17 07:08 | XR ---
EXAMINATION TYPE: XR chest 1V portable DATE OF EXAM: 07/17/2021 COMPARISON: 07/16/2021 HISTORY: SOB, Follow Up FINDINGS: Indwelling tubes and catheters are unchanged. No infiltrates are seen. No evidence for atelectasis or effusion. Stable appearance of the cardio-mediastinal structures at this time. IMPRESSION: 1. Stable portable chest. Clinical correlation and follow up until resolution is recommended.
[2021-07-17] MEDS: PANTOPRAZOLE 40 MG/10 ML VIAL IV SCH (08:15)
[2021-07-17] MEDS: HEPARIN SODIUM,PORCINE/PF 5,000 UNIT/0.5 ML SYRINGE SQ SCH ×2 (08:15→18:04)
[2021-07-17] MEDS: SODIUM CHLORIDE 0.9% 1,000 ML IV SCH ×2 (08:15→23:01)
[2021-07-17] MEDS: CHLORHEXIDINE GLUCONATE 15 ML CUP MUCOUS MEM SCH ×2 (08:15→20:30)
[2021-07-17] MEDS: methylPREDNISolone SOD SUCCI 40 MG/ML 1 ML VIAL IV SCH (08:15)
[2021-07-17 08:33] LABS: Anisocytosis Slight; HCT 31.8 % (39.0-53.0); HGB 10.6 gm/dL (13.0-17.5); MCHC 33.4 g/dL (31.0-37.0); MCV 122.7 fL (80.0-100.0); Macrocytosis Marked; Mean Platelet Volume 7.7; Platelet Count 582 k/uL (150-450); RBC 2.59 m/uL (4.30-5.90); RDW 16.1 % (11.5-15.5); WBC 8.2 k/uL (3.8-10.6)
[2021-07-17] MEDS: IPRATROPIUM-ALBUTEROL 3 ML NEB INHALATION SCH ×4 (08:41→20:44)
[2021-07-17] MEDS ORDERED: POTASSIUM BICARBONATE/CIT AC 20 MEQ TABLET.EFF NG-TUBE SCH (09:00)
--- NOTE | 2021-07-17 11:00 | XR ---
EXAMINATION TYPE: XR chest 1V portable DATE OF EXAM: 07/17/2021 COMPARISON: NONE HISTORY: SOB, Follow Up FINDINGS: Right IJ central venous line with its distal tip overlying the SVC. No evidence for pneumothorax. End otracheal tube and NG tube are in place. The lungs are clear without definite infiltrate. There may be atelectasis right medial lung base. Stable appearance of the cardio-mediastinal structures at this time. IMPRESSION: 1. As above
--- NOTE | 2021-07-17 11:29 | OP ---
OPERATIVE REPORT OPERATIVE REPORT: Placement of right internal jugular triple-lumen catheter. PREOPERATIVE DIAGNOSIS: Acute hypoxic respiratory failure secondary to alcohol withdrawal and delirium tremens. POSTOPERATIVE DIAGNOSIS: Acute hypoxic respiratory failure secondary to alcohol withdrawal and delirium tremens. ANESTHESIA USED: Two mL of 1% lidocaine. PROCEDURE DESCRIPTION: The patient was placed in a supine position. The right cervical region was prepared in a sterile fashion and drapes were applied. Using the posterior approach, the area was locally anesthetized, then the right IJ was easily cannulated. A guidewire was placed. Area around the guidewire was dilated and then a triple-lumen catheter was inserted over the guidewire. The guidewire was removed. There was good blood flow in the three different ports of the triple-lumen catheter. Line was secured with 3.0 silk sutures. Chest x-ray postoperatively showed adequate placement and no complications. [id number] / HAMIDAN: [id number] /
[2021-07-17 11:57] LABS: Glucose,Whole Blood 130 mg/dL (75-99)
[2021-07-17] MEDS: LEVOFLOXACIN 750MG-D5W PMX 750 MG in DEXTROSE/WATER 1 150ML.BAG IVPB SCH (12:18)
--- NOTE | 2021-07-17 13:06 | P.PN ---
Subjective Progress Note Date: 07/17/21 Patient remains intubated and sedated. He is currently on propofol for sedation. He was started on Versed last night but became bradycardic. We'll send was discontinued. Bradycardia has resolved. Objective - Vital Signs Vital signs: Vital Signs Temp 97.7 F 07/17/21 12:00 Pulse 79 07/17/21 12:00 Resp 26 H 07/17/21 12:00 BP 128/80 07/17/21 11:00 Pulse Ox 98 07/17/21 12:00 Intake & Output 07/16/21 07/17/21 07/17/21 18:59 06:59 18:59 Intake Total 4483.493 1591.402 661.308 Output Total 1270 990 150 Balance 588.148 666.402 511.308 Weight 69 kg 69.8 kg 69.8 kg Intake: IV 1110 880 480 Dextrose 5%-0.45% NaCl 1, 320 000 ml @ 80 mls/hr IV . [id number] JIMENEZ Rx#:[id number] Levofloxacin 750Mg-D5w 150 Pmx 750 mg In Dextrose/ Water 1 150ml.bag @ 100 mls/hr IVPB Q24H JIMENEZ Rx#: [id number] Sodium Chloride 0.9% 1, 640 880 480 000 ml @ 80 mls/hr IV . [id number] JIMENEZ Rx#:[id number] Intake, IV Titration 391.148 410.402 135.308 Amount Clevidipine Butyrate 25 2.668 0.133 mg In Empty Bag 1 bag @ 2 MG/HR 4 mls/hr IV . [id number] JIMENEZ Rx#:[id number] Midazolam HCl 50 mg In 29.049 Sodium Chloride 0.9% 40 ml @ 1 MG/HR 1 mls/hr IV .Q24H JIMENEZ Rx#:[id number] propofoL 1,000 mg In 391.148 378.685 135.175 Empty Bag 1 bag @ 5 MCG/ KG/MIN 2.01 mls/hr IV . 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 - Labs CBC & Chem 7: 07/17/21 08:10 07/17/21 08:10 Labs: Abnormal Lab Results - Last 24 Hours (Table) 07/17/21 07/17/21 07/17/21 Range/Units 04:53 05:23 08:10 RBC 2.59 L (4.30-5.90) m/uL Hgb 10.6 L (13.0-17.5) gm/dL Hct 31.8 L (39.0-53.0) % MCV 122.7 H (80.0-100.0) fL MCH 41.0 H (25.0-35.0) pg RDW 16.1 H (11.5-15.5) % Plt Count 582 H (150-450) k/uL Macrocytosis Marked A ABG pH 7.46 H (7.35-7.45) ABG pO2 68 L (83-108) mmHg ABG HCO3 29 H (21-25) mmol/L ABG Total CO2 30 H (19-24) mmol/L ABG O2 Saturation 93.9 L (94-97) % Chloride 111 H (98-107) mmol/L Creatinine 0.62 L (0.66-1.25) mg/dL Glucose 105 H (74-99) mg/dL POC Glucose (mg/dL) (75-99) mg/dL 07/17/21 Range/Units 11:54 RBC (4.30-5.90) m/uL Hgb (13.0-17.5) gm/dL Hct (39.0-53.0) % MCV (80.0-100.0) fL MCH (25.0-35.0) pg RDW (11.5-15.5) % Plt Count (150-450) k/uL Macrocytosis ABG pH (7.35-7.45) ABG pO2 (83-108) mmHg ABG HCO3 (21-25) mmol/L ABG Total CO2 (19-24) mmol/L ABG O2 Saturation (94-97) % Chloride (98-107) mmol/L Creatinine (0.66-1.25) mg/dL Glucose (74-99) mg/dL POC Glucose (mg/dL) 130 H (75-99) mg/dL Microbiology - Last 24 Hours (Table) 07/16/21 23:02 Sputum Culture - Preliminary Sputum Assessment and Plan Assessment: #Acute pneumonia secondary to Streptococcus pneumonia #Acute influenza infection #Acute hypercapnic respiratory failure #COPD exacerbation #Acute respiratory distress secondary to DTs -Continue Levaquin -Aspiration precautions -Patient intubated on 07/15/2021 for DTs -Resume steroids. Resume breathing treatments -Wean sedation as tolerated -ICU management #Acute alcohol withdrawal with delirium tremens -Patient currently intubated and sedated #Chronic smoker The patient is admitted with an anticipated greater than 2 midnight stay for evaluation of sepsis, influenza CODE STATUS: Full Code Anticipated discharge date: Depending on clinical course Anticipated discharge place: Home
--- NOTE | 2021-07-17 14:23 | P.PN ---
Subjective Progress Note Date: 07/17/21 Principal diagnosis: Acute alcohol withdrawal and influenza A infection 56-year-old male patient, current smoker, with history of COPD, EtOH and marijuana use, presented to the emergency department on 07/08/2021 for evaluation of cough, congestion, dyspnea and fever. Patient tested positive for influenza A, and tested negative for COVID-19 and influenza B. He had a fever of 103 degrees Fahrenheit on presentation. He was tachycardic with a rate of 154, but in sinus mechanism. Chest x-ray showed no active cardiopulmonary disease. Patient was started on Tamiflu, IV steroids, and breathing treatments. However patient was starting to become agitated, and it was suspected that he was going through acute EtOH withdrawal, patient was given multiple doses of IV Ativan, to the point of unresponsiveness, and there was a concern about his airway protection and for that reason she was intubated and placed on mechanical ventilator. He was started on propofol and Versed infusion. He is awaiting a bed in the ICU, he seen in the emergency department. He is sedated and int ubated, he is on assist-control mode of ventilation with a rate of 26, tidal volume 450, FiO2 100% and PEEP of 5, blood gas this morning shows pO2 of greater than 400, pCO2 of 59, and pH of 7.19. This was done on respiratory rate of 24 which was subsequently increased to 26, and FiO2 was dropped down to 40%. His chest x-ray today shows no active cardiopulmonary disease, ET tube 4 cm above the tammy. Today's blood work has been reviewed, with little, is 5.5, hemoglobin is 12.9, serum sodium is 1:30 which is improved from 127 on admission, potassium is 4.2, chloride is 100, BUN is 16, creatinine 0.78. Troponin was 0.0-3, CRP was 5.9, proBNP was 250. Lactic acid was 2.3, patient was given 1, 1/2 L in fluid boluses, currently he is on 0.0 missing a rate of 80 ML per hour, lactic acid has improved and is down to 0.7. Arroyo catheter is in place, patient is producing adequate amount of clear and dilute urine. This morning his fever is controlled, and he is 97.8, blood pressure is 98/71, he is in sinus mechanism with a controlled rate at 85. He is resting comfortably, no evidence of grand mal seizures, he continues on thiamine replacement. On 07/13/2021 patient seen in follow-up in the intensive care unit. Patient was successfully weaned and extubated from mechanical ventilator on 07/10/2021. His alcohol withdrawal symptoms seem to be improving, patient remains on Precedex infusion, which is currently down to 0.8 mics per kilo per hour. Patient has required some intermittent doses of Ativan, required only 2 mg of Ativan last night, in addition to a single dose of morphine yesterday in the afternoon. His resting comfortably, he is drowsy, but he does respond to verbal stimulation, follows simple command. Does not appear to be in any acute distress. Also remains on Cleviprex at 4 mg per hour, and D5 half-normal saline at a rate of 80 ML per hour. Currently on 8 L of oxygen his pulse ox is 96%. Yesterday's chest x-ray was showing COPD, some interstitial densities, and patchy medial right basilar atelectasis versus infiltrate with the possibility of potential pneumonia possibly related to aspiration. Today's lab 7 reviewed showing electrolytes and renal profile within normal limits. Magnesium is 1.7 it is being replaced per protocol. Sputum culture showed Streptococcus pneumonia, blood cultures have been negative. Patient has been started on Levaquin for strep pneumonia. T-max in the last 24 hours was 99.7F, blood pressure is been stable. He is in sinus mechanism with a rate of 77. No nausea vomiting or diarrhea, abdomen is soft. Reevaluated today on 07/14/2021, patient remains in the ICU, remains on 2 L nasal cannula with O2 sat showed 94%, remains on Precedex and this is being weaned down, he is on Cleviprex at 2 mg per hour. Patient is requiring intermittently Ativan and Haldol. But overall the patient is doing much better. Remains on Levaquin. Patient is drowsy, but seems to be a bit more cooperative today compared to the last few days. Sputum was positive for Streptococcus pneumonia, chest x-ray showed minimal bibasilar infiltrates blood cultures have been negative. Patient was reevaluated today on 07/15/2021, patient is doing fairly well, he is off Precedex, remains on antibiotics, remains on Tessalon Perles, patient is also on Ativan as needed, remains on the CIWA protocol. Remains on updrafts, patient had demonstrated significant improvement in the last few days while in the ICU. Hence I plan to transfer the patient out of the ICU to regular medical floor. And possibly consider discharge planning in the next 24-48 hours. Basic metabolic profile today is normal. Patient has intermittent tachycardia and elevated blood pressure, hence I started the patient on metoprolol 25 mg by mouth twice a day Patient was reevaluated today on 07/16/2021, patient developed worsening symptoms of alcohol withdrawal yesterday, did not improve with multiple medications including Precedex, Haldol, Ativan, and the patient became more and more agitated, hence I recommended intubating the patient and he was placed on m echanical ventilation in the afternoon. Remains on mechanical ventilation his tidal volume is 450 rate is 26 FiO2 is 40% and PEEP of 5. ABG showed a pO2 of 92 pCO2 42 pH of 7.44. Patient is on propofol at 75 mcg/kg/m IV fluid at 80 mL/h. He is on GI and DVT prophylaxis. And is also on enteral feeding as per dietitian's recommendations WBC count is 10.2. Hemoglobin 11.3 electrolytes are normal renal profile is normal, chest x-ray showed COPD and minimal atelectasis in the lower lungs underlying pneumonia is not entirely ruled out Reevaluated today on 07/17/21, patient remains in the ICU, patient remains intubated and mechanically ventilated. He is on assist control rate of 26 tidal volume 450 FiO2 50% PEEP of 5. ABG showed a pO2 of 68 pCO2 of 40 pH of 7.46. Patient is on propofol at 75 mcg/kg/m, he is on IV fluid at 80 mL/h 0.9 normal saline, he is on vital a PE at 23 mL per hour. Hemodynamically the patient is stable, he was on Cleviprex yesterday which has been discontinued, his metoprolol has been discontinued because of bradycardia overnight. Patient is in sinus rhythm, not in any distress, sedated, and his chest x-ray today showed no evidence of infiltrate, may be a right medial lung atelectasis. Right IJ central line was placed in his patient today, and follow-up chest x-ray was basically unremarkable. WBC count is 8.2 hemoglobin is 10.6. Basic metabolic profile is normal renal profile is normal Objective - Vital Signs Vital signs: Vital Signs Temp 97.7 F 07/17/21 12:00 Pulse 79 07/17/21 14:00 Resp 26 H 07/17/21 14:00 BP 120/77 07/17/21 14:00 Pulse Ox 100 07/17/21 14:00 Intake & Output 07/16/21 07/17/21 07/17/21 18:59 06:59 18:59 Intake Total 5233.208 5810.402 1008.308 Output Total 1270 990 350 Balance 588.148 666.402 658.308 Weight 69 kg 69.8 kg 69.8 kg Intake: IV 1110 880 640 Dextrose 5%-0.45% NaCl 1, 320 000 ml @ 80 mls/hr IV . [id number] JIMENEZ Rx#:[id number] Levofloxacin 750Mg-D5w 150 Pmx 750 mg In Dextrose/ Water 1 150ml.bag @ 100 mls/hr IVPB Q24H JIMENEZ Rx#: [id number] Sodium Chloride 0.9% 1, 640 880 640 000 ml @ 80 mls/hr IV . [id number] JIMENEZ Rx#:[id number] Intake, IV Titration 391.148 410.402 285.308 Amount Clevidipine Butyrate 25 2.668 0.133 mg In Empty Bag 1 bag @ 2 MG/HR 4 mls/hr IV . [id number] JIMENEZ Rx#:[id number] Levofloxacin 750Mg-D5w 150 Pmx 750 mg In Dextrose/ Water 1 150ml.bag @ 100 mls/hr IVPB Q24H JIMENEZ Rx#: [id number] Midazolam HCl 50 mg In 29.049 Sodium Chloride 0.9% 40 ml @ 1 MG/HR 1 mls/hr IV .Q24H JIMENEZ Rx#:[id number] propofoL 1,000 mg In 391.148 378.685 135.175 Empty Bag 1 bag @ 5 MCG/ KG/MIN 2.01 mls/hr IV . Q24H JIMENEZ Rx#:[id number] Tube Feeding 267 276 83 Other 90 90 Output: Urine 1270 990 350 Other: Voiding Method Indwelling Catheter Indwelling Catheter Indwelling Catheter ABP, PAP, CO, CI - Last Documented Arterial Blood Pressure 148/76 - Exam Physical Exam: Revealed 56-year-old white male, sedated, not in distress. HEENT:[Neck is supple.] [No neck masses.] [No thyromegaly.] [No JVD.] Chest: [Clear breath sounds bilaterally no crackles or rhonchi or wheezes Cardiac Exam: [Normal S1 and S2, no S3 gallop, no murmur.] Abdomen: [Soft, nontender, no megaly, no rebound, no guarding, normal bowel sounds.] Extremities: [No clubbing, no edema, no cyanosis.] Neurological Exam: Could not assess, patient is sedated. Psychiatric: Could not assess, patient is sedated, on propofol Musculoskeletal: No deformities and no limitation in range of motion. - Labs CBC & Chem 7: 07/17/21 08:10 07/17/21 08:10 Labs: Abnormal Lab Results - Last 24 Hours (Table) 07/17/21 07/17/21 07/17/21 Range/Units 04:53 05:23 08:10 RBC 2.59 L (4.30-5.90) m/uL Hgb 10.6 L (13.0-17.5) gm/dL Hct 31.8 L (39.0-53.0) % MCV 122.7 H (80.0-100.0) fL MCH 41.0 H (25.0-35.0) pg RDW 16.1 H (11.5-15.5) % Plt Count 582 H (150-450) k/uL Macrocytosis Marked A ABG pH 7.46 H (7.35-7.45) ABG pO2 68 L (83-108) mmHg ABG HCO3 29 H (21-25) mmol/L ABG Total CO2 30 H (19-24) mmol/L ABG O2 Saturation 93.9 L (94-97) % Chloride 111 H (98-107) mmol/L Creatinine 0.62 L (0.66-1.25) mg/dL Glucose 105 H (74-99) mg/dL POC Glucose (mg/dL) (75-99) mg/dL 07/17/21 Range/Units 11:54 RBC (4.30-5.90) m/uL Hgb (13.0-17.5) gm/dL Hct (39.0-53.0) % MCV (80.0-100.0) fL MCH (25.0-35.0) pg RDW (11.5-15.5) % Plt Count (150-450) k/uL Macrocytosis ABG pH (7.35-7.45) ABG pO2 (83-108) mmHg ABG HCO3 (21-25) mmol/L ABG Total CO2 (19-24) mmol/L ABG O2 Saturation (94-97) % Chloride (98-107) mmol/L Creatinine (0.66-1.25) mg/dL Glucose (74-99) mg/dL POC Glucose (mg/dL) 130 H (75-99) mg/dL Microbiology - Last 24 Hours (Table) 07/16/21 23:02 Sputum Culture - Preliminary Sputum Assessment and Plan Assessment: Impression: Acute hypoxic respiratory failure, multifactorial, but this time the patient was reintubated mostly 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 Acute pneumonia secondary to Streptococcus pneumoniae, chest x-ray has cleared. Acute influenza infection Acute hypercapnic respiratory failure mostly related to sedation, required for alcohol withdrawal symptoms Acute alcohol withdrawal and delirium tremens Hypovolemic hyponatremia, resolved. Underlying chronic obstructive lung disease, inactive at present. Chronic smoker Alcohol abuse Recommendation: Continue ventilatory support Continue nutritional support/enteral feeding Continue GI and DVT prophylaxis Continue antibiotics and/Levaquin. Continue aspiration precautions Continue propofol and titrate accordingly Continue updrafts Not ready for weaning, we will assess mental status off sedation in the next 24 hours Patient will remain in the ICU Prognosis is guarded Critical care time is over 30 minutes, not including the time spent on procedures Time with Patient: Greater than 30
[2021-07-17 18:43] LABS: Glucose,Whole Blood 112 mg/dL (75-99)
[2021-07-18] MEDS: HEPARIN SODIUM,PORCINE/PF 5,000 UNIT/0.5 ML SYRINGE SQ SCH ×3 (00:33→15:48)
[2021-07-18] MEDS: LORazepam 2 MG/ML INJ IV PRN ×6 (00:34→17:45)
[2021-07-18] MEDS: CLEVIDIPINE BUTYRATE 25 MG in EMPTY BAG 1 BAG IV SCH ×3 (05:03→22:16)
[2021-07-18 05:36] LABS: Glucose,Whole Blood 110 mg/dL (75-99)
[2021-07-18 05:44] LABS: Basophils # (A) 0.1 k/uL (0-0.2); Basophils % (A) 1 %; Eosinophils % (A) 0 %; HCT 34.6 % (39.0-53.0); HGB 11.2 gm/dL (13.0-17.5); Lymphocytes # (A) 1.7 k/uL (1.0-4.8); Lymphocytes % (A) 12 %; MCH 38.9 pg (25.0-35.0); MCHC 32.3 g/dL (31.0-37.0); MCV 120.6 fL (80.0-100.0); Macrocytosis Marked; Mean Platelet Volume 7.7; Monocytes # (A) 0.9 k/uL (0-1.0); Monocytes % (A) 6 %; Neutrophils # (A) 11.7 k/uL (1.3-7.7); Neutrophils % (A) 80 %; Platelet Count 702 k/uL (150-450); RBC 2.87 m/uL (4.30-5.90); RDW 15.2 % (11.5-15.5); WBC 14.6 k/uL (3.8-10.6)
[2021-07-18 05:54] LABS: ALT 33 U/L (4-49); AST 36 U/L (17-59); African American GFR (CKD) >90 (>60 ml/min/1.73 sqM); Albumin 3.3 g/dL (3.5-5.0); Alkaline Phosphatase 281 U/L (38-126); Anion Gap 4 mmol/L; Blood Urea Nitrogen 12 mg/dL (9-20); Calcium 8.6 mg/dL (8.4-10.2); Carbon Dioxide 29 mmol/L (22-30); Chloride 107 mmol/L (98-107); Glucose 109 mg/dL (74-99); Non-African American GFR(CKD) >90 (>60 ml/min/1.73 sqM); Potassium 3.7 mmol/L (3.5-5.1); Sodium 140 mmol/L (137-145); Total Bilirubin 0.3 mg/dL (0.2-1.3); Total Protein 6.2 g/dL (6.3-8.2)
--- NOTE | 2021-07-18 06:13 | XR ---
EXAMINATION TYPE: XR chest 1V portable DATE OF EXAM: 07/18/2021 CLINICAL HISTORY: Difficulty breathing progress study. TECHNIQUE: Single AP portable semiupright view of the chest is obtained. COMPARISON: Chest x-ray from one day earlier and older studies. FINDINGS: Stable endotracheal and orogastric tubes. Stable right internal jugular central venous cat heter. Current study is suboptimal as entire right lung base not included. Visualized lungs are grossly annie ar. Cardiac silhouette size remains within normal limits. Old malunited fracture right mid clavicle r edemonstrated. IMPRESSION: No acute pulmonary process. No significant change from one day earlier.
[2021-07-18 06:16] LABS: ABG Base Excess 6.7 mmol/L; ABG HCO3 30 mmol/L (21-25); ABG Oxygen Saturation 92.3 % (94-97); ABG PCO2 39 mmHg (35-45); ABG PH 7.49 (7.35-7.45); ABG PO2 63 mmHg (83-108); ABG TCO2 31 mmol/L (19-24); Allen Test Performed? Yes
[2021-07-18] MEDS: IPRATROPIUM-ALBUTEROL 3 ML NEB INHALATION SCH ×4 (07:19→21:06)
[2021-07-18] MEDS ORDERED: POTASSIUM BICARBONATE/CIT AC 20 MEQ TABLET.EFF NG-TUBE SCH (08:00)
[2021-07-18] MEDS: CHLORHEXIDINE GLUCONATE 15 ML CUP MUCOUS MEM SCH ×2 (09:12→20:16)
[2021-07-18] MEDS: methylPREDNISolone SOD SUCCI 40 MG/ML 1 ML VIAL IV SCH (09:13)
--- NOTE | 2021-07-18 11:07 | P.PN ---
Subjective Progress Note Date: 07/18/21 Patient remains intubated and sedated. He is on propofol at 75 mL an hour. Objective - Vital Signs Vital signs: Vital Signs Temp 100.7 F H 07/18/21 07:50 Pulse 110 H 07/18/21 10:00 Resp 26 H 07/18/21 10:00 BP 138/86 07/18/21 07:00 Pulse Ox 97 07/18/21 10:00 Intake & Output 07/17/21 07/18/21 07/18/21 18:59 06:59 18:59 Intake Total 4671.042 8879.6 664.800 Output Total 635 1345 1110 Balance 865.668 525.6 -445.200 Weight 69.8 kg 70.5 kg Intake: IV 960 960 326 Pressure Bag (0.9 Sodium 6 Chloride) Sodium Chloride 0.9% 1, 960 960 320 000 ml @ 80 mls/hr IV . [id number] JIMENEZ Rx#:[id number] Intake, IV Titration 457.668 339.6 160.800 Amount Clevidipine Butyrate 25 0.133 39.6 mg In Empty Bag 1 bag @ 2 MG/HR 4 mls/hr IV . [id number] JIMENEZ Rx#:[id number] Levofloxacin 750Mg-D5w 150 Pmx 750 mg In Dextrose/ Water 1 150ml.bag @ 100 mls/hr IVPB Q24H JIMENEZ Rx#: [id number] propofoL 1,000 mg In 307.535 300 160.800 Empty Bag 1 bag @ 5 MCG/ KG/MIN 2.01 mls/hr IV . Q24H JIMENEZ Rx#:[id number] Tube Feeding 83 481 148 Other 90 30 Output: Urine 635 1345 1110 Other: Voiding Method Indwelling Catheter Indwelling Catheter Indwelling Catheter ABP, PAP, CO, CI - Last Documented Arterial Blood Pressure 148/69 - Exam General examination -intubated and sedated Heart - + S1S2 no murmurs Lungs -mild wheezing with rhonchi throughout Abdomen soft NT ND +ve BS Extremities - No edema METAL COATER - unable to assess Psych - unable to assess - Labs CBC & Chem 7: 07/18/21 05:36 07/18/21 05:36 Labs: Abnormal Lab Results - Last 24 Hours (Table) 07/17/21 07/17/2107/18/22 Range/Units 11:54 18:40 05:34 WBC (3.8-10.6) k/uL RBC (4.30-5.90) m/uL Hgb (13.0-17.5) gm/dL Hct (39.0-53.0) % MCV (80.0-100.0) fL MCH (25.0-35.0) pg Plt Count (150-450) k/uL Neutrophils # (1.3-7.7) k/uL Macrocytosis ABG pH (7.35-7.45) ABG pO2 (83-108) mmHg ABG HCO3 (21-25) mmol/L ABG Total CO2 (19-24) mmol/L ABG O2 Saturation (94-97) % Glucose (74-99) mg/dL POC Glucose (mg/dL) 130 H 112 H 110 H (75-99) mg/dL Alkaline Phosphatase (38-126) U/L Total Protein (6.3-8.2) g/dL Albumin (3.5-5.0) g/dL 07/18/21 07/18/21 07/18/21 Range/Units 05:36 05:36 06:11 WBC 14.6 H (3.8-10.6) k/uL RBC 2.87 L (4.30-5.90) m/uL Hgb 11.2 L (13.0-17.5) gm/dL Hct 34.6 L (39.0-53.0) % MCV 120.6 H (80.0-100.0) fL MCH 38.9 H (25.0-35.0) pg Plt Count 702 H (150-450) k/uL Neutrophils # 11.7 H (1.3-7.7) k/uL Macrocytosis Marked A ABG pH 7.49 H (7.35-7.45) ABG pO2 63 L (83-108) mmHg ABG HCO3 30 H (21-25) mmol/L ABG Total CO2 31 H (19-24) mmol/L ABG O2 Saturation 92.3 L (94-97) % Glucose 109 H (74-99) mg/dL POC Glucose (mg/dL) (75-99) mg/dL Alkaline Phosphatase 281 H (38-126) U/L Total Protein 6.2 L (6.3-8.2) g/dL Albumin 3.3 L (3.5-5.0) g/dL Microbiology - Last 24 Hours (Table) 07/16/21 23:02 Gram Stain - Preliminary Sputum Sputum Culture - Preliminary Assessment and Plan Assessment: #Acute pneumonia secondary to Streptococcus pneumonia #Acute influenza infection #Acute hypercapnic respiratory failure #COPD exacerbation #Acute respiratory distress secondary to DTs -Continue Levaquin -Aspiration precautions -Patient intubated on 07/15/2021 for DTs -Resume steroids. Resume breathing treatments -Wean sedation as tolerated -ICU management #Acute alcohol withdrawal with delirium tremens -Patient currently intubated and sedated #Chronic smoker The patient is admitted with an anticipated greater than 2 midnight stay for evaluation of sepsis, influenza CODE STATUS: Full Code Anticipated discharge date: Depending on clinical course Anticipated discharge place: Home
--- NOTE | 2021-07-18 11:17 | P.PN ---
Subjective Progress Note Date: 07/18/21 Principal diagnosis: Acute alcohol withdrawal and influenza A infection 56-year-old male patient, current smoker, with history of COPD, EtOH and marijuana use, presented to the emergency department on 07/08/2021 for evaluation of cough, congestion, dyspnea and fever. Patient tested positive for influenza A, and tested negative for COVID-19 and influenza B. He had a fever of 103 degrees Fahrenheit on presentation. He was tachycardic with a rate of 154, but in sinus mechanism. Chest x-ray showed no active cardiopulmonary disease. Patient was started on Tamiflu, IV steroids, and breathing treatments. However patient was starting to become agitated, and it was suspected that he was going through acute EtOH withdrawal, patient was given multiple doses of IV Ativan, to the point of unresponsiveness, and there was a concern about his airway protection and for that reason she was intubated and placed on mechanical ventilator. He was started on propofol and Versed infusion. He is awaiting a bed in the ICU, he seen in the emergency department. He is sedated and int ubated, he is on assist-control mode of ventilation with a rate of 26, tidal volume 450, FiO2 100% and PEEP of 5, blood gas this morning shows pO2 of greater than 400, pCO2 of 59, and pH of 7.19. This was done on respiratory rate of 24 which was subsequently increased to 26, and FiO2 was dropped down to 40%. His chest x-ray today shows no active cardiopulmonary disease, ET tube 4 cm above the tammy. Today's blood work has been reviewed, with little, is 5.5, hemoglobin is 12.9, serum sodium is 1:30 which is improved from 127 on admission, potassium is 4.2, chloride is 100, BUN is 16, creatinine 0.78. Troponin was 0.0-3, CRP was 5.9, proBNP was 250. Lactic acid was 2.3, patient was given 1, 1/2 L in fluid boluses, currently he is on 0.0 missing a rate of 80 ML per hour, lactic acid has improved and is down to 0.7. Arroyo catheter is in place, patient is producing adequate amount of clear and dilute urine. This morning his fever is controlled, and he is 97.8, blood pressure is 98/71, he is in sinus mechanism with a controlled rate at 85. He is resting comfortably, no evidence of grand mal seizures, he continues on thiamine replacement. On 07/13/2021 patient seen in follow-up in the intensive care unit. Patient was successfully weaned and extubated from mechanical ventilator on 07/10/2021. His alcohol withdrawal symptoms seem to be improving, patient remains on Precedex infusion, which is currently down to 0.8 mics per kilo per hour. Patient has required some intermittent doses of Ativan, required only 2 mg of Ativan last night, in addition to a single dose of morphine yesterday in the afternoon. His resting comfortably, he is drowsy, but he does respond to verbal stimulation, follows simple command. Does not appear to be in any acute distress. Also remains on Cleviprex at 4 mg per hour, and D5 half-normal saline at a rate of 80 ML per hour. Currently on 8 L of oxygen his pulse ox is 96%. Yesterday's chest x-ray was showing COPD, some interstitial densities, and patchy medial right basilar atelectasis versus infiltrate with the possibility of potential pneumonia possibly related to aspiration. Today's lab 7 reviewed showing electrolytes and renal profile within normal limits. Magnesium is 1.7 it is being replaced per protocol. Sputum culture showed Streptococcus pneumonia, blood cultures have been negative. Patient has been started on Levaquin for strep pneumonia. T-max in the last 24 hours was 99.7F, blood pressure is been stable. He is in sinus mechanism with a rate of 77. No nausea vomiting or diarrhea, abdomen is soft. Reevaluated today on 07/14/2021, patient remains in the ICU, remains on 2 L nasal cannula with O2 sat showed 94%, remains on Precedex and this is being weaned down, he is on Cleviprex at 2 mg per hour. Patient is requiring intermittently Ativan and Haldol. But overall the patient is doing much better. Remains on Levaquin. Patient is drowsy, but seems to be a bit more cooperative today compared to the last few days. Sputum was positive for Streptococcus pneumonia, chest x-ray showed minimal bibasilar infiltrates blood cultures have been negative. Patient was reevaluated today on 07/15/2021, patient is doing fairly well, he is off Precedex, remains on antibiotics, remains on Tessalon Perles, patient is also on Ativan as needed, remains on the CIWA protocol. Remains on updrafts, patient had demonstrated significant improvement in the last few days while in the ICU. Hence I plan to transfer the patient out of the ICU to regular medical floor. And possibly consider discharge planning in the next 24-48 hours. Basic metabolic profile today is normal. Patient has intermittent tachycardia and elevated blood pressure, hence I started the patient on metoprolol 25 mg by mouth twice a day Patient was reevaluated today on 07/16/2021, patient developed worsening symptoms of alcohol withdrawal yesterday, did not improve with multiple medications including Precedex, Haldol, Ativan, and the patient became more and more agitated, hence I recommended intubating the patient and he was placed on m echanical ventilation in the afternoon. Remains on mechanical ventilation his tidal volume is 450 rate is 26 FiO2 is 40% and PEEP of 5. ABG showed a pO2 of 92 pCO2 42 pH of 7.44. Patient is on propofol at 75 mcg/kg/m IV fluid at 80 mL/h. He is on GI and DVT prophylaxis. And is also on enteral feeding as per dietitian's recommendations WBC count is 10.2. Hemoglobin 11.3 electrolytes are normal renal profile is normal, chest x-ray showed COPD and minimal atelectasis in the lower lungs underlying pneumonia is not entirely ruled out Reevaluated today on 07/17/21, patient remains in the ICU, patient remains intubated and mechanically ventilated. He is on assist control rate of 26 tidal volume 450 FiO2 50% PEEP of 5. ABG showed a pO2 of 68 pCO2 of 40 pH of 7.46. Patient is on propofol at 75 mcg/kg/m, he is on IV fluid at 80 mL/h 0.9 normal saline, he is on vital a PE at 23 mL per hour. Hemodynamically the patient is stable, he was on Cleviprex yesterday which has been discontinued, his metoprolol has been discontinued because of bradycardia overnight. Patient is in sinus rhythm, not in any distress, sedated, and his chest x-ray today showed no evidence of infiltrate, may be a right medial lung atelectasis. Right IJ central line was placed in his patient today, and follow-up chest x-ray was basically unremarkable. WBC count is 8.2 hemoglobin is 10.6. Basic metabolic profile is normal renal profile is normal Reevaluated today on 07/18/21, patient remains in the ICU, intubated and mechanically ventilated. Remains on assist control rate of 26, tidal volume is 450, FiO2 40%, PEEP of 5. ABG showed a pO2 of 63 pCO2 of 39 pH of 7.49, hence his FiO2 was decreased from 40% to 45%. Patient remains on propofol at 35 but per kilo per minute, he is on Cleviprex, he is on IV fluid at 80 mL per hour, vital AF a 57 mL per hour, he is on Levaquin for streptococcal pneumonia.chest x-ray is showing no acute process, apparently his streptococcal pneumonia has resolved.in spite of propofol, the patient continues to have intermittent episodes of extreme agitations, at times is requiring even Ativan in addition to his propofol. Considering the report given to me about last night agitation in spite of propofol, I'm keeping the patient intubated and mechanically ventilated sedated, and I have no plans to wean or extubated anytime soon.WBC count today is 14.6 and global was 11.2.basic metabolic profile is normal renal profile is normal. Objective - Vital Signs Vital signs: Vital Signs Temp 100.7 F H 07/18/21 07:50 Pulse 110 H 07/18/21 10:00 Resp 26 H 07/18/21 10:00 BP 138/86 07/18/21 07:00 Pulse Ox 97 07/18/21 10:00 Intake & Output 07/17/21 07/18/21 07/18/21 18:59 06:59 18:59 Intake Total 3160.077 0324.6 664.800 Output Total 635 1345 1110 Balance 865.668 525.6 -445.200 Weight 69.8 kg 70.5 kg Intake: IV 960 960 326 Pressure Bag (0.9 Sodium 6 Chloride) Sodium Chloride 0.9% 1, 960 960 320 000 ml @ 80 mls/hr IV . [id number] JIMENEZ Rx#:[id number] Intake, IV Titration 457.668 339.6 160.800 Amount Clevidipine Butyrate 25 0.133 39.6 mg In Empty Bag 1 bag @ 2 MG/HR 4 mls/hr IV . [id number] JIMENEZ Rx#:[id number] Levofloxacin 750Mg-D5w 150 Pmx 750 mg In Dextrose/ Water 1 150ml.bag @ 100 mls/hr IVPB Q24H JIMENEZ Rx#: [id number] propofoL 1,000 mg In 307.535 300 160.800 Empty Bag 1 bag @ 5 MCG/ KG/MIN 2.01 mls/hr IV . Q24H JIMENEZ Rx#:[id number] Tube Feeding 83 481 148 Other 90 30 Output: Urine 635 1345 1110 Other: Voiding Method Indwelling Catheter Indwelling Catheter Indwelling Catheter ABP, PAP, CO, CI - Last Documented Arterial Blood Pressure 148/69 - Exam Physical Exam: Revealed 56-year-old white male, sedated, calm HEENT:[Neck is supple.] [No neck masses.] [No thyromegaly.] [No JVD.] Chest: [Clear breath sounds bilaterally no crackles or rhonchi or wheezes Cardiac Exam: [Normal S1 and S2, no S3 gallop, no murmur.] Abdomen: [Soft, nontender, no megaly, no rebound, no guarding, normal bowel sounds.] Extremities: [No clubbing, no edema, no cyanosis.] Neurological Exam: Could not assess, patient is sedated. Psychiatric: Could not assess, patient is sedated, on propofol Musculoskeletal: No deformities and no limitation in range of motion. - Labs CBC & Chem 7: 07/18/21 05:36 07/18/21 05:36 Labs: Abnormal Lab Results - Last 24 Hours (Table) 07/17/21 07/17/21 07/18/21 Range/Units 11:54 18:40 05:34 WBC (3.8-10.6) k/uL RBC (4.30-5.90) m/uL Hgb (13.0-17.5) gm/dL Hct (39.0-53.0) % MCV (80.0-100.0) fL MCH (25.0-35.0) pg Plt Count (150-450) k/uL Neutrophils # (1.3-7.7) k/uL Macrocytosis ABG pH (7.35-7.45) ABG pO2 (83-108) mmHg ABG HCO3 (21-25) mmol/L ABG Total CO2 (19-24) mmol/L ABG O2 Saturation (94-97) % Glucose (74-99) mg/dL POC Glucose (mg/dL) 130 H 112 H 110 H (75-99) mg/dL Alkaline Phosphatase (38-126) U/L Total Protein (6.3-8.2) g/dL Albumin (3.5-5.0) g/dL 07/18/21 07/18/21 07/18/21 Range/Units 05:36 05:36 06:11 WBC 14.6 H (3.8-10.6) k/uL RBC 2.87 L (4.30-5.90) m/uL Hgb 11.2 L (13.0-17.5) gm/dL Hct 34.6 L (39.0-53.0) % MCV 120.6 H (80.0-100.0) fL MCH 38.9 H (25.0-35.0) pg Plt Count 702 H (150-450) k/uL Neutrophils # 11.7 H (1.3-7.7) k/uL Macrocytosis Marked A ABG pH 7.49 H (7.35-7.45) ABG pO2 63 L (83-108) mmHg ABG HCO3 30 H (21-25) mmol/L ABG Total CO2 31 H (19-24) mmol/L ABG O2 Saturation 92.3 L (94-97) % Glucose 109 H (74-99) mg/dL POC Glucose (mg/dL) (75-99) mg/dL Alkaline Phosphatase 281 H (38-126) U/L Total Protein 6.2 L (6.3-8.2) g/dL Albumin 3.3 L (3.5-5.0) g/dL Microbiology - Last 24 Hours (Table) 07/16/21 23:02 Gram Stain - Preliminary Sputum Sputum Culture - Preliminary Assessment and Plan Assessment: Impression: Acute hypoxic respiratory failure, multifactorial, but this time the patient was reintubated mostly because of his worsening alcohol withdrawal symptoms and delirium tremens. Acute pneumonia secondary to Streptococcus pneumoniae, resolved based on chest x-ray findings Acute influenza infection Acute hypercapnic respiratory failure mostly related to sedation, required for alcohol withdrawal symptoms Acute alcohol withdrawal and delirium tremens Hypovolemic hyponatremia, resolved. Underlying chronic obstructive lung disease, inactive at present. Chronic smoker Alcohol abuse Recommendation: Continue ventilatory support Continue nutritional support/enteral feeding Continue GI and DVT prophylaxis Continue antibiotics Continue aspiration precautions Continue propofol and titrate accordingly Continue updrafts again not quite ready for weaning trial Patient will remain in the ICU Prognosis is guarded Critical care time is over 30 minutes Time with Patient: Greater than 30
[2021-07-18] MEDS: LEVOFLOXACIN 750MG-D5W PMX 750 MG in DEXTROSE/WATER 1 150ML.BAG IVPB SCH (13:23)
[2021-07-18] MEDS: SODIUM CHLORIDE 0.9% 1,000 ML IV SCH (13:27)
[2021-07-18 17:51] LABS: Glucose,Whole Blood 127 mg/dL (75-99)
[2021-07-19 00:04] LABS: Glucose,Whole Blood 100 mg/dL (75-99)
[2021-07-19] MEDS: HEPARIN SODIUM,PORCINE/PF 5,000 UNIT/0.5 ML SYRINGE SQ SCH ×3 (00:50→16:12)
[2021-07-19] MEDS: SODIUM CHLORIDE 0.9% 1,000 ML IV SCH ×2 (01:01→15:33)
[2021-07-19] MEDS: LORazepam 2 MG/ML INJ IV PRN ×4 (01:32→20:51)
[2021-07-19] MEDS: CLEVIDIPINE BUTYRATE 25 MG in EMPTY BAG 1 BAG IV SCH ×3 (01:56→22:10)
[2021-07-19 05:43] LABS: Glucose,Whole Blood 111 mg/dL (75-99)
[2021-07-19 06:01] LABS: Basophils # (A) 0.1 k/uL (0-0.2); Basophils % (A) 1 %; Eosinophils % (A) 0 %; HCT 35.2 % (39.0-53.0); HGB 11.5 gm/dL (13.0-17.5); Lymphocytes # (A) 1.6 k/uL (1.0-4.8); Lymphocytes % (A) 12 %; MCH 39.4 pg (25.0-35.0); MCHC 32.8 g/dL (31.0-37.0); MCV 120.3 fL (80.0-100.0); Macrocytosis Marked; Mean Platelet Volume 7.5; Monocytes # (A) 0.8 k/uL (0-1.0); Monocytes % (A) 6 %; Neutrophils # (A) 10.5 k/uL (1.3-7.7); Neutrophils % (A) 80 %; Platelet Count 706 k/uL (150-450); RBC 2.93 m/uL (4.30-5.90); RDW 15.3 % (11.5-15.5); WBC 13.2 k/uL (3.8-10.6)
[2021-07-19 06:09] LABS: ALT 33 U/L (4-49); AST 31 U/L (17-59); African American GFR (CKD) >90 (>60 ml/min/1.73 sqM); Albumin 3.3 g/dL (3.5-5.0); Alkaline Phosphatase 273 U/L (38-126); Anion Gap 4 mmol/L; Blood Urea Nitrogen 13 mg/dL (9-20); Calcium 8.8 mg/dL (8.4-10.2); Carbon Dioxide 31 mmol/L (22-30); Chloride 105 mmol/L (98-107); Glucose 108 mg/dL (74-99); Non-African American GFR(CKD) >90 (>60 ml/min/1.73 sqM); Potassium 3.7 mmol/L (3.5-5.1); Sodium 140 mmol/L (137-145); Total Bilirubin 0.2 mg/dL (0.2-1.3); Total Protein 6.3 g/dL (6.3-8.2)
[2021-07-19 06:22] LABS: ABG Base Excess 7.2 mmol/L; ABG HCO3 31 mmol/L (21-25); ABG Oxygen Saturation 93.9 % (94-97); ABG PCO2 40 mmHg (35-45); ABG PH 7.49 (7.35-7.45); ABG PO2 68 mmHg (83-108); ABG TCO2 32 mmol/L (19-24); Allen Test Performed? Yes
[2021-07-19 06:28] LABS: Polychromasia Present
--- NOTE | 2021-07-19 06:53 | XR ---
EXAMINATION TYPE: XR chest 1V portable DATE OF EXAM: 07/19/2021 CLINICAL HISTORY: Difficulty breathing progress study. TECHNIQUE: Single AP portable semiupright view of the chest is obtained. COMPARISON: Chest x-ray from one day earlier and older studies FINDINGS: Stable endotracheal and orogastric tubes. Stable right internal jugular central venous cat heter. Visualized lungs remain grossly clear. Cardiac silhouette size remains within normal limits. Old stephane nited fracture right mid to distal clavicle redemonstrated. IMPRESSION: No acute pulmonary process. No significant change from one day earlier.
[2021-07-19] MEDS: IPRATROPIUM-ALBUTEROL 3 ML NEB INHALATION SCH ×4 (07:32→19:05)
[2021-07-19] MEDS ORDERED: POTASSIUM BICARBONATE/CIT AC 20 MEQ TABLET.EFF NG-TUBE SCH (08:00)
[2021-07-19] MEDS: PANTOPRAZOLE 40 MG/10 ML VIAL IV SCH (09:09)
[2021-07-19] MEDS: CHLORHEXIDINE GLUCONATE 15 ML CUP MUCOUS MEM SCH ×2 (09:09→20:51)
[2021-07-19] MEDS: methylPREDNISolone SOD SUCCI 40 MG/ML 1 ML VIAL IV SCH (09:09)
[2021-07-19 11:50] LABS: Glucose,Whole Blood 126 mg/dL (75-99)
--- NOTE | 2021-07-19 12:17 | P.PN ---
Subjective Progress Note Date: 07/19/21 Patient remains intubated and sedated. He is on propofol 75 mL an hour. Objective - Vital Signs Vital signs: Vital Signs Temp 98.8 F 07/19/21 08:00 Pulse 97 07/19/21 11:31 Resp 20 07/19/21 11:00 BP 135/82 07/19/21 01:30 Pulse Ox 96 07/19/21 11:00 Intake & Output 07/18/21 07/19/21 07/19/21 18:59 06:59 18:59 Intake Total 8503.149 4474.266 786.267 Output Total 2565 2255 685 Balance -667.583 -376.734 101.267 Weight 70.4 kg Intake: IV 990 996 415 Pressure Bag (0.9 Sodium 30 36 15 Chloride) Sodium Chloride 0.9% 1, 960 960 400 000 ml @ 80 mls/hr IV . [id number] JIMENEZ Rx#:[id number] Intake, IV Titration 410.417 348.266 156.267 Amount Clevidipine Butyrate 25 58.667 48.266 56.267 mg In Empty Bag 1 bag @ 2 MG/HR 4 mls/hr IV . [id number] JIMENEZ Rx#:[id number] propofoL 1,000 mg In 351.750 300 100 Empty Bag 1 bag @ 5 MCG/ KG/MIN 2.01 mls/hr IV . 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 Psych - unable to assess - Labs CBC & Chem 7: 07/19/21 05:40 07/19/21 05:40 Labs: Abnormal Lab Results - Last 24 Hours (Table) 07/18/21 07/19/21 07/19/21 Range/Units 17:48 00:03 05:40 WBC 13.2 H (3.8-10.6) k/uL RBC 2.93 L (4.30-5.90) m/uL Hgb 11.5 L (13.0-17.5) gm/dL Hct 35.2 L (39.0-53.0) % MCV 120.3 H (80.0-100.0) fL MCH 39.4 H (25.0-35.0) pg Plt Count 706 H (150-450) k/uL Neutrophils # 10.5 H (1.3-7.7) k/uL Macrocytosis Marked A ABG pH (7.35-7.45) ABG pO2 (83-108) mmHg ABG HCO3 (21-25) mmol/L ABG Total CO2 (19-24) mmol/L ABG O2 Saturation (94-97) % Carbon Dioxide (22-30) mmol/L Creatinine (0.66-1.25) mg/dL Glucose (74-99) mg/dL POC Glucose (mg/dL) 127 H 100 H (75-99) mg/dL Alkaline Phosphatase (38-126) U/L Albumin (3.5-5.0) g/dL 07/19/21 07/19/21 07/19/21 Range/Units 05:40 05:41 05:58 WBC (3.8-10.6) k/uL RBC (4.30-5.90) m/uL Hgb (13.0-17.5) gm/dL Hct (39.0-53.0) % MCV (80.0-100.0) fL MCH (25.0-35.0) pg Plt Count (150-450) k/uL Neutrophils # (1.3-7.7) k/uL Macrocytosis ABG pH 7.49 H (7.35-7.45) ABG pO2 68 L (83-108) mmHg ABG HCO3 31 H (21-25) mmol/L ABG Total CO2 32 H (19-24) mmol/L ABG O2 Saturation 93.9 L (94-97) % Carbon Dioxide 31 H (22-30) mmol/L Creatinine 0.65 L (0.66-1.25) mg/dL Glucose 108 H (74-99) mg/dL POC Glucose (mg/dL) 111 H (75-99) mg/dL Alkaline Phosphatase 273 H (38-126) U/L Albumin 3.3 L (3.5-5.0) g/dL 07/19/21 Range/Units 11:48 WBC (3.8-10.6) k/uL RBC (4.30-5.90) m/uL Hgb (13.0-17.5) gm/dL Hct (39.0-53.0) % MCV (80.0-100.0) fL MCH (25.0-35.0) pg Plt Count (150-450) k/uL Neutrophils # (1.3-7.7) k/uL Macrocytosis ABG pH (7.35-7.45) ABG pO2 (83-108) mmHg ABG HCO3 (21-25) mmol/L ABG Total CO2 (19-24) mmol/L ABG O2 Saturation (94-97) % Carbon Dioxide (22-30) mmol/L Creatinine (0.66-1.25) mg/dL Glucose (74-99) mg/dL POC Glucose (mg/dL) 126 H (75-99) mg/dL Alkaline Phosphatase (38-126) U/L Albumin (3.5-5.0) g/dL Assessment and Plan Assessment: #Acute pneumonia secondary to Streptococcus pneumonia #Acute influenza infection #Acute hypercapnic respiratory failure #COPD exacerbation #Acute respiratory distress secondary to DTs -Continue Levaquin -Aspiration precautions -Patient intubated on 07/15/2021 for DTs -Resume steroids. Resume breathing treatments -Wean sedation as tolerated -ICU management #Acute alcohol withdrawal with delirium tremens -Patient currently intubated and sedated #Chronic smoker The patient is admitted with an anticipated greater than 2 midnight stay for evaluation of sepsis, influenza CODE STATUS: Full Code Anticipated discharge date: Depending on clinical course Anticipated discharge place: Home
[2021-07-19] MEDS: LEVOFLOXACIN 750MG-D5W PMX 750 MG in DEXTROSE/WATER 1 150ML.BAG IVPB SCH (13:23)
--- NOTE | 2021-07-19 13:31 | P.PN ---
Subjective Progress Note Date: 07/19/21 Principal diagnosis: Acute alcohol withdrawal and influenza A infection 56-year-old male patient, current smoker, with history of COPD, EtOH and marijuana use, presented to the emergency department on 07/08/2021 for evaluation of cough, congestion, dyspnea and fever. Patient tested positive for influenza A, and tested negative for COVID-19 and influenza B. He had a fever of 103 degrees Fahrenheit on presentation. He was tachycardic with a rate of 154, but in sinus mechanism. Chest x-ray showed no active cardiopulmonary disease. Patient was started on Tamiflu, IV steroids, and breathing treatments. However patient was starting to become agitated, and it was suspected that he was going through acute EtOH withdrawal, patient was given multiple doses of IV Ativan, to the point of unresponsiveness, and there was a concern about his airway protection and for that reason she was intubated and placed on mechanical ventilator. He was started on propofol and Versed infusion. He is awaiting a bed in the ICU, he seen in the emergency department. He is sedated and int ubated, he is on assist-control mode of ventilation with a rate of 26, tidal volume 450, FiO2 100% and PEEP of 5, blood gas this morning shows pO2 of greater than 400, pCO2 of 59, and pH of 7.19. This was done on respiratory rate of 24 which was subsequently increased to 26, and FiO2 was dropped down to 40%. His chest x-ray today shows no active cardiopulmonary disease, ET tube 4 cm above the tammy. Today's blood work has been reviewed, with little, is 5.5, hemoglobin is 12.9, serum sodium is 1:30 which is improved from 127 on admission, potassium is 4.2, chloride is 100, BUN is 16, creatinine 0.78. Troponin was 0.0-3, CRP was 5.9, proBNP was 250. Lactic acid was 2.3, patient was given 1, 1/2 L in fluid boluses, currently he is on 0.0 missing a rate of 80 ML per hour, lactic acid has improved and is down to 0.7. Raroyo catheter is in place, patient is producing adequate amount of clear and dilute urine. This morning his fever is controlled, and he is 97.8, blood pressure is 98/71, he is in sinus mechanism with a controlled rate at 85. He is resting comfortably, no evidence of grand mal seizures, he continues on thiamine replacement. On 07/13/2021 patient seen in follow-up in the intensive care unit. Patient was successfully weaned and extubated from mechanical ventilator on 07/10/2021. His alcohol withdrawal symptoms seem to be improving, patient remains on Precedex infusion, which is currently down to 0.8 mics per kilo per hour. Patient has required some intermittent doses of Ativan, required only 2 mg of Ativan last night, in addition to a single dose of morphine yesterday in the afternoon. His resting comfortably, he is drowsy, but he does respond to verbal stimulation, follows simple command. Does not appear to be in any acute distress. Also remains on Cleviprex at 4 mg per hour, and D5 half-normal saline at a rate of 80 ML per hour. Currently on 8 L of oxygen his pulse ox is 96%. Yesterday's chest x-ray was showing COPD, some interstitial densities, and patchy medial right basilar atelectasis versus infiltrate with the possibility of potential pneumonia possibly related to aspiration. Today's lab 7 reviewed showing electrolytes and renal profile within normal limits. Magnesium is 1.7 it is being replaced per protocol. Sputum culture showed Streptococcus pneumonia, blood cultures have been negative. Patient has been started on Levaquin for strep pneumonia. T-max in the last 24 hours was 99.7F, blood pressure is been stable. He is in sinus mechanism with a rate of 77. No nausea vomiting or diarrhea, abdomen is soft. Reevaluated today on 07/14/2021, patient remains in the ICU, remains on 2 L nasal cannula with O2 sat showed 94%, remains on Precedex and this is being weaned down, he is on Cleviprex at 2 mg per hour. Patient is requiring intermittently Ativan and Haldol. But overall the patient is doing much better. Remains on Levaquin. Patient is drowsy, but seems to be a bit more cooperative today compared to the last few days. Sputum was positive for Streptococcus pneumonia, chest x-ray showed minimal bibasilar infiltrates blood cultures have been negative. Patient was reevaluated today on 07/15/2021, patient is doing fairly well, he is off Precedex, remains on antibiotics, remains on Tessalon Perles, patient is also on Ativan as needed, remains on the CIWA protocol. Remains on updrafts, patient had demonstrated significant improvement in the last few days while in the ICU. Hence I plan to transfer the patient out of the ICU to regular medical floor. And possibly consider discharge planning in the next 24-48 hours. Basic metabolic profile today is normal. Patient has intermittent tachycardia and elevated blood pressure, hence I started the patient on metoprolol 25 mg by mouth twice a day Patient was reevaluated today on 07/16/2021, patient developed worsening symptoms of alcohol withdrawal yesterday, did not improve with multiple medications including Precedex, Haldol, Ativan, and the patient became more and more agitated, hence I recommended intubating the patient and he was placed on m echanical ventilation in the afternoon. Remains on mechanical ventilation his tidal volume is 450 rate is 26 FiO2 is 40% and PEEP of 5. ABG showed a pO2 of 92 pCO2 42 pH of 7.44. Patient is on propofol at 75 mcg/kg/m IV fluid at 80 mL/h. He is on GI and DVT prophylaxis. And is also on enteral feeding as per dietitian's recommendations WBC count is 10.2. Hemoglobin 11.3 electrolytes are normal renal profile is normal, chest x-ray showed COPD and minimal atelectasis in the lower lungs underlying pneumonia is not entirely ruled out Reevaluated today on 07/17/21, patient remains in the ICU, patient remains intubated and mechanically ventilated. He is on assist control rate of 26 tidal volume 450 FiO2 50% PEEP of 5. ABG showed a pO2 of 68 pCO2 of 40 pH of 7.46. Patient is on propofol at 75 mcg/kg/m, he is on IV fluid at 80 mL/h 0.9 normal saline, he is on vital a PE at 23 mL per hour. Hemodynamically the patient is stable, he was on Cleviprex yesterday which has been discontinued, his metoprolol has been discontinued because of bradycardia overnight. Patient is in sinus rhythm, not in any distress, sedated, and his chest x-ray today showed no evidence of infiltrate, may be a right medial lung atelectasis. Right IJ central line was placed in his patient today, and follow-up chest x-ray was basically unremarkable. WBC count is 8.2 hemoglobin is 10.6. Basic metabolic profile is normal renal profile is normal Reevaluated today on 07/18/21, patient remains in the ICU, intubated and mechanically ventilated. Remains on assist control rate of 26, tidal volume is 450, FiO2 40%, PEEP of 5. ABG showed a pO2 of 63 pCO2 of 39 pH of 7.49, hence his FiO2 was decreased from 40% to 45%. Patient remains on propofol at 35 but per kilo per minute, he is on Cleviprex, he is on IV fluid at 80 mL per hour, vital AF a 57 mL per hour, he is on Levaquin for streptococcal pneumonia.chest x-ray is showing no acute process, apparently his streptococcal pneumonia has resolved.in spite of propofol, the patient continues to have intermittent episodes of extreme agitations, at times is requiring even Ativan in addition to his propofol. Considering the report given to me about last night agitation in spite of propofol, I'm keeping the patient intubated and mechanically ventilated sedated, and I have no plans to wean or extubated anytime soon.WBC count today is 14.6 and global was 11.2.basic metabolic profile is normal renal profile is normal. Reevaluated today on 07/19/21, patient remains in ICU, intubated and mechanically ventilated, assist control rate of 26 tidal volume 450 FiO2 35% PEEP of 5. ABG showed a pO2 of 68 pCO2 of 40 pH of 7.49. Propofol remains at 75 mcg/m, patient is also on Cleviprex at 2 mg per hour, he is receiving vitamin HPI 37 mL/h, and his IV fluid is 0.9 normal saline at 80 mL per hour. Chest x-ray is showing significant improvement of his infiltrates, patient received a full course of Levaquin for streptococcal pneumonia. Today I recommended advancing the endotracheal tube as it seems to be high in the trachea. And I have recommended that we stop Levaquin. In spite of maximal sedation, the patient continues to have extreme episodes of agitations, hence I have no plans to wean this patient as it was extremely difficult to maintain the patient called when he was off mechanical ventilation. I believe the patient is not quite ready for weaning, and he needs to have more time on mechanical ventilation for complete detoxification Objective - Vital Signs Vital signs: Vital Signs Temp 99.6 F 07/19/21 12:00 Pulse 114 H 07/19/21 13:00 Resp 23 07/19/21 13:00 BP 135/82 07/19/21 01:30 Pulse Ox 94 L 07/19/21 13:00 Intake & Output 07/18/21 07/19/21 07/19/21 18:59 06:59 18:59 Intake Total 0375.370 2778.266 1154.255 Output Total 2565 2255 1310 Balance -667.583 -376.734 -155.745 Weight 70.4 kg Intake: IV 990 996 581 Pressure Bag (0.9 Sodium 30 36 21 Chloride) Sodium Chloride 0.9% 1, 960 960 560 000 ml @ 80 mls/hr IV . [id number] JIMENEZ Rx#:[id number] Intake, IV Titration 410.417 348.266 254.255 Amount Clevidipine Butyrate 25 58.667 48.266 56.267 mg In Empty Bag 1 bag @ 2 MG/HR 4 mls/hr IV . [id number] JIMENEZ Rx#:[id number] propofoL 1,000 mg In 351.750 300 197.988 Empty Bag 1 bag @ 5 MCG/ KG/MIN 2.01 mls/hr IV . Q24H JIMENEZ Rx#:[id number] Tube Feeding 407 444 259 Other 90 90 60 Output: Urine 2565 2255 1310 Other: Voiding Method Indwelling Catheter Indwelling Catheter Indwelling Catheter ABP, PAP, CO, CI - Last Documented Arterial Blood Pressure 143/69 - Exam Physical Exam: Revealed 56-year-old white male, on propofol, basically maximized. Calm, but arousable easily HEENT:[Neck is supple.] [No neck masses.] [No thyromegaly.] [No JVD.] Chest: [Clear breath sounds bilaterally no crackles or rhonchi or wheezes Cardiac Exam: [Normal S1 and S2, no S3 gallop, no murmur.] Abdomen: [Soft, nontender, no megaly, no rebound, no guarding, normal bowel sounds.] Extremities: [No clubbing, no edema, no cyanosis.] Neurological Exam: Could not assess, patient is sedated. Psychiatric: Could not assess, patient is sedated, on propofol Musculoskeletal: No deformities and no limitation in range of motion. - Labs CBC & Chem 7: 07/19/21 05:40 07/19/21 05:40 Labs: Abnormal Lab Results - Last 24 Hours (Table) 07/18/21 07/19/21 07/19/21 Range/Units 17:48 00:03 05:40 WBC 13.2 H (3.8-10.6) k/uL RBC 2.93 L (4.30-5.90) m/uL Hgb 11.5 L (13.0-17.5) gm/dL Hct 35.2 L (39.0-53.0) % MCV 120.3 H (80.0-100.0) fL MCH 39.4 H (25.0-35.0) pg Plt Count 706 H (150-450) k/uL Neutrophils # 10.5 H (1.3-7.7) k/uL Macrocytosis Marked A ABG pH (7.35-7.45) ABG pO2 (83-108) mmHg ABG HCO3 (21-25) mmol/L ABG Total CO2 (19-24) mmol/L ABG O2 Saturation (94-97) % Carbon Dioxide (22-30) mmol/L Creatinine (0.66-1.25) mg/dL Glucose (74-99) mg/dL POC Glucose (mg/dL) 127 H 100 H (75-99) mg/dL Alkaline Phosphatase (38-126) U/L Albumin (3.5-5.0) g/dL 07/19/21 07/19/21 07/19/21 Range/Units 05:40 05:41 05:58 WBC (3.8-10.6) k/uL RBC (4.30-5.90) m/uL Hgb (13.0-17.5) gm/dL Hct (39.0-53.0) % MCV (80.0-100.0) fL MCH (25.0-35.0) pg Plt Count (150-450) k/uL Neutrophils # (1.3-7.7) k/uL Macrocytosis ABG pH 7.49 H (7.35-7.45) ABG pO2 68 L (83-108) mmHg ABG HCO3 31 H (21-25) mmol/L ABG Total CO2 32 H (19-24) mmol/L ABG O2 Saturation 93.9 L (94-97) % Carbon Dioxide 31 H (22-30) mmol/L Creatinine 0.65 L (0.66-1.25) mg/dL Glucose 108 H (74-99) mg/dL POC Glucose (mg/dL) 111 H (75-99) mg/dL Alkaline Phosphatase 273 H (38-126) U/L Albumin 3.3 L (3.5-5.0) g/dL 07/19/21 Range/Units 11:48 WBC (3.8-10.6) k/uL RBC (4.30-5.90) m/uL Hgb (13.0-17.5) gm/dL Hct (39.0-53.0) % MCV (80.0-100.0) fL MCH (25.0-35.0) pg Plt Count (150-450) k/uL Neutrophils # (1.3-7.7) k/uL Macrocytosis ABG pH (7.35-7.45) ABG pO2 (83-108) mmHg ABG HCO3 (21-25) mmol/L ABG Total CO2 (19-24) mmol/L ABG O2 Saturation (94-97) % Carbon Dioxide (22-30) mmol/L Creatinine (0.66-1.25) mg/dL Glucose (74-99) mg/dL POC Glucose (mg/dL) 126 H (75-99) mg/dL Alkaline Phosphatase (38-126) U/L Albumin (3.5-5.0) g/dL Microbiology - Last 24 Hours (Table) 07/16/21 23:02 Gram Stain - Final Sputum Sputum Culture - Final Corynebacterium species Assessment and Plan Assessment: Impression: Acute hypoxic respiratory failure, multifactorial, but this time the patient was reintubated mostly because of his worsening alcohol withdrawal symptoms and delirium tremens. Acute pneumonia secondary to Streptococcus pneumoniae, resolved based on chest x-ray findings, we will discontinue Levaquin. Acute influenza infection, treated Acute hypercapnic respiratory failure mostly related to sedation, required for alcohol withdrawal symptoms Acute alcohol withdrawal and delirium tremens Hypovolemic hyponatremia, resolved. Underlying chronic obstructive lung disease, inactive at present. Chronic smoker Alcohol abuse Recommendation: Continue ventilatory support, no plans to wean or extubated today. No plans to hold sedation mostly because the patient gets extremely agitated as soon as sedation interrupted Continue nutritional support/enteral feeding Continue GI and DVT prophylaxis Discontinue Levaquin for streptococcal pneumonia, resolved patient received full treatment. Continue aspiration precautions Continue propofol and titrate accordingly Continue updrafts Patient will remain in the ICU Prognosis is guarded Critical care time is over 30 minutes Time with Patient: Greater than 30
[2021-07-19 17:47] LABS: Glucose,Whole Blood 112 mg/dL (75-99)
[2021-07-20 00:22] LABS: Glucose,Whole Blood 88 mg/dL (75-99)
[2021-07-20] MEDS: HEPARIN SODIUM,PORCINE/PF 5,000 UNIT/0.5 ML SYRINGE SQ SCH ×3 (00:43→16:45)
[2021-07-20] MEDS: LORazepam 2 MG/ML INJ IV PRN ×2 (02:10→05:39)
[2021-07-20] MEDS: CLEVIDIPINE BUTYRATE 25 MG in EMPTY BAG 1 BAG IV SCH ×3 (02:28→20:47)
[2021-07-20 05:17] LABS: Glucose,Whole Blood 111 mg/dL (75-99)
[2021-07-20 05:57] LABS: ABG Base Excess 6.4 mmol/L; ABG HCO3 30 mmol/L (21-25); ABG Oxygen Saturation 93.2 % (94-97); ABG PCO2 39 mmHg (35-45); ABG PH 7.49 (7.35-7.45); ABG PO2 67 mmHg (83-108); ABG TCO2 31 mmol/L (19-24); Allen Test Performed? Yes
--- NOTE | 2021-07-20 06:29 | XR ---
EXAMINATION TYPE: XR chest 1V portable DATE OF EXAM: 07/20/2021 CLINICAL HISTORY: Difficulty breathing progress study. TECHNIQUE: 2 frontal portable semiupright views of the chest are obtained. COMPARISON: Chest x-ray from one day earlier and older studies FINDINGS: Stable endotracheal and orogastric tubes. Stable right internal jugular central venous cat heter. Visualized lungs remain grossly clear. Cardiac silhouette size remains within normal limits. Old stephane nion fracture right mid to distal clavicle redemonstrated. IMPRESSION: No acute pulmonary process. No significant change from one day earlier.
[2021-07-20 06:41] LABS: Basophils % (A) 0 %; Eosinophils % (A) 0 %; HCT 38.5 % (39.0-53.0); HGB 12.6 gm/dL (13.0-17.5); Lymphocytes # (A) 1.7 k/uL (1.0-4.8); Lymphocytes % (A) 10 %; MCH 39.5 pg (25.0-35.0); MCHC 32.7 g/dL (31.0-37.0); MCV 120.6 fL (80.0-100.0); Macrocytosis Marked; Mean Platelet Volume 8.3; Monocytes % (A) 6 %; Neutrophils # (A) 13.7 k/uL (1.3-7.7); Neutrophils % (A) 83 %; Platelet Count 768 k/uL (150-450); RBC 3.19 m/uL (4.30-5.90); RDW 15.4 % (11.5-15.5); WBC 16.5 k/uL (3.8-10.6)
[2021-07-20 06:45] LABS: ALT 31 U/L (4-49); AST 30 U/L (17-59); African American GFR (CKD) >90 (>60 ml/min/1.73 sqM); Albumin 3.5 g/dL (3.5-5.0); Alkaline Phosphatase 270 U/L (38-126); Anion Gap 7 mmol/L; Blood Urea Nitrogen 16 mg/dL (9-20); Carbon Dioxide 27 mmol/L (22-30); Chloride 106 mmol/L (98-107); Glucose 108 mg/dL (74-99); Non-African American GFR(CKD) >90 (>60 ml/min/1.73 sqM); Potassium 3.8 mmol/L (3.5-5.1); Sodium 140 mmol/L (137-145); Total Bilirubin 0.3 mg/dL (0.2-1.3); Total Protein 6.6 g/dL (6.3-8.2)
[2021-07-20] MEDS: IPRATROPIUM-ALBUTEROL 3 ML NEB INHALATION SCH ×4 (07:28→19:38)
[2021-07-20] MEDS ORDERED: POTASSIUM BICARBONATE/CIT AC 20 MEQ TABLET.EFF NG-TUBE SCH (08:00)
[2021-07-20] MEDS: methylPREDNISolone SOD SUCCI 40 MG/ML 1 ML VIAL IV SCH (08:01)
[2021-07-20] MEDS: PANTOPRAZOLE 40 MG/10 ML VIAL IV SCH (08:02)
[2021-07-20] MEDS: CHLORHEXIDINE GLUCONATE 15 ML CUP MUCOUS MEM SCH ×2 (08:02→20:47)
--- NOTE | 2021-07-20 09:40 | P.PN ---
Subjective Progress Note Date: 07/20/21 Acute alcohol withdrawal and influenza A infection 56-year-old male patient, current smoker, with history of COPD, EtOH and marijuana use, presented to the emergency department on 07/08/2021 for evaluatio n of cough, congestion, dyspnea and fever. Patient tested positive for influenza A, and tested negative for COVID-19 and influenza B. He had a fever of 103 degrees Fahrenheit on presentation. He was tachycardic with a rate of 154, but in sinus mechanism. Chest x-ray showed no active cardiopulmonary disease. Patient was started on Tamiflu, IV steroids, and breathing treatments. However patient was starting to become agitated, and it was suspected that he was going through acute EtOH withdrawal, patient was given multiple doses of IV Ativan, to the point of unresponsiveness, and there was a concern about his airway protection and for that reason she was intubated and placed on mechanical ventilator. He was treated for DTs and the patient was also treated for streptococcal pneumonia and the patient was Patient was successfully weaned and extubated from mechanical ventilator on 07/10/2021. The did not improve with multiple medications including Precedex, Haldol, Ativan, and the patient became more and more agitated, reintubated on 07/16/21 he was placed on mechanical ventilation on 07/20/21, patient remains in ICU, she is currently on a propofol which is running at 50 mg/kg/m. The patient remains intubated on a mechanical ventilator. This morning, the patient is on a assist-control mode at the rate of 26 with a tidal volume of 450 and FiO2 of 35% with a PEEP of 5. The chest x- ray from today is showing adequate expansion of both lungs. ET tube is in a good location. The patient has a right IJ triple-lumen catheter in place. No acute airspace disease or consolidation seen. No evidence of any pneumothorax. The blood gases from today is showing a pH of 7.49 with a pCO2 of 39 and pO2 of 57 and this was done and FiO2 of 35%. The peak airway pressure is around 25 cm of water. Hemodynamically, the patient is in a sinus rhythm. He is on no pressors for now. His agitation is well-controlled. He is having an adequate blood pressure control. He was on Cleviprex and this was discontinued earlier this morning because of some underlying hypotension. As such, the patient is currently off the Cleviprex drip. The patient is also on bronchodilators. The patient is on IV Solu Medrol regarding his COPD exacerbation at a dose of 40 mg every 24 hours. Antibiotic course has been discontinued as the patient was treated for influenza A with Tamiflu and the patient also had a tubal infection with Streptococcus pneumonia on 07/09/2021 and the patient completed the course of Zosyn. Currently is on no antibiotics. His IV fluids are running at 80 mL an hour of normal saline and the patient has been in a negative fluid balance of 1 L over the past 24 hours. He is afebrile. No seizure activity has been noted. Objective - Vital Signs Vital signs: Vital Signs Temp 98.3 F 07/20/21 08:00 Pulse 96 07/20/21 09:00 Resp 26 H 07/20/21 09:00 BP 93/63 07/20/21 09:00 Pulse Ox 99 07/20/21 09:00 FiO2 35 07/20/21 08:00 Intake & Output 07/19/21 07/20/21 07/20/21 18:59 06:59 18:59 Intake Total 8139.399 0085.024 129.246 Output Total 2135 1645 50 Balance -230.019 339.024 79.246 Weight 66.2 kg Intake: IV 996 996 83 Pressure Bag (0.9 Sodium 36 36 3 Chloride) Sodium Chloride 0.9% 1, 960 960 80 000 ml @ 80 mls/hr IV . [id number] JIMENEZ Rx#:[id number] Intake, IV Titration 374.981 454.024 9.246 Amount Clevidipine Butyrate 25 84.734 87.733 mg In Empty Bag 1 bag @ 2 MG/HR 4 mls/hr IV . [id number] JIMENEZ Rx#:[id number] propofoL 1,000 mg In 290.247 366.291 9.246 Empty Bag 1 bag @ 5 MCG/ KG/MIN 2.01 mls/hr IV . Q24H JIMENEZ Rx#:[id number] Tube Feeding 444 444 37 Other 90 90 Output: Urine 2135 1645 50 Other: Voiding Method Indwelling Catheter Indwelling Catheter ABP, PAP, CO, CI - Last Documented Arterial Blood Pressure 101/82 - Exam Physical Exam: Revealed 56-year-old white male, on propofol, basically maxim ized. Calm, but arousable easily Head exam was generally normal. There was no scleral icterus or corneal arcus. Mucous membranes were moist. Neck was supple and without jugular venous distension, thyromegaly, or carotid bruits. Carotids were easily palpable bilaterally. There was no adenopathy. Chest: [Clear breath sounds bilaterally no crackles or rhonchi or wheezes Cardiac Exam: [Normal S1 and S2, no S3 gallop, no murmur.] Abdomen: Soft, nontender, no megaly, no rebound, no guarding, normal bowel sounds. Extremities: [No clubbing, no edema, no cyanosis. Neurological Exam: Could not assess, patient is sedated. Psychiatric: Could not assess, patient is sedated, on propofol Musculoskeletal: No deformities and no limitation in range of motion. - Labs CBC & Chem 7: 07/20/21 05:00 07/20/21 05:00 Labs: Abnormal Lab Results - Last 24 Hours (Table) 07/19/21 07/19/21 07/20/21 Range/Units 11:48 17:45 05:00 WBC 16.5 H (3.8-10.6) k/uL RBC 3.19 L (4.30-5.90) m/uL Hgb 12.6 L (13.0-17.5) gm/dL Hct 38.5 L (39.0-53.0) % MCV 120.6 H (80.0-100.0) fL MCH 39.5 H (25.0-35.0) pg Plt Count 768 H (150-450) k/uL Neutrophils # 13.7 H (1.3-7.7) k/uL Macrocytosis Marked A ABG pH (7.35-7.45) ABG pO2 (83-108) mmHg ABG HCO3 (21-25) mmol/L ABG Total CO2 (19-24) mmol/L ABG O2 Saturation (94-97) % Creatinine (0.66-1.25) mg/dL Glucose (74-99) mg/dL POC Glucose (mg/dL) 126 H 112 H (75-99) mg/dL Alkaline Phosphatase (38-126) U/L 07/20/21 07/20/21 07/20/21 Range/Units 05:00 05:08 05:55 WBC (3.8-10.6) k/uL RBC (4.30-5.90) m/uL Hgb (13.0-17.5) gm/dL Hct (39.0-53.0) % MCV (80.0-100.0) fL MCH (25.0-35.0) pg Plt Count (150-450) k/uL Neutrophils # (1.3-7.7) k/uL Macrocytosis ABG pH 7.49 H (7.35-7.45) ABG pO2 67 L (83-108) mmHg ABG HCO3 30 H (21-25) mmol/L ABG Total CO2 31 H (19-24) mmol/L ABG O2 Saturation 93.2 L (94-97) % Creatinine 0.63 L (0.66-1.25) mg/dL Glucose 108 H (74-99) mg/dL POC Glucose (mg/dL) 111 H (75-99) mg/dL Alkaline Phosphatase 270 H (38-126) U/L Microbiology - Last 24 Hours (Table) 07/16/21 23:02 Gram Stain - Final Sputum Sputum Culture - Final Corynebacterium species Assessment and Plan Plan: Acute hypoxic respiratory failure, multifactorial, but this time the patient was reintubated mostly because of his worsening alcohol withdrawal symptoms and del irium tremens. The patient remains on a mechanical ventilator. No signs of bronchospasm or wheezing. No signs of pneumonia. Peak and static pressures are low and the patient is hemodynamically stable. He remains intubation as the patient was very difficult to control his agitation due to ongoing issues with delirium tremens. Acute pneumonia secondary to Streptococcus pneumoniae, resolved based on chest x-ray findings, we will discontinue Levaquin. Acute influenza infection, treated Acute hypercapnic respiratory failure mostly related to sedation, required for alcohol withdrawal symptoms Acute alcohol withdrawal and delirium tremens Hypovolemic hyponatremia, resolved. Underlying chronic obstructive lung disease, inactive at present. Chronic smoker Alcohol abuse Recommendation: Continue ventilatory support Sadation holiday Assess mentation We anticipate extensive education on this patient once taken off the sedation. I'm suggesting Klonopin 1 mg twice a day and gradually wean off propofol. If he is able to wean adequately, the patient should be able to extubate. His p ulmonary status is stable for now. Continue nutritional support/enteral feeding Continue GI and DVT prophylaxis Discontinue Levaquin for streptococcal pneumonia, resolved patient received full treatment. Continue aspiration precautions Continue propofol and titrate accordingly Continue updrafts Patient will remain in the ICU Prognosis is guarded Critical care time is over 30 minutes Time with Patient: Greater than 30 Time with Patient: Greater than 30
[2021-07-20] MEDS: clonazePAM 1 MG TAB PO SCH ×2 (09:59→20:47)
[2021-07-20] MEDS: SODIUM CHLORIDE 0.9% 1,000 ML IV SCH ×2 (10:13→16:46)
--- NOTE | 2021-07-20 11:38 | P.PN ---
Subjective Progress Note Date: 07/20/21 Patient remains intubated and sedated. Patient started on Klonopin and is being weaned off the propofol. He has completed his antibiotic course for his streptococcus pneumonia. Objective - Vital Signs Vital signs: Vital Signs Temp 98.3 F 07/20/21 08:00 Pulse 98 07/20/21 11:31 Resp 26 H 07/20/21 11:00 BP 125/91 07/20/21 11:00 Pulse Ox 94 L 07/20/21 11:00 FiO2 35 07/20/21 11:31 Intake & Output 07/19/21 07/20/21 07/20/21 18:59 06:59 18:59 Intake Total 2550.587 6565.024 8586.184 Output Total 2135 1645 180 Balance -230.019 435.700 9942.184 Weight 66.2 kg Intake: IV 562 808 5434 Pressure Bag (0.9 Sodium 36 36 15 Chloride) Sodium Chloride 0.9% 1, 444 415 7024 000 ml @ 80 mls/hr IV . [id number] [facility] Rx#:[id number] Intake, IV Titration 374.981 454.024 97.184 Amount Clevidipine Butyrate 25 84.734 87.733 mg In Empty Bag 1 bag @ 2 MG/HR 4 mls/hr IV . [id number] [facility] Rx#:[id number] propofoL 1,000 mg In 290.247 366.291 97.184 Empty Bag 1 bag @ 5 MCG/ KG/MIN 2.01 mls/hr IV . Q24H [facility] Rx#:[id number] Tube Feeding 444 444 74 Other 90 90 Output: Urine 2135 1645 180 Other: Voiding Method Indwelling Catheter Indwelling Catheter Indwelling Catheter ABP, PAP, CO, CI - Last Documented Arterial Blood Pressure 148/82 - Exam General examination -intubated and sedated Heart - + S1S2 no murmurs Lungs -mild wheezing with rhonchi throughout Abdomen soft NT ND +ve BS Extremities - No edema [employer]OR - unable to assess Psych - unable to assess - Labs CBC & Chem 7: 07/20/21 05:00 07/20/21 05:00 Labs: Abnormal Lab Results - Last 24 Hours (Table) 07/19/21 07/19/21 07/20/21 Range/Units 11:48 17:45 05:00 WBC 16.5 H (3.8-10.6) k/uL RBC 3.19 L (4.30-5.90) m/uL Hgb 12.6 L (13.0-17.5) gm/dL Hct 38.5 L (39.0-53.0) % MCV 120.6 H (80.0-100.0) fL MCH 39.5 H (25.0-35.0) pg Plt Count 768 H (150-450) k/uL Neutrophils # 13.7 H (1.3-7.7) k/uL Macrocytosis Marked A ABG pH (7.35-7.45) ABG pO2 (83-108) mmHg ABG HCO3 (21-25) mmol/L ABG Total CO2 (19-24) mmol/L ABG O2 Saturation (94-97) % Creatinine (0.66-1.25) mg/dL Glucose (74-99) mg/dL POC Glucose (mg/dL) 126 H 112 H (75-99) mg/dL Alkaline Phosphatase (38-126) U/L 07/20/21 07/20/21 07/20/21 Range/Units 05:00 05:08 05:55 WBC (3.8-10.6) k/uL RBC (4.30-5.90) m/uL Hgb (13.0-17.5) gm/dL Hct (39.0-53.0) % MCV (80.0-100.0) fL MCH (25.0-35.0) pg Plt Count (150-450) k/uL Neutrophils # (1.3-7.7) k/uL Macrocytosis ABG pH 7.49 H (7.35-7.45) ABG pO2 67 L (83-108) mmHg ABG HCO3 30 H (21-25) mmol/L ABG Total CO2 31 H (19-24) mmol/L ABG O2 Saturation 93.2 L (94-97) % Creatinine 0.63 L (0.66-1.25) mg/dL Glucose 108 H (74-99) mg/dL POC Glucose (mg/dL) 111 H (75-99) mg/dL Alkaline Phosphatase 270 H (38-126) U/L Microbiology - Last 24 Hours (Table) 07/16/21 23:02 Gram Stain - Final Sputum Sputum Culture - Final Corynebacterium species Assessment and Plan Assessment: #Acute pneumonia secondary to Streptococcus pneumonia #Acute influenza infection #Acute hypercapnic respiratory failure #COPD exacerbation #Acute respiratory distress secondary to DTs -Patient completed his antibiotic course. -Patient also completed his antiviral course -Aspiration precautions -Patient intubated on 07/15/2021 for DTs -Resume steroids. Resume breathing treatments -Wean sedation as tolerated. Patient started on Klonopin to help wean off the propofol -ICU management #Acute alcohol withdrawal with delirium tremens -Patient currently intubated and sedated #Chronic smoker The patient is admitted with an anticipated greater than 2 midnight stay for evaluation of sepsis, influenza CODE STATUS: Full Code Anticipated discharge date: Depending on clinical course Anticipated discharge place: Home
[2021-07-20 11:40] LABS: Glucose,Whole Blood 129 mg/dL (75-99)
[2021-07-20 17:43] LABS: Glucose,Whole Blood 97 mg/dL (75-99)
[2021-07-21] MEDS: HEPARIN SODIUM,PORCINE/PF 5,000 UNIT/0.5 ML SYRINGE SQ SCH ×3 (00:03→16:02)
[2021-07-21 00:05] LABS: Glucose,Whole Blood 88 mg/dL (75-99)
[2021-07-21] MEDS: SODIUM CHLORIDE 0.9% 1,000 ML IV SCH (02:42)
[2021-07-21] MEDS: CLEVIDIPINE BUTYRATE 25 MG in EMPTY BAG 1 BAG IV SCH (03:35)
[2021-07-21 05:13] LABS: HGB 12.1 gm/dL (13.0-17.5); MCHC 32.6 g/dL (31.0-37.0); MCV 119.5 fL (80.0-100.0); Macrocytosis Marked; Mean Platelet Volume 7.2; Platelet Count 584 k/uL (150-450); RDW 14.9 % (11.5-15.5); WBC 13.3 k/uL (3.8-10.6)
[2021-07-21 05:48] LABS: African American GFR (CKD) >90 (>60 ml/min/1.73 sqM); Anion Gap 6 mmol/L; Blood Urea Nitrogen 13 mg/dL (9-20); Calcium 9.1 mg/dL (8.4-10.2); Carbon Dioxide 29 mmol/L (22-30); Chloride 102 mmol/L (98-107); Glucose 86 mg/dL (74-99); Non-African American GFR(CKD) >90 (>60 ml/min/1.73 sqM); Potassium 3.8 mmol/L (3.5-5.1); Sodium 137 mmol/L (137-145)
[2021-07-21 06:19] LABS: Glucose,Whole Blood 89 mg/dL (75-99)
[2021-07-21] MEDS: POTASSIUM CHLORIDE 10 MEQ in WATER FOR INJECTION 1 100ML.BAG IVPB SCH ×2 (06:51→08:55)
[2021-07-21] MEDS: IPRATROPIUM-ALBUTEROL 3 ML NEB INHALATION SCH ×4 (07:21→19:17)
[2021-07-21] MEDS: PANTOPRAZOLE 40 MG/10 ML VIAL IV SCH (08:55)
[2021-07-21] MEDS: CHLORHEXIDINE GLUCONATE 15 ML CUP MUCOUS MEM SCH (08:55)
[2021-07-21] MEDS: methylPREDNISolone SOD SUCCI 40 MG/ML 1 ML VIAL IV SCH (08:56)
[2021-07-21] MEDS: clonazePAM 1 MG TAB PO SCH ×2 (08:56→20:33)
--- NOTE | 2021-07-21 09:08 | XR ---
EXAMINATION TYPE: XR chest 1V portable DATE OF EXAM: 07/21/2021 Comparison: 07/20/2021 Clinical History: 56 year-old male tube placement Findings: Heart normal size. Mild hyperinflation. Right CVC tip at the lower SVC level. No consolidation or ple ural effusion seen. Interval extubation and removal of NG tube. Impression: Suspect underlying COPD. No acute process seen. Interval extubation and removal of NG tube.
--- NOTE | 2021-07-21 10:03 | P.PN ---
Subjective Progress Note Date: 07/21/21 Acute alcohol withdrawal and influenza A infection 56-year-old male patient, current smoker, with history of COPD, EtOH and marijuana use, presented to the emergency department on 07/08/2021 for evaluatio n of cough, congestion, dyspnea and fever. Patient tested positive for influenza A, and tested negative for COVID-19 and influenza B. He had a fever of 103 degrees Fahrenheit on presentation. He was tachycardic with a rate of 154, but in sinus mechanism. Chest x-ray showed no active cardiopulmonary disease. Patient was started on Tamiflu, IV steroids, and breathing treatments. However patient was starting to become agitated, and it was suspected that he was going through acute EtOH withdrawal, patient was given multiple doses of IV Ativan, to the point of unresponsiveness, and there was a concern about his airway protection and for that reason she was intubated and placed on mechanical ventilator. He was treated for DTs and the patient was also treated for streptococcal pneumonia and the patient was Patient was successfully weaned and extubated from mechanical ventilator on 07/10/2021. The did not improve with multiple medications including Precedex, Haldol, Ativan, and the patient became more and more agitated, reintubated on 07/16/21 he was placed on mechanical ventilation on 07/20/21, patient remains in ICU, she is currently on a propofol which is running at 50 mg/kg/m. The patient remains intubated on a mechanical ventilator. This morning, the patient is on a assist-control mode at the rate of 26 with a tidal volume of 450 and FiO2 of 35% with a PEEP of 5. The chest x- ray from today is showing adequate expansion of both lungs. ET tube is in a good location. The patient has a right IJ triple-lumen catheter in place. No acute airspace disease or consolidation seen. No evidence of any pneumothorax. The blood gases from today is showing a pH of 7.49 with a pCO2 of 39 and pO2 of 57 and this was done and FiO2 of 35%. The peak airway pressure is around 25 cm of water. Hemodynamically, the patient is in a sinus rhythm. He is on no pressors for now. His agitation is well-controlled. He is having an adequate blood pressure control. He was on Cleviprex and this was discontinued earlier this morning because of some underlying hypotension. As such, the patient is currently off the Cleviprex drip. The patient is also on bronchodilators. The patient is on IV Solu Medrol regarding his COPD exacerbation at a dose of 40 mg every 24 hours. Antibiotic course has been discontinued as the patient was treated for influenza A with Tamiflu and the patient also had a tubal infection with Streptococcus pneumonia on 07/09/2021 and the patient completed the course of Zosyn. Currently is on no antibiotics. His IV fluids are running at 80 mL an hour of normal saline and the patient has been in a negative fluid balance of 1 L over the past 24 hours. He is afebrile. No seizure activity has been noted. 07/21/2021, the patient is extubated and the patient is currently being monitored in the intensive care unit. The patient was a case of COPD exac erbation secondary to influenza A and subsequent streptococcal pneumonia. The patient completed a course of Tamiflu and the patient was also treated with IV Zosyn. The patient managed to wean himself off the mechanical ventilator yesterday and the patient was extubated and currently he is resting comfortably with O2 at 2 L in the patient's pulse ox is around 99%. Weaning is nonlabored and the patient is hemodynamically stable and the patient is afebrile. The white cell count is at 13.3 with hemoglobin of 12.1. Electrodes are all within normal limits. Renal function is normal. The patient is also off Cleviprex and the blood pressure is adequate and controlled for now. He remains on br onchodilators. He remains on steroids and the dose was reduced to 40 mg IV every 24 hours. IV fluids are still running at the rate of 80 mL an hour. Will start diet. He is following commands. Answering questions appropriately. No other significant events over the past 24 hours. Objective - Vital Signs Vital signs: Vital Signs Temp 98.5 F 07/21/21 08:00 Pulse 66 07/21/21 09:00 Resp 16 07/21/21 09:00 BP 139/72 07/21/21 09:00 Pulse Ox 99 07/21/21 09:00 FiO2 35 07/20/21 12:00 Intake & Output 07/20/21 07/21/21 07/21/21 18:59 06:59 18:59 Intake Total 9264.130 1122.1 287 Output Total 1435 2285 150 Balance 7829.130 -1162.9 137 Weight 66.2 kg 65.7 kg Intake: IV 9079 1096 266 Potassium Chloride 10 meq 100 100 In Water For Injection 1 100ml.bag @ 100 mls/hr IVPB Q1H [facility] Rx#: [id number] Pressure Bag (0.9 Sodium 39 36 6 Chloride) Sodium Chloride 0.9% 1, 9040 960 160 000 ml @ 80 mls/hr IV . [id number] [facility] Rx#:[id number] Intake, IV Titration 111.130 26.1 21 Amount Clevidipine Butyrate 25 11.433 26.1 21 mg In Empty Bag 1 bag @ 2 MG/HR 4 mls/hr IV . [id number] [facility] Rx#:[id number] propofoL 1,000 mg In 99.697 Empty Bag 1 bag @ 5 MCG/ KG/MIN 2.01 mls/hr IV . Q24H [facility] Rx#:[id number] Tube Feeding 74 Output: Urine 1435 2285 150 Other: Voiding Method Indwelling Catheter Indwelling Catheter ABP, PAP, CO, CI - Last Documented Arterial Blood Pressure 155/73 - Exam Physical Exam: Revealed 56-year-old white male, on a dose of oxygen by nasal cannula Head exam was generally normal. There was no scleral icterus or corneal arcus. Mucous membranes were moist. Neck was supple and without jugular venous distension, thyromegaly, or carotid bruits. Carotids were easily palpable bilaterally. There was no adenopathy. Chest: Diminished breath sounds, no significant wheezing at this point in time Cardiac Exam: [Normal S1 and S2, no S3 gallop, no murmur.] Abdomen: Soft, nontender, no megaly, no rebound, no guarding, normal bowel sounds. Extremities: [No clubbing, no edema, no cyanosis. Neurologically, the patient is awake and alert and the patient does not have any focal neurological deficit. Cranial nerves are essentially intact. Psychiatric: Could not assess, patient is sedated, on propofol Musculoskeletal: No deformities and no limitation in range of motion. - Labs CBC & Chem 7: 07/21/21 05:00 07/21/21 05:00 Labs: Abnormal Lab Results - Last 24 Hours (Table) 07/20/21 07/21/21 07/21/21 Range/Units 11:37 05:00 05:00 WBC 13.3 H (3.8-10.6) k/uL RBC 3.10 L (4.30-5.90) m/uL Hgb 12.1 L (13.0-17.5) gm/dL Hct 37.0 L (39.0-53.0) % MCV 119.5 H (80.0-100.0) fL MCH 39.0 H (25.0-35.0) pg Plt Count 584 H (150-450) k/uL Macrocytosis Marked A Creatinine 0.59 L (0.66-1.25) mg/dL POC Glucose (mg/dL) 129 H (75-99) mg/dL Assessment and Plan Plan: Acute hypoxic respiratory failure, multifactorial, but this time the patient was reintubated mostly because of his worsening alcohol withdrawal symptoms and delirium tremens. The patient was weaned off the mechanical ventilator and the patient is currently on O2 at 2 L chest x-ray from today showing no acute abnormalities. No acute process. Acute pneumonia secondary to Streptococcus pneumoniae, resolved based on chest x-ray findings, we will discontinue Levaquin. Acute influenza infection, treated Acute hypercapnic respiratory failure mostly related to sedation, required for alcohol withdrawal symptoms Acute alcohol withdrawal and delirium tremens Hypovolemic hyponatremia, resolved. Underlying chronic obstructive lung disease, inactive at present. Chronic smoker Alcohol abuse Recommendation: Extubated to 2 L of oxygen by nasal cannula Provide an incentive spirometer Stop the IV Solu Medrol start the patient prednisone burst taper Provide the patient with diet Discontinue the arterial line Continue GI and DVT prophylaxis Discontinue Levaquin for streptococcal pneumonia, resolved patient received full treatment. Continue breathing treatments IV fluids to KVO His mobility to be increased May transfer out of the intensive care unit Time with Patient: Greater than 30
[2021-07-21 11:57] LABS: Glucose,Whole Blood 85 mg/dL (75-99)
--- NOTE | 2021-07-21 15:33 | P.PN ---
Subjective Progress Note Date: 07/21/21 Principal diagnosis: Patient is sleepy, patient was extubated. He does not appear to be in distress. Objective - Vital Signs Vital signs: Vital Signs Temp 97.7 F 07/21/21 14:00 Pulse 92 07/21/21 14:00 Resp 14 07/21/21 14:00 BP 94/65 07/21/21 14:00 Pulse Ox 95 07/21/21 14:00 FiO2 35 07/20/21 12:00 Intake & Output 07/20/21 07/21/21 07/21/21 18:59 06:59 18:59 Intake Total 9264.130 1122.1 287 Output Total 1435 2285 150 Balance 7829.130 -1162.9 137 Weight 66.2 kg 65.7 kg Intake: IV 9079 1096 266 Potassium Chloride 10 meq 100 100 In Water For Injection 1 100ml.bag @ 100 mls/hr IVPB Q1H [facility] Rx#: [id number] Pressure Bag (0.9 Sodium 39 36 6 Chloride) Sodium Chloride 0.9% 1, 9040 960 160 000 ml @ 80 mls/hr IV . [id number] [facility] Rx#:[id number] Intake, IV Titration 111.130 26.1 21 Amount Clevidipine Butyrate 25 11.433 26.1 21 mg In Empty Bag 1 bag @ 2 MG/HR 4 mls/hr IV . [id number] [facility] Rx#:[id number] propofoL 1,000 mg In 99.697 Empty Bag 1 bag @ 5 MCG/ KG/MIN 2.01 mls/hr IV . Q24H [facility] Rx#:[id number] Tube Feeding 74 Output: Urine 1435 2285 150 Other: Voiding Method Indwelling Catheter Indwelling Catheter ABP, PAP, CO, CI - Last Documented Arterial Blood Pressure 155/73 - Exam Physical Exam: Sleepy, next week. Does not appear to be in distress. Head exam was generally normal. There was no scleral icterus or corneal arcus. Mucous membranes were moist. Neck was supple and without jugular venous distension Chest: Decreased breath sounds, no wheezing Cardiac Exam: [Normal S1 and S2, no S3 gallop, no murmur.] Abdomen: Soft, nontender, no megaly, no rebound, no guarding, normal bowel sounds. Extremities: [No clubbing, no edema, no cyanosis. Neurologically, the patient is awake and alert and the patient does not have any focal neurological deficit. Cranial nerves are essentially intact. Musculoskeletal: No deformities - Labs CBC & Chem 7: 07/21/21 05:00 07/21/21 05:00 Labs: Abnormal Lab Results - Last 24 Hours (Table) 07/21/21 07/21/21 Range/Units 05:00 05:00 WBC 13.3 H (3.8-10.6) k/uL RBC 3.10 L (4.30-5.90) m/uL Hgb 12.1 L (13.0-17.5) gm/dL Hct 37.0 L (39.0-53.0) % MCV 119.5 H (80.0-100.0) fL MCH 39.0 H (25.0-35.0) pg Plt Count 584 H (150-450) k/uL Macrocytosis Marked A Creatinine 0.59 L (0.66-1.25) mg/dL Assessment and Plan Plan: #Acute pneumonia secondary to Streptococcus pneumonia #Acute influenza infection #Acute hypercapnic respiratory failure #COPD exacerbation #Acute respiratory distress secondary to DTs -Patient completed his antibiotic course. -Patient also completed his antiviral course -Aspiration precautions -Patient intubated on 07/15/2021 for DTs -Resume steroids. Resume breathing treatments -Patient was extubated continue oxygen as indicated. #Acute alcohol withdrawal with delirium tremens -Patient currently intubated and sedated #Chronic smoker The patient is admitted with an anticipated greater than 2 midnight stay for evaluation of sepsis, influenza CODE STATUS: Full Code Anticipated discharge date: Pending clinical progression. Anticipated discharge place: Home
[2021-07-21 17:13] LABS: Glucose,Whole Blood 120 mg/dL (75-99)
[2021-07-21 20:25] LABS: Glucose,Whole Blood 106 mg/dL (75-99)
[2021-07-22] MEDS: HEPARIN SODIUM,PORCINE/PF 5,000 UNIT/0.5 ML SYRINGE SQ SCH ×3 (01:04→16:59)
[2021-07-22] MEDS: IPRATROPIUM-ALBUTEROL 3 ML NEB INHALATION SCH ×4 (07:04→20:07)
[2021-07-22 07:11] LABS: Glucose,Whole Blood 86 mg/dL (75-99)
[2021-07-22] MEDS: predniSONE 10 MG TAB PO SCH (09:55)
[2021-07-22] MEDS: clonazePAM 1 MG TAB PO SCH ×2 (09:56→20:15)
[2021-07-22] MEDS: PANTOPRAZOLE 40 MG/10 ML VIAL IV SCH (09:56)
[2021-07-22 11:44] LABS: Glucose,Whole Blood 132 mg/dL (75-99)
--- NOTE | 2021-07-22 14:41 | P.PN ---
Subjective Progress Note Date: 07/22/21 Doing well today. Will monitor patient overnight and try to wean oxygen as able. Gen: awake, alert HEENT: normocephalic, atraumatic, good hearing acuity, moist mucous membranes Resp: good air exchange, breathing comfortably with no accessory muscle use CVS: good distal perfusion x 4, GI: soft, NTTP, ND : no SPT, no CVAT, odom catheter not present MSK: no pitting edema, no clubbing Neuro: non-focal, moving all extremities Psych: cooperative, euthymic mood Assessment/plan: #Acute pneumonia secondary to Streptococcus pneumonia #Acute influenza infection #Acute hypercapnic respiratory failure #COPD exacerbation #Acute respiratory distress secondary to DTs -Patient completed his antibiotic course. -Patient also completed his antiviral course -Aspiration precautions -Patient intubated on 07/15/2021 for DTs -Resume steroids. Resume breathing treatments -Patient was extubated continue oxygen as indicated. #Acute alcohol withdrawal with delirium tremens -Patient currently intubated and sedated #Chronic smoker The patient is admitted with an anticipated greater than 2 midnight stay for evaluation of sepsis, influenza CODE STATUS: Full Code Anticipated discharge date: Pending clinical progression. Anticipated discharge place: Home Objective - Vital Signs Vital signs: Vital Signs Temp 98.5 F 07/22/21 12:13 Pulse 113 H 07/22/21 12:13 Resp 18 07/22/21 12:13 BP 120/77 07/22/21 12:13 Pulse Ox 92 L 07/22/21 12:13 FiO2 35 07/20/21 12:00 Intake & Output 07/21/21 07/22/21 07/22/21 18:59 06:59 18:59 Intake Total 287 0 Output Total 150 1 Balance 137 -1 Weight 65 kg Intake: IV 266 Potassium Chloride 10 meq 100 In Water For Injection 1 100ml.bag @ 100 mls/hr IVPB Q1H [facility] Rx#: [id number] Pressure Bag (0.9 Sodium 6 Chloride) Sodium Chloride 0.9% 1, 160 000 ml @ 80 mls/hr IV . [id number] [facility] Rx#:[id number] Intake, IV Titration 21 0 Amount Clevidipine Butyrate 25 21 mg In Empty Bag 1 bag @ 2 MG/HR 4 mls/hr IV . [id number] [facility] Rx#:[id number] Sodium Chloride 0.9% 1, 0 000 ml @ 80 mls/hr IV . [id number] [facility] Rx#:[id number] Output: Urine 150 1 Other: Voiding Method Urinal Urinal Urinal # Voids 500 # Bowel Movements 0 ABP, PAP, CO, CI - Last Documented Arterial Blood Pressure 155/73 - Labs CBC & Chem 7: 07/21/21 05:00 07/21/21 05:00 Labs: Abnormal Lab Results - Last 24 Hours (Table) 07/21/21 07/21/21 07/22/21 Range/Units 17:11 20:24 11:41 POC Glucose (mg/dL) 120 H 106 H 132 H (75-99) mg/dL 07/22/21 Range/Units 11:41 POC Glucose (mg/dL) 132 H (75-99) mg/dL
--- NOTE | 2021-07-22 15:03 | P.PN ---
Subjective Progress Note Date: 07/22/21 Principal diagnosis: Shortness of breath, influenza pneumonia, community acquired pneumonia, EtOH withdrawal On 07/22/2021 patient seen in follow-up on medical surgical floor. He was successfully weaned and extubated for the second time during this admission the day before yesterday on 07/20/2021. Tolerating extubation quite well so far. Breathing comfortably, he is on 3 L of oxygen, pulse ox is 92%, no agitation, no confusion, he is oriented 3, he is calm and cooperative. He states he has occasional cough, and he has been clearing some clear-colored phlegm. No hemo ptysis, no complaints of chest discomfort, no fever or chills, vital signs have been stable, he has been ambulating with a walker to the bathroom, tolerating ambulation well. He was transferred out of intensive care unit yesterday, his had no acute events overnight, tolerating diet, no nausea vomiting or diarrhea. He has completed a course of his antibiotics, completed Tamiflu. We transitioned him to oral prednisone, on sounds are diminished at the bases, with a few scattered rales, remains on nebulized bronchodilators. He is on GI and DVT prophylaxis, remains on CIWA protocol, however he has not required any Ativan for EtOH withdrawal symptoms in the last 24 hours, has not required any Haldol either. Chest x-ray showing underlying COPD, no acute process, interval extubation and removal of NG tube Objective - Vital Signs Vital signs: Vital Signs Temp 98.5 F 07/22/21 12:13 Pulse 113 H 07/22/21 12:13 Resp 18 07/22/21 12:13 BP 120/77 07/22/21 12:13 Pulse Ox 92 L 07/22/21 12:13 FiO2 35 07/20/21 12:00 Intake & Output 07/21/21 07/22/21 07/22/21 18:59 06:59 18:59 Intake Total 287 0 Output Total 150 1 Balance 137 -1 Weight 65 kg Intake: IV 266 Potassium Chloride 10 meq 100 In Water For Injection 1 100ml.bag @ 100 mls/hr IVPB Q1H [facility] Rx#: [id number] Pressure Bag (0.9 Sodium 6 Chloride) Sodium Chloride 0.9% 1, 160 000 ml @ 80 mls/hr IV . [id number] [facility] Rx#:[id number] Intake, IV Titration 21 0 Amount Clevidipine Butyrate 25 21 mg In Empty Bag 1 bag @ 2 MG/HR 4 mls/hr IV . [id number] [facility] Rx#:[id number] Sodium Chloride 0.9% 1, 0 000 ml @ 80 mls/hr IV . [id number] [facility] Rx#:[id number] Output: Urine 150 1 Other: Voiding Method Urinal Urinal Urinal # Voids 500 # Bowel Movements 0 ABP, PAP, CO, CI - Last Documented Arterial Blood Pressure 155/73 - Exam GENERAL EXAM: Alert, very pleasant, 56-year-old white male on 3 L of oxygen pulse ox is 96% comfortable in no apparent distress. HEAD: Normocephalic/atraumatic. EYES: Normal reaction of pupils, equal size. Conjunctiva pink, sclera white. NOSE: Clear with pink turbinates. THROAT: No erythema or exudates. NECK: No masses, no JVD, no thyroid enlargement, no adenopathy. CHEST: No chest wall deformity. Symmetrical expansion. LUNGS: Equal air entry with no bibasilar crackles CVS: Regular rate and rhythm, normal S1 and S2, no gallops, no murmurs, no rubs ABDOMEN: Soft, nontender. No hepatosplenomegaly, normal bowel sounds, no guarding or rigidity. EXTREMITIES: No clubbing, no edema, no cyanosis, 2+ pulses and upper and lower extremities. MUSCULOSKELETAL: Muscle strength and tone normal. SPINE: No scoliosis or deformity SKIN: No rashes CENTRAL NERVOUS SYSTEM: Alert and oriented -3. No focal deficits, tone is n ormal in all 4 extremities. PSYCHIATRIC: Alert and oriented -3. Appropriate affect. Intact judgment and insight. - Labs CBC & Chem 7: 07/21/21 05:00 07/21/21 05:00 Labs: Abnormal Lab Results - Last 24 Hours (Table) 07/21/21 07/21/21 07/22/21 Range/Units 17:11 20:24 11:41 POC Glucose (mg/dL) 120 H 106 H 132 H (75-99) mg/dL 07/22/21 Range/Units 11:41 POC Glucose (mg/dL) 132 H (75-99) mg/dL Assessment and Plan Plan: Assessment: #1. Acute hypoxic and hypercapnic respiratory failure, multifactorial, related to acute EtOH withdrawal, community acquired pneumonia, and influenza A infection. Patient was initially intubated on 07/08/2021, and extubated on 07/10/2021, however required reintubation on 07/17/2021 for worsening hypoxia, agitation, and acute EtOH withdrawal, and was again successfully weaned and extubated on 07/20/2021 #2. Acute Streptococcus pneumonie pneumonia, resolved based on the chest x-ray findings, was treated with azithromycin and Rocephin initially, and finished a course of Levaquin #3. Acute alcohol withdrawal and delirium tremens, significantly improved #4. Hypovolemic hyponatremia resolved #5. Mild lactic acidosis corrected #6. COPD #7. Chronic smoker #8. History of EtOH abuse #9. Marijuana use Plan: Clinically patient has been tolerating extubation quite well, breathing comfortably Continue weaning FiO2, provide incentive spirometer, deep breathing and coughing Continue with her oral prednisone, patient has completed his antibiotics His latest chest x-ray shows resolution of his pneumonia Continue working on gait training, and rehab From pulmonary perspective patient may be considered for discharge home in the next 24-48 hours if cleared by medicine Outpatient follow-up with Dr. Angel any office in 7-10 days I have personally seen and examined the patient, performed the documentation and the assessment and plan as written. Number of minutes spent on the visit: [10] I have personally seen and examined the patient and reviewed the documentation. I performed a joint evaluation with the nurse practitioner in this evaluation was done more than 20 minutes. I fully agree with the documentation above and the plan of care. I have seen this patient in conjunction with the nurse practitioner. The patient is doing well. The patient was transferred out of the intensive care unit. He is still having some weakness. Nevertheless is improving and the patient may be potentially discharged the next 24-48 hours. Continue the prednisone burst taper. Continue using incentive spirometer. Continue supportive care. We'll continue to follow. Time with Patient: Less than 30
[2021-07-22 17:20] LABS: Glucose,Whole Blood 136 mg/dL (75-99)
[2021-07-22 20:22] VITALS: RESP 16
[2021-07-22 21:04] LABS: Glucose,Whole Blood 127 mg/dL (75-99)
[2021-07-23] MEDS: HEPARIN SODIUM,PORCINE/PF 5,000 UNIT/0.5 ML SYRINGE SQ SCH ×2 (01:21→07:53)
[2021-07-23 04:23] VITALS: BP 147/89; TEMP 98.8
[2021-07-23 07:12] LABS: Glucose,Whole Blood 79 mg/dL (75-99)
[2021-07-23] MEDS: IPRATROPIUM-ALBUTEROL 3 ML NEB INHALATION SCH ×3 (07:19→16:45)
[2021-07-23] MEDS: clonazePAM 1 MG TAB PO SCH (07:54)
[2021-07-23] MEDS: predniSONE 10 MG TAB PO SCH (07:54)
[2021-07-23] MEDS: PANTOPRAZOLE 40 MG/10 ML VIAL IV SCH (07:55)
--- NOTE | 2021-07-23 14:46 | P.PN ---
Subjective Progress Note Date: 07/23/21 Principal diagnosis: Shortness of breath, influenza pneumonia, community acquired pneumonia, EtOH withdrawal On 07/22/2021 patient seen in follow-up on medical surgical floor. He was successfully weaned and extubated for the second time during this admission the day before yesterday on 07/20/2021. Tolerating extubation quite well so far. Breathing comfortably, he is on 3 L of oxygen, pulse ox is 92%, no agitation, no confusion, he is oriented 3, he is calm and cooperative. He states he has occasional cough, and he has been clearing some clear-colored phlegm. No hemo ptysis, no complaints of chest discomfort, no fever or chills, vital signs have been stable, he has been ambulating with a walker to the bathroom, tolerating ambulation well. He was transferred out of intensive care unit yesterday, his had no acute events overnight, tolerating diet, no nausea vomiting or diarrhea. He has completed a course of his antibiotics, completed Tamiflu. We transitioned him to oral prednisone, on sounds are diminished at the bases, with a few scattered rales, remains on nebulized bronchodilators. He is on GI and DVT prophylaxis, remains on CIWA protocol, however he has not required any Ativan for EtOH withdrawal symptoms in the last 24 hours, has not required any Haldol either. Chest x-ray showing underlying COPD, no acute process, interval extubation and removal of NG tube On 07/23/2021 patient seen in follow-up on medical surgical floor, he is breathing comfortably, vital signs have been stable, no fever or chills, no worsening dyspnea or cough, no acute events overnight. Patient is currently on 3 L of oxygen pulse ox is 96%, but room air O2 saturations with ambulation were reportedly low, and patient will likely qualify for home oxygen. Patient has completed a course of antibiotics for pneumonia related to Streptococcus pneumonia, he did complete Tamiflu. He is on prednisone at 30 mg daily. IV fluids have been hep-locked, he is tolerating inhalation, EKG and hasn't had any evidence of confusion or agitation, no evidence of active EtOH withdrawal. Objective - Vital Signs Vital signs: Vital Signs Temp 98.8 F 07/23/21 04:20 Pulse 94 07/23/21 07:31 Resp 16 05/26/22 08:05 BP 147/89 07/23/21 04:20 Pulse Ox 96 07/23/21 04:20 FiO2 35 07/20/21 12:00 Intake & Output 07/22/21 07/23/21 07/23/21 18:59 06:59 18:59 Intake Total 540 Balance 540 Weight 64.8 kg Intake: Oral 540 Other: Voiding Method Urinal Urinal Urinal # Voids 3 ABP, PAP, CO, CI - Last Documented Arterial Blood Pressure 155/73 - Exam GENERAL EXAM: Alert, very pleasant, 56-year-old white male on 3 L of oxygen pulse ox is 96% comfortable in no apparent distress. HEAD: Normocephalic/atraumatic. EYES: Normal reaction of pupils, equal size. Conjunctiva pink, sclera white. NOSE: Clear with pink turbinates. THROAT: No erythema or exudates. NECK: No masses, no JVD, no thyroid enlargement, no adenopathy. CHEST: No chest wall deformity. Symmetrical expansion. LUNGS: Equal air entry with no bibasilar crackles CVS: Regular rate and rhythm, normal S1 and S2, no gallops, no murmurs, no rubs ABDOMEN: Soft, nontender. No hepatosplenomegaly, normal bowel sounds, no guarding or rigidity. EXTREMITIES: No clubbing, no edema, no cyanosis, 2+ pulses and upper and lower extremities. MUSCULOSKELETAL: Muscle strength and tone normal. SPINE: No scoliosis or deformity SKIN: No rashes CENTRAL NERVOUS SYSTEM: Alert and oriented -3. No focal deficits, tone is normal in all 4 extremities. PSYCHIATRIC: Alert and oriented -3. Appropriate affect. Intact judgment and insight. - Labs CBC & Chem 7: 07/21/21 05:00 07/21/21 05:00 Labs: Abnormal Lab Results - Last 24 Hours (Table) 07/22/21 07/22/21 07/22/21 Range/Units 17:14 17:14 21:02 POC Glucose (mg/dL) 136 H 136 H 127 H (75-99) mg/dL Assessment and Plan Plan: Assessment: #1. Acute hypoxic and hypercapnic respiratory failure, multifactorial, related to acute EtOH withdrawal, community acquired pneumonia, and influenza A infection. Patient was initially intubated on 07/08/2021, and extubated on 07/10/2021, however required reintubation on 07/17/2021 for worsening hypoxia, agitation, and acute EtOH withdrawal, and was again successfully weaned and extubated on 07/20/2021 #2. Acute Streptococcus pneumonie pneumonia, resolved based on the chest x-ray findings, was treated with azithromycin and Rocephin initially, and finished a course of Levaquin #3. Acute alcohol withdrawal and delirium tremens, significantly improved #4. Hypovolemic hyponatremia resolved #5. Mild lactic acidosis corrected #6. COPD #7. Chronic smoker #8. History of EtOH abuse #9. Marijuana use Plan: Obtain home oxygen assessment and patient will likely qualify for home oxygen Otherwise clinically has been stable, continues to improve, no worsening dyspnea, his latest chest x-ray was showing resolution of his pneumonia Tolerating ambulation, his had no fever or chills He completed his antibiotics for community-acquired pneumonia, improving course of Tamiflu for influenza A infection Continue working on gait training, and rehab From pulmonary perspective patient may be considered for discharge home today Outpatient follow-up with Dr. Angel any office in 7-10 days I have personally seen and examined the patient, performed the documentation and the assessment and plan as written. Number of minutes spent on the visit: [10] I have personally seen and examined the patient and reviewed the documentation. I performed a joint evaluation with the nurse practitioner in this evaluation was done more than 10 minutes. I fully agree with the documentation above and the plan of care.. The patient is stable. Insulin for home O2. Home nebulizer. Symbicort for outpatient maintenance of COPD. We'll follow. Time with Patient: Less than 30
[2021-07-23 16:38] VITALS: BMI 20.5
--- NOTE | 2021-07-23 16:43 | P.DS ---
Providers Date of admission: 07/09/21 00:52 Expected date of discharge: 07/23/21 Attending physician: Ariane Tai MD Consults: 07/09/21 04:02 Consult Physician Routine Consulting Provider: Graham Boss Consult Reason/Comments: icu Do you want consulting provider notified?: Yes 07/17/21 04:48 Consult Physician Routine Consulting Provider: Jennifer Dunham Consult Reason/Comments: New bradycardia Do you want consulting provider notified?: Yes, Notify in am Primary care physician: Stated None Hospital Course: #Acute pneumonia secondary to Streptococcus pneumonia #Acute influenza infection #Acute hypercapnic respiratory failure #COPD exacerbation #Acute respiratory distress secondary to DTs #Acute alcohol withdrawal with delirium tremens #Chronic smoker The patient is a 56-year-old male with a PMH of EtOH abuse and COPD who had presented to the emergency room for fever and overall not feeling well. The patient was reportedly denying experiencing chest discomfort or shortness of breath. While in the emergency room, the patient was septic and developed delirium tremens. He received 20 mg of Ativan IV push without significant improvement. He subsequently had a seizure and was intubated for airway protection. Laboratory evaluation revealed magnesium of 0.9, troponin 0.023, lactic acid 1.6, and influenza type A positive. Initial EKG had revealed sinus tachycardia with APCs at 151 bpm. The patient was intubated and sent to the ICU. Thereafter, his hospital course was complicated by prolonged encephalopathy from sepsis and ETOH withdrawal. He was ultimately able to be extubated to NC, then downtitrated to 3L NC by the time of discharge. Pt was also treated for streptococcal pneumonia and COPD exacerbation and did complete his course of antibiotics while in house, but was discharged with a 12 day prednisone taper per pulmonary recommendation due to the severity of his COPD exacerbation, and new medications for symbicort scheduled and albuterol prn. Pt will f/u with pulmonology and cardiology ni 7-10 days. I spent 45 minutes coordinating this complex discharge. Gen: awake, alert HEENT: normocephalic, atraumatic, good hearing acuity, moist mucous membranes Resp: good air exchange, breathing comfortably with no accessory muscle use CVS: good distal perfusion x 4, GI: soft, NTTP, ND : no SPT, no CVAT, odom catheter not present MSK: no pitting edema, no clubbing Neuro: non-focal, moving all extremities Psych: cooperative, euthymic mood Patient Condition at Discharge: Critical Plan - Discharge Summary Discharge Rx Participant: No New Discharge Prescriptions: New predniSONE 0 mg PO DIRECTED 12 Days #24 tab Ipratropium-Albuterol Nebulize [Duoneb 0.5 mg-3 mg/3 ml Soln] 3 ml INHALATION QID 30 Days #6 pack predniSONE 0 mg PO DIRECTED 12 Days #24 tab Budesonide/Formoterol Fumarate [Symbicort 160-4.5 Mcg Inhaler] 2 puff INHALATION BID 30 Days #1 each Albuterol Inhaler [Ventolin Hfa Inhaler] 2 puff INHALATION RT-QID #8 gm Budesonide/Formoterol Fumarate [Symbicort 160-4.5 Mcg Inhaler] 2 puff INHALATION BID 30 Days #1 each Discharge Medication List Albuterol Inhaler [Ventolin Hfa Inhaler] 2 puff INHALATION RT-QID #8 gm 07/23/21 [Rx] Budesonide/Formoterol Fumarate [Symbicort 160-4.5 Mcg Inhaler] 2 puff INHALATION BID 30 Days #1 each 07/23/21 [Rx] Budesonide/Formoterol Fumarate [Symbicort 160-4.5 Mcg Inhaler] 2 puff INHALATION BID 30 Days #1 each 07/23/21 [Rx] Ipratropium-Albuterol Nebulize [Duoneb 0.5 mg-3 mg/3 ml Soln] 3 ml INHALATION QID 30 Days #6 pack 07/23/21 [Rx] predniSONE 0 mg PO DIRECTED 12 Days #24 tab 07/23/21 [Rx] predniSONE 0 mg PO DIRECTED 12 Days #24 tab 07/23/21 [Rx] Follow up Appointment(s)/Referral(s): [facility], [NON-STAFF] - 1 Week None,Stated [Primary Care Provider] - 1-2 days Suhas Samuel MD [STAFF PHYSICIAN] - 1 Week Discharge Disposition: HOME SELF-CARE
[2021-07-23 16:56] VITALS: PULSE 98
== END 2021-07-23 17:00 | disposition home or self-care (01) | DRG 870 ==
LOC: EC 21:37 → 3SCARD 07-09 00:52 → 2SICU 07-09 04:07 → 5NMEDONC 07-21 16:43
PROVIDERS: ADMIT Internal Medicine; ATTEND Internal Medicine
PROC: 5A0945A Assistance with Respiratory Ventilation, 24-96 Consecutive Hours, High Flow/Velocity Cannula (ICD-10-PCS; 2021-07-12)
PROC: 5A1955Z Respiratory Ventilation, Greater than 96 Consecutive Hours (ICD-10-PCS; principal; 2021-07-15)
PROC: 0BH17EZ Insertion of Endotracheal Airway into Trachea, Via Natural or Artificial Opening (ICD-10-PCS; principal; 2021-07-15)
PROC: 4A133B1 Monitoring of Arterial Pressure, Peripheral, Percutaneous Approach (ICD-10-PCS; 2021-07-15)
PROC: 03HY32Z Insertion of Monitoring Device into Upper Artery, Percutaneous Approach (ICD-10-PCS; 2021-07-15)
PROC: 4A133J1 Monitoring of Arterial Pulse, Peripheral, Percutaneous Approach (ICD-10-PCS; 2021-07-15)
PROC: 02HV33Z Insertion of Infusion Device into Superior Vena Cava, Percutaneous Approach (ICD-10-PCS; 2021-07-17)
DX: A41.89 Other specified sepsis (principal); G93.41 Metabolic encephalopathy; J10.08 Influenza due to other identified influenza virus with other specified pneumonia; J13 Pneumonia due to Streptococcus pneumoniae; J96.02 Acute respiratory failure with hypercapnia; E87.1 Hypo-osmolality and hyponatremia; E87.2 Acidosis; F10.231 Alcohol dependence with withdrawal delirium; J44.0 Chronic obstructive pulmonary disease with (acute) lower respiratory infection; J44.1 Chronic obstructive pulmonary disease with (acute) exacerbation; E11.9 Type 2 diabetes mellitus without complications; E83.42 Hypomagnesemia; E86.1 Hypovolemia; T42.4X5A Adverse effect of benzodiazepines, initial encounter; F17.210 Nicotine dependence, cigarettes, uncomplicated; R56.9 Unspecified convulsions; R65.20 Severe sepsis without septic shock; Z20.822 Contact with and (suspected) exposure to COVID-19; Z79.899 Other long term (current) drug therapy; Z82.49 Family history of ischemic heart disease and other diseases of the circulatory system; Z83.3 Family history of diabetes mellitus; Z87.01 Personal history of pneumonia (recurrent); J45.909 Unspecified asthma, uncomplicated; Z98.890 Other specified postprocedural states; Z78.1 Physical restraint status
CPT/HCPCS: 36415; 36600; 71045; 80048; 80053; 82805; 83605; 83735; 83880; 84100; 84132; 84145; 84443; 84484; 85025; 85027; 85610; 85730; 86140; 87040; 87070; 87077; 87186; 87205; 87324; 87502; 87635; 93005; 94002; 94003; 94640; 94760; 96361; 96365; 96366; 96372; 96375; 96376; 99291

== ENCOUNTER 2022-10-06 18:39 | Emergency (ER) | payer OTHER ==
[2022-10-06] MEDS ORDERED: SODIUM CHLORIDE 0.9% 500 ML 500 ML IV STA (19:06)
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
[2022-10-06 19:29] LABS: Basophils # (A) 0.1 k/uL (0-0.2); Basophils % (A) 1 %; Eosinophils # (A) 0.2 k/uL (0-0.7); Eosinophils % (A) 4 %; HGB 16.8 gm/dL (13.0-17.5); Lymphocytes # (A) 1.5 k/uL (1.0-4.8); Lymphocytes % (A) 23 %; MCV 108.6 fL (80.0-100.0); Macrocytosis Moderate; Mean Platelet Volume 7.5; Monocytes # (A) 0.4 k/uL (0-1.0); Monocytes % (A) 6 %; Neutrophils # (A) 4.2 k/uL (1.3-7.7); Neutrophils % (A) 65 %; Platelet Count 183 k/uL (150-450); RBC 4.42 m/uL (4.30-5.90); RDW 13.1 % (11.5-15.5); WBC 6.5 k/uL (3.8-10.6)
[2022-10-06 19:40] LABS: INR 0.9 (<1.2); Partial Thromboplastin Time 22.1 sec (22.0-30.0); Prothrombin Time 9.8 sec (9.0-12.0)
[2022-10-06 19:43] LABS: ALT 32 U/L (4-49); AST 49 U/L (17-59); African American GFR (CKD) >90 (>60 ml/min/1.73 sqM); Albumin 4.4 g/dL (3.5-5.0); Alkaline Phosphatase 102 U/L (38-126); Anion Gap 14 mmol/L; Blood Urea Nitrogen 9 mg/dL (9-20); Calcium 9.7 mg/dL (8.4-10.2); Carbon Dioxide 20 mmol/L (22-30); Chloride 102 mmol/L (98-107); Glucose 101 mg/dL (74-99); Non-African American GFR(CKD) >90 (>60 ml/min/1.73 sqM); Potassium 3.5 mmol/L (3.5-5.1); Sodium 136 mmol/L (137-145); Total Bilirubin 0.7 mg/dL (0.2-1.3); Total Protein 7.7 g/dL (6.3-8.2)
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
[2022-10-06] MEDS ORDERED: HYDROmorphone 0.5 MG/0.5 ML SYRINGE IVP STA (19:57)
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
[2022-10-06 20:26] LABS: Alcohol 189 mg/dL
[2022-10-06 20:54] LABS: Amphetamine Screen,Urine Not Detected (NotDetected); Barbiturate Screen,Urine Not Detected (NotDetected); Benzodiazepines Screen,Urine Not Detected (NotDetected); Cocaine Screen,Urine Not Detected (NotDetected); Methadone Screen, Urine Not Detected (NotDetected); Opiate Screen,Urine Detected (NotDetected); Oxycodone Screen, Urine Not Detected (NotDetected); Phencyclidine Screen,Urine Not Detected (NotDetected); Tricyclic Antidepressant,Urine Not Detected (NotDetected); Urn Cannabinoid Scrn Not Detected (NotDetected)
[2022-10-06 21:29] VITALS: PULSE 65; RESP 18; TEMP 98
[2022-10-06 21:35] VITALS: BP 143/116
== END 2022-10-06 21:38 | disposition home or self-care (01) ==
LOC: EC 18:39
DX: S00.93XA Contusion of unspecified part of head, initial encounter (principal); F10.129 Alcohol abuse with intoxication, unspecified; J44.9 Chronic obstructive pulmonary disease, unspecified; F17.200 Nicotine dependence, unspecified, uncomplicated; V49.40XA Driver injured in collision with unspecified motor vehicles in traffic accident, initial encounter; Y90.6 Blood alcohol level of 120-199 mg/100 ml
CPT/HCPCS: 36415; 93005; 86900; 86901; 80053; 84484; 85025; 85610; 85730; 86850; 80306; 80320; 72170; 73080; 71045; 72125; 70450; 71260; 74177; 99285; 96374; J1170; Q9967

== ENCOUNTER 2022-10-11 21:04 | Emergency (ER) | payer OTHER ==
[2022-10-12] MEDS ORDERED: LORazepam 2 MG/ML INJ IV STA (00:24)
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
[2022-10-12 01:42] LABS: Basophils # (A) 0.1 k/uL (0-0.2); Basophils % (A) 1 %; Eosinophils # (A) 0.2 k/uL (0-0.7); Eosinophils % (A) 3 %; HCT 46.7 % (39.0-53.0); HGB 16.5 gm/dL (13.0-17.5); Lymphocytes # (A) 1.2 k/uL (1.0-4.8); Lymphocytes % (A) 23 %; MCH 38.3 pg (25.0-35.0); MCHC 35.4 g/dL (31.0-37.0); MCV 108.2 fL (80.0-100.0); Macrocytosis Moderate; Mean Platelet Volume 7.7; Monocytes # (A) 0.5 k/uL (0-1.0); Monocytes % (A) 10 %; Neutrophils # (A) 3.2 k/uL (1.3-7.7); Neutrophils % (A) 60 %; Platelet Count 204 k/uL (150-450); RBC 4.32 m/uL (4.30-5.90); RDW 12.9 % (11.5-15.5); WBC 5.3 k/uL (3.8-10.6)
[2022-10-12 01:53] VITALS: TEMP 98
[2022-10-12 01:56] LABS: ALT 28 U/L (4-49); AST 50 U/L (17-59); African American GFR (CKD) >90 (>60 ml/min/1.73 sqM); Albumin 4.3 g/dL (3.5-5.0); Alkaline Phosphatase 105 U/L (38-126); Anion Gap 9 mmol/L; Blood Urea Nitrogen 15 mg/dL (9-20); Calcium 9.7 mg/dL (8.4-10.2); Carbon Dioxide 27 mmol/L (22-30); Chloride 98 mmol/L (98-107); Glucose 78 mg/dL (74-99); Magnesium 1.6 mg/dL (1.6-2.3); Non-African American GFR(CKD) >90 (>60 ml/min/1.73 sqM); Potassium 3.8 mmol/L (3.5-5.1); Sodium 134 mmol/L (137-145); Total Protein 7.9 g/dL (6.3-8.2)
[2022-10-12] MEDS ORDERED: hydrALAZINE HCL 20 MG/ML 1 ML VIAL IVP STA (02:04)
[2022-10-12] MEDS ORDERED: LABETALOL 5 MG/ML VIAL MDV IVP STA (02:45)
[2022-10-12 05:31] VITALS: BP 142/107; PULSE 89; RESP 18
== END 2022-10-12 05:40 | disposition home or self-care (01) ==
LOC: EC 21:04
DX: I10 Essential (primary) hypertension (principal); J44.9 Chronic obstructive pulmonary disease, unspecified; F17.200 Nicotine dependence, unspecified, uncomplicated
CPT/HCPCS: 36415; 80053; 83735; 85025; 99283; 96374; 96375 ×2; J2060; J0360; J1920

== ENCOUNTER 2024-07-31 14:48 | Emergency (ER) | payer OTHER ==
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
[2024-07-31] MEDS: DEXAMETHASONE SOD PHOSPHATE 10 MG/ML 1 ML VIAL IM STA (15:18)
[2024-07-31] MEDS: IPRATROPIUM-ALBUTEROL 3 ML NEB INHALATION STA ×2 (15:25→18:14)
--- NOTE | 2024-07-31 15:49 | XR ---
EXAMINATION TYPE: XR chest 1V portable DATE OF EXAM: 07/31/2024 3:24 PM COMPARISON: 10/06/2022 CLINICAL INDICATION: Male, 59 years old with history of sob, TECHNIQUE: XR chest 1V portable view(s) obtained. FINDINGS: The heart size is normal. The pulmonary vasculature is normal. The lungs are clear. IMPRESSION: 1. No acute pulmonary process. [facility], , 07/31/2024 3:47 PM
[2024-07-31] MEDS: SODIUM CHLORIDE 0.9% 1,000 ML IV ONE (16:43)
[2024-07-31 16:44] LABS: Basophils # (A) 0.03 10*3/uL (0.00-0.10); Basophils % (A) 0.6 %; Eosinophils # (A) 0.03 10*3/uL (0.04-0.35); Eosinophils % (A) 0.6 %; HCT 32.8 % (39.6-50.0); HGB 11.8 g/dL (13.0-17.0); Lymphocytes # (A) 1.06 10*3/uL (0.90-5.00); Lymphocytes % (A) 20.1 %; MCH 37.5 pg (27.0-32.0); MCV 104.1 fL (80.0-97.0); Mean Platelet Volume 9.3 fL (9.5-12.2); Monocytes # (A) 0.21 10*3/uL (0.20-1.00); Neutrophils # (A) 3.94 10*3/uL (1.80-7.70); Neutrophils % (A) 74.5 %; Platelet Count 512 10*3/uL (140-440); RBC 3.15 10*6/uL (4.40-5.60); RDW 16.4 % (11.5-14.5); WBC 5.28 10*3/uL (4.50-10.00)
[2024-07-31 16:55] LABS: ALT 27 U/L (4-49); AST 72 U/L (17-59); African American GFR (CKD) >90 (>60 ml/min/1.73 sqM); Albumin 4.2 g/dL (3.5-5.0); Alkaline Phosphatase 140 U/L (38-126); Anion Gap 12 mmol/L; Blood Urea Nitrogen 6 mg/dL (9-20); Calcium 8.9 mg/dL (8.4-10.2); Carbon Dioxide 25 mmol/L (22-30); Chloride 102 mmol/L (98-107); Glucose 119 mg/dL (74-99); INR 1.1 (<1.2); Magnesium 1.1 mg/dL (1.6-2.3); Non-African American GFR(CKD) >90 (>60 ml/min/1.73 sqM); Partial Thromboplastin Time 23.6 sec (22.0-30.0); Potassium 3.1 mmol/L (3.5-5.1); Prothrombin Time 12.2 sec (10.0-12.5); Sodium 139 mmol/L (137-145); Total Bilirubin 0.6 mg/dL (0.2-1.3)
[2024-07-31 17:03] LABS: NT-Pro-B-Type Natriuretic Pept 145 pg/mL
[2024-07-31] MEDS: MAGNESIUM OXIDE 400 MG TAB PO STA ×2 (18:22→19:02)
[2024-07-31] MEDS: POTASSIUM BICARBONATE/CIT AC 20 MEQ TABLET.EFF PO ONE ×2 (18:22→19:03)
[2024-07-31] MEDS: MAGNESIUM SULFATE-D5W PMX 1 GM in DEXTROSE/WATER 1 100ML.BAG IVPB ONE (18:24)
[2024-07-31 19:46] VITALS: RESP 18
[2024-07-31 20:29] VITALS: BP 122/91; PULSE 94; TEMP 98.5
== END 2024-07-31 20:29 | disposition home or self-care (01) ==
LOC: EC 14:48
DX: E83.42 Hypomagnesemia (principal); E87.6 Hypokalemia; R06.02 Shortness of breath; F17.200 Nicotine dependence, unspecified, uncomplicated
CPT/HCPCS: 36415; 94640 ×2; 93005; 83880; 80053; 83605; 83735; 84484; 85025; 85610; 85730; 71045; 99285; 96365; 96366; 96361; 96372; J1100; J3475

== ENCOUNTER → 2024-08-05 | Outpatient (CLI) | payer OTHER ==
--- NOTE | 2024-08-08 09:21 | MR ---
EXAMINATION TYPE: MR abdomen wo/w con DATE OF EXAM: 08/05/2024 1:05 PM COMPARISON: 10/16/2022 CLINICAL INDICATION: Male, 59 years old with history of R77.2 ABNORMALITY OF ALPHAFETOPROTEIN; PHH, A bnormality/Elevation of Alphafetoprotein TECHNIQUE: Multiplanar multi-sequence imaging was performed without contrast. Post contrast imaging was performed. Post IV contrast subtraction images were also submitted for review. IV Contrast: 7ml mL Gadobutrol FINDINGS: LOWER CHEST: No gross irregularity. ABDOMEN Liver: No evidence for cirrhosis. Signal dropout on chemical shift out of phase imaging. Gallbladder and Bile ducts: No evidence for ductal dilation, or biliary stricture or evidence of chol edocholithiasis. The gallbladder demonstrates biliary sludge layering dependently versus small gallst ones. Pancreas: No ductal dilation. No evidence for solid mass. Spleen: Normal for size. Adrenal glands: Unremarkable. Kidneys: No evidence for obstructive uropathy. No suspicious renal masses. Stomach and Bowel: No evidence for bowel wall thickening or evidence for obstruction. Retroperitoneum/Peritoneum: No evidence of pneumoperitoneum or free fluid. Vasculature: No aortic aneurysm. Musculoskeletal: The osseous structures appear intact. Lymph Nodes: No gross evidence for lymphadenopathy. Abdominal wall: Unremarkable. IMPRESSION: 1. No suspicious observations to correlate with elevated alpha-fetoprotein. Consider short-term foll ow-up in 3 6 months. 2. Hepatic steatosis. 3. Biliary sludge/small gallstones. [facility], , 08/08/2024 9:19 AM
== END | disposition home or self-care (01) ==
LOC: RADMRIMAIN 11:57
PROVIDERS: ATTEND Internal Medicine Gastroenterology
DX: K76.0 Fatty (change of) liver, not elsewhere classified (principal); K80.20 Calculus of gallbladder without cholecystitis without obstruction; R77.2 Abnormality of alphafetoprotein
CPT/HCPCS: 74183; A9585

== ENCOUNTER 2024-08-27 18:53 | Emergency (ER) | payer OTHER ==
[2024-08-27 19:02] VITALS: BP 108/76; PULSE 50; RESP 16; TEMP 98.4
--- NOTE | 2024-08-27 19:56 | ED ---
Dizziness HPI - General Chief Complaint: Dizziness Stated Complaint: Weakness Time Seen by Provider: 08/27/24 19:55 Source: patient Mode of arrival: wheelchair Limitations: no limitations - History of Present Illness Initial Comments: quick note: 59-year-old male presenting with chief complaint of dizziness. He states that for the past few days when he stands up he feels dizzy and his heart feels like it is racing. He denies any chest pain. He does admit to shortness of breath. No nausea vomiting or abdominal pain. - Related Data Home Medications Medication Instructions Recorded Confirmed Fluticasone/Umeclidin/Vilanter 1 puff INHALATION RT-DAILY 07/31/24 07/31/24 [Trelegy Ellipta 100-62.5-25] Prolastin-C 1,000mg(+/-)/20ml 4,000 mg IV MO 07/31/24 07/31/24 Solution dilTIAZem HCL [Cardizem CD] 120 mg PO DAILY 07/31/24 07/31/24 Allergies Allergy/AdvReac Type Severity Reaction Status Date / Time No Known Allergies Allergy Verified 08/27/24 19:02 Review of Systems ROS Statement: Those systems with pertinent positive or pertinent negative responses have been documented in the HPI. ROS Other: All systems not noted in ROS Statement are negative. Past Medical History Past Medical History: COPD, Seizure Disorder Additional Past Medical History / Comment(s): ETOH abuse, mother states pt did have another seizure a few years ago but does not know if it was d/t alcohol withdrawal, back pain History of Any Multi-Drug Resistant Organisms: None Reported Past Surgical History: Hernia Repair Additional Past Surgical History / Comment(s): Bilateral inguinal hernia repairs per past medical record but mother cannot recall this. Past Anesthesia/Blood Transfusion Reactions: No Reported Reaction Past Psychological History: No Psychological Hx Reported Smoking Status: Current every day smoker Past Alcohol Use History: Occasional Past Drug Use History: None Reported - Past Family History Mother Family Medical History: Diabetes Mellitus Additional Family Medical History / Comment(s): Mother has type II diabetes and trigeminal neuralgia and has a murmur. Father Family Medical History: Coronary Artery Disease (CAD) Additional Family Medical History / Comment(s): Father had CABG and a mitral valve replaced. He is . General Exam - General Exam Comments Initial Comments: Visual Physical Exam Vital signs reviewed General: Well-appearing, nontoxic, no acute distress. Head: Normocephalic, atraumatic Eyes: PERRLA, EOMI ENT: Airway patent Chest: Nonlabored breathing Skin: No visual rash, normal skin tone Neuro: Alert and oriented 3 Musculoskeletal: No gross abnormalities Limitations: no limitations Course Vital Signs 08/27/24 18:57 Temperature 98.4 F Pulse Rate 50 L Respiratory 16 Rate Blood Pressure 108/76 O2 Sat by Pulse 96 Oximetry Medical Decision Making - Medical Decision Making I performed the quick note portion of this visit, electronically signed Hector Vitale PA-C Patient later eloped from the waiting room prior to complete evaluation - Lab Data Result diagrams: 08/27/24 20:19 08/27/24 20:19 Lab Results 08/27/24 08/27/24 08/27/24 Range/Units 20:19 20:19 20:19 WBC 6.15 (4.50-10.00) 10*3/uL RBC 2.73 L (4.40-5.60) 10*6/uL Hgb 10.1 L (13.0-17.0) g/dL Hct 27.3 L (39.6-50.0) % MCV 100.0 H (80.0-97.0) fL MCH 37.0 H (27.0-32.0) pg MCHC 37.0 (32.0-37.0) g/dL Plt Count 160 D (140-440) 10*3/uL MPV 10.9 (9.5-12.2) fL Immature Gran % (Auto) 2.1 % Neutrophils % 51.0 % Lymphocytes % 32.4 % Monocytes % 12.0 % Eosinophils % 1.8 % Basophils % 0.7 % Immature Gran # 0.13 H (0.00-0.04) 10*3/uL Neutrophils # 3.14 (1.80-7.70) 10*3/uL Lymphocytes # 1.99 (0.90-5.00) 10*3/uL Monocytes # 0.74 (0.20-1.00) 10*3/uL Eosinophils # 0.11 (0.04-0.35) 10*3/uL Basophils # 0.04 (0.00-0.10) 10*3/uL PT 11.8 (10.0-12.5) sec INR 1.1 (<1.2) Sodium 136 L (137-145) mmol/L Potassium 4.1 (3.5-5.1) mmol/L Chloride 100 (98-107) mmol/L Carbon Dioxide 24 (22-30) mmol/L Anion Gap 12 mmol/L BUN 7 L (9-20) mg/dL Creatinine 0.82 (0.66-1.25) mg/dL Est GFR (CKD-EPI)AfAm >90 (>60 ml/min/1.73 sqM) Est GFR (CKD-EPI)NonAf >90 (>60 ml/min/1.73 sqM) Glucose 99 (74-99) mg/dL Lactic Ac Sepsis Rflx Plasma Lactic Acid Pop (0.7-2.0) mmol/L Calcium 8.7 (8.4-10.2) mg/dL Magnesium 1.1 L (1.6-2.3) mg/dL Total Bilirubin 1.5 H (0.2-1.3) mg/dL AST 58 (17-59) U/L ALT 18 (4-49) U/L Alkaline Phosphatase 138 H (38-126) U/L Troponin I (0.000-0.034) ng/mL Total Protein 7.2 (6.3-8.2) g/dL Albumin 4.5 (3.5-5.0) g/dL 08/27/24 08/27/24 08/27/24 Range/Units 20:19 20:19 21:15 WBC (4.50-10.00) 10*3/uL RBC (4.40-5.60) 10*6/uL Hgb (13.0-17.0) g/dL Hct (39.6-50.0) % MCV (80.0-97.0) fL MCH (27.0-32.0) pg MCHC (32.0-37.0) g/dL Plt Count (140-440) 10*3/uL MPV (9.5-12.2) fL Immature Gran % (Auto) % Neutrophils % % Lymphocytes % % Monocytes % % Eosinophils % % Basophils % % Immature Gran # (0.00-0.04) 10*3/uL Neutrophils # (1.80-7.70) 10*3/uL Lymphocytes # (0.90-5.00) 10*3/uL Monocytes # (0.20-1.00) 10*3/uL Eosinophils # (0.04-0.35) 10*3/uL Basophils # (0.00-0.10) 10*3/uL PT (10.0-12.5) sec INR (<1.2) Sodium (137-145) mmol/L Potassium (3.5-5.1) mmol/L Chloride (98-107) mmol/L Carbon Dioxide (22-30) mmol/L Anion Gap mmol/L BUN (9-20) mg/dL Creatinine (0.66-1.25) mg/dL Est GFR (CKD-EPI)AfAm (>60 ml/min/1.73 sqM) Est GFR (CKD-EPI)NonAf (>60 ml/min/1.73 sqM) Glucose (74-99) mg/dL Lactic Ac Sepsis Rflx Y Plasma Lactic Acid Pop 3.9 H* (0.7-2.0) mmol/L Calcium (8.4-10.2) mg/dL Magnesium (1.6-2.3) mg/dL Total Bilirubin (0.2-1.3) mg/dL AST (17-59) U/L ALT (4-49) U/L Alkaline Phosphatase (38-126) U/L Troponin I 0.017 (0.000-0.034) ng/mL Total Protein (6.3-8.2) g/dL Albumin (3.5-5.0) g/dL Disposition Clinical Impression: Dizziness Disposition: LEFT AGAINST MEDICAL ADVICE Condition: Undetermined Referrals: None,Stated [Primary Care Provider] - 1-2 days
[2024-08-27 20:51] LABS: INR 1.1 (<1.2); Prothrombin Time 11.8 sec (10.0-12.5)
[2024-08-27 20:56] LABS: ALT 18 U/L (4-49); African American GFR (CKD) >90 (>60 ml/min/1.73 sqM); Anion Gap 12 mmol/L; Blood Urea Nitrogen 7 mg/dL (9-20); Calcium 8.7 mg/dL (8.4-10.2); Carbon Dioxide 24 mmol/L (22-30); Chloride 100 mmol/L (98-107); Glucose 99 mg/dL (74-99); Magnesium 1.1 mg/dL (1.6-2.3); Non-African American GFR(CKD) >90 (>60 ml/min/1.73 sqM); Sodium 136 mmol/L (137-145); Total Bilirubin 1.5 mg/dL (0.2-1.3); Total Protein 7.2 g/dL (6.3-8.2)
[2024-08-27 20:59] LABS: Albumin 4.5 g/dL (3.5-5.0); Potassium 4.1 mmol/L (3.5-5.1)
[2024-08-27 21:00] LABS: AST 58 U/L (17-59); Alkaline Phosphatase 138 U/L (38-126)
[2024-08-27 21:35] LABS: Basophils # (A) 0.04 10*3/uL (0.00-0.10); Basophils % (A) 0.7 %; Eosinophils # (A) 0.11 10*3/uL (0.04-0.35); Eosinophils % (A) 1.8 %; HCT 27.3 % (39.6-50.0); HGB 10.1 g/dL (13.0-17.0); Lymphocytes # (A) 1.99 10*3/uL (0.90-5.00); Lymphocytes % (A) 32.4 %; Mean Platelet Volume 10.9 fL (9.5-12.2); Monocytes # (A) 0.74 10*3/uL (0.20-1.00); Neutrophils # (A) 3.14 10*3/uL (1.80-7.70); Platelet Count 160 10*3/uL (140-440); RBC 2.73 10*6/uL (4.40-5.60); WBC 6.15 10*3/uL (4.50-10.00)
--- NOTE | 2024-08-27 22:42 | XR ---
EXAMINATION TYPE: XR chest 2V DATE OF EXAM: 08/27/2024 8:41 PM CLINICAL INDICATION:Male, 59 years old with history of palpitations; PHH COMPARISON: Chest radiographs from chest radiograph 07/31/2024 TECHNIQUE: XR chest 2V Frontal view of the chest. FINDINGS: Lungs/Pleura: Lungs are hyperinflated. Hazy opacification is suggested in the right lower medial lung zone. There is no evidence of pleural effusion or pneumothorax. Pulmonary vascularity: Unremarkable. Heart/mediastinum: Cardiomediastinal silhouette is unremarkable. Musculoskeletal: No acute osseous pathology. IMPRESSION: Hazy opacity is noted in the right lower medial lung zone which may represent an acute infectious/inf lammatory airspace process. Emphysematous appearance of the lungs. [facility], , 08/27/2024 10:40 PM
== END 2024-08-27 21:50 | disposition left against medical advice (07) ==
LOC: EC 18:53
DX: R42 Dizziness and giddiness (principal); F17.200 Nicotine dependence, unspecified, uncomplicated; Z53.29 Procedure and treatment not carried out because of patient's decision for other reasons
CPT/HCPCS: 36415; 71046; 80053; 83605; 83735; 84484; 85025; 85610; 93005; 99284